=== PATIENT | male | born 1945 | race Caucasian/White ===

== ENCOUNTER 2018-08-17 12:32 | Inpatient (IN) ==
--- NOTE | 2018-08-17 13:20 | Emergency Department Note ---
Disposition Clinical Impression: Increased oxygen demand, Failure of outpatient treatment Community acquired pneumonia Qualifiers: Laterality: right Lung location: lower lobe of lung Qualified Code(s): J18.1 - Lobar pneumonia, unspecified organism Disposition: Admitted As Inpatient Condition: Fair Referrals: Filiberto Weiss DO [Primary Care Provider] - Time of Disposition: 14:42 General Adult HPI - General Chief complaint: ED Shortness of Breath/Dyspnea Stated complaint: Weakness,FIDEL,Chills Time Seen by Provider: 08/17/18 12:43 Source: patient Mode of arrival: EMS Limitations: no limitations Nursing Notes Reviewed: Yes Vital Signs Reviewed: Yes - History of Present Illness HPI Narrative: 72-year-old male presents with cough and objective fever. Patient with history of lung cancer to the right lung, with complete left lung removal. Patient pr esents with 1 week of cough, without production, subjective fever and chills that is worsening over the past few days. He was seen by his primary care provider a few days ago, at that point in time he was prescribed prednisone for 5 days as well as azithromycin pack. He has been taking this as prescribed however 2 days ago his symptoms worsened. He does wear 2 L nasal cannula at home chronically he has had to go up to 3, he has had increased exertional dyspnea. He does have pain in the middle of his chest when he coughs. Otherwise no chest pain present currently. No abdominal pain, nausea, vomiting, change in bowels or bladder. Pain Scale: 0 - Related Data Home Medications Medication Instructions Recorded Confirmed Acetaminophen [Non-Aspirin] 325 mg PO AD PRN 04/02/16 04/15/18 Albuterol Sulfate [Proair Hfa] 1 puff IH AD PRN 04/02/16 04/15/18 Amlodipine Besylate 2.5 mg PO DAILY 04/02/16 04/15/18 Metoprolol Succinate 100 mg PO DAILY 04/02/16 04/15/18 Simvastatin [Zocor] 40 mg PO HS 04/02/16 04/15/18 Tiotropium [Spiriva] 18 mcg IH DAILY 04/02/16 04/15/18 Allergies Allergy/AdvReac Type Severity Reaction Status Date / Time cephalexin [From Keflex] Allergy Severe Anaphylaxis Verified 04/15/18 11:20 Penicillins Allergy Severe Anaphylaxis Verified 04/15/18 11:20 All systems ED: reviewed and negative except as stated. Review of Systems: As Per HPI Constitutional: Reports: fever, chills ENT ED: Reports: congestion Cardiovascular: Reports: chest pain, dyspnea on exertion. Denies: palpitations, syncope Respiratory: Reports: cough, dyspnea. Denies: wheezes, hemoptysis, sputum production Gastrointestinal: Denies: abdominal pain, nausea, vomiting Musculoskeletal: Denies: back pain Integumentary: Denies: rash Neurological: Denies: headache, weakness, confusion Endocrine: Denies: fatigue Past Medical History - Past Medical History Medical history: Reports: cancer, COPD, diabetes, hyperlipidemia, myocardial infarction Psychiatric history: Reports: no psych history - Social History Smoking Status: Former smoker Smokeless Tobacco Status: No Alcohol use: Reports: none Drug use: Reports: none Physical Exam General: Conversant. No apparent distress. Follow commands. Appears stated age. Neck: No JVD. Trachea midline. Neck supple. Eyes: PERRL. No scleral icterus. HENT: Normocephalic and atraumatic. Dry mucous membranes. Patient with 2 L nasal cannula Cardiovascular: Regular rate and rhythm. Normal S1 and S2. No murmurs appreciated. Normal capillary refill. Extremities well perfused with 2+ distal pulses bilaterally. No edema. Pulmonary: without breath sounds to the right side, left breath sounds are appropriate without wheezing or rhonchi No wheezes, rales, or rhonchi. Not in respiratory distress. Speaks in full sentences. Abdomen: Soft, nondistended, without tenderness. No bruits or masses. No guarding or rebound. Neuro: Alert and oriented x3. No slurred speech. No focal deficits noted. Skin: No rashes noted on visualized skin. Musculoskeletal: No bony abnormalities visualized. Moves all extremities. Psych: Normal mood. Pleasant. Makes appropriate eye contact. - General Limitations: no limitations General appearance: alert, in no apparent distress Course Vital Signs Temperature 99.1 F 08/17/18 12:42 Pulse Rate 79 08/17/18 12:42 Respiratory Rate 26 08/17/18 12:42 Blood Pressure 141/67 08/17/18 12:42 O2 Sat by Pulse Oximetry 91 08/17/18 12:42 Temperature 99.1 F 08/17/18 12:42 Pulse Rate 79 08/17/18 12:42 Respiratory Rate 27 08/17/18 15:43 Blood Pressure 140/65 08/17/18 15:43 O2 Sat by Pulse Oximetry 91 08/17/18 12:42 Oxygen Delivery Oxygen Delivery Nasal Cannula Medical Decision Making - [facility] Narrative Medical decision making narrative: Patient is a 72-year-old male presenting with cough. Patient with known history of right lung removal, subsequently on 2 L of cannula at home. On arrival, patient is satting at 92% on 3 L nasal cannula, this is about patient's baseline of 90-92%. It has been diagnosed with pneumonia by outpatient provider proximally 5-6 days ago, he is fully completed his azithromycin course PREDNISONE. Patient arriving with increased symptoms over the past few days. On arrival, patient is to, however this appears to be patient's baseline, afebrile and normotensive. He is not tachycardic. Patient otherwise in no acute distress, alert and oriented 3. CBC, BMP is was troponin are all within normal limits. Chest x-ray does show continued pulmonary edema which is suggestive of possible continued early pneumonia. This patient has a [place] outpatient therapy at this point as well as his requiring increased oxygen demand, with exertional shortness of breath, feels that the patient would be most appropriate be admitted for observation and treatment. At this point in time, he has been started on Levaquin, as he has an anaphylactic Keflex allergy. I did speak with the patient and his in the room, they agree to admission at this point in time. - Medical Records Medical records reviewed: Yes I reviewed the patient's medical records. - Lab Data Lab results reviewed: Yes I reviewed the patient's lab results. Result diagrams: 08/17/18 13:00 08/17/18 13:00 Lab Results 08/17/18 08/17/18 08/17/18 Range/Units 13:00 13:00 13:00 WBC 9.5 (4.3-11.1) K/mcL RBC 4.28 (4.19-5.50) M/mcL Hgb 13.7 (12.9-16.9) g/dL Hct 43.3 (37.5-50.1) % MCV 101.2 H (83.0-100.0) fL MCH 32.0 (28.0-33.3) pg MCHC 31.6 (31.6-35.5) g/dL RDW 13.7 (11.5-14.5) % Plt Count 148 (140-400) K/mcL MPV 10.1 (9.4-12.4) fL Immature Gran % 0.9 (0-4) % Seg Neutrophils % 84.3 % Lymphocytes % 6.2 % Monocytes % 7.8 % Eosinophils % 0.7 % Basophils % 0.1 % Neutrophils # 8.0 (1.6-8.9) K/mcL Lymphocytes # 0.6 (0.6-4.6) K/mcL Monocytes # 0.7 (0.0-1.3) K/mcL Eosinophils # 0.1 (0.0-0.6) K/mcL Basophils # 0.0 (0.0-0.2) K/mcL Sodium 137 (136-145) mEq/L Potassium 4.0 (3.5-5.1) mEq/L Chloride 95 L (98-107) mEq/L Carbon Dioxide 34 H (23-29) mEq/L BUN 14 (8-23) mg/dL Creatinine 0.70 (0.70-1.30) mg/dL Est GFR ( Amer) > 60 (> 60) Est GFR (Non-Af Amer) > 60 (> 60) BUN/Creatinine Ratio 20 (6-26) Glucose 167 H (70-105) mg/dL Calculated Osmolality 288 (280-300) Lactic Acid 0.9 (0.5-2.2) mmol/L Calcium 9.1 (8.6-10.3) mg/dL Troponin I < 0.03 (< 0.04) ng/mL B-Natriuretic Peptide (Less than 100) pg/mL Urine Color (Yellow) Urine Clarity (Clear) Urine pH (5.0-8.0) pH Units Ur Specific [place] (1.010-1.025) Urine Protein (Neg-Trace) mg/dL Urine Glucose (UA) (Normal) mg/dL Urine Ketones (Negative) mg/dL Urine Blood (Negative) Urine Nitrite (Negative) Urine Bilirubin (Negative) Urine Urobilinogen (Normal) mg/dL Ur Leukocyte Esterase (Negative) Ur Culture Indicated? (NO) 08/17/18 08/17/18 08/17/18 Range/Units 13:00 13:27 15:11 WBC (4.3-11.1) K/mcL RBC (4.19-5.50) M/mcL Hgb (12.9-16.9) g/dL Hct (37.5-50.1) % MCV (83.0-100.0) fL MCH (28.0-33.3) pg MCHC (31.6-35.5) g/dL RDW (11.5-14.5) % Plt Count (140-400) K/mcL MPV (9.4-12.4) fL Immature Gran % (0-4) % Seg Neutrophils % % Lymphocytes % % Monocytes % % Eosinophils % % Basophils % % Neutrophils # (1.6-8.9) K/mcL Lymphocytes # (0.6-4.6) K/mcL Monocytes # (0.0-1.3) K/mcL Eosinophils # (0.0-0.6) K/mcL Basophils # (0.0-0.2) K/mcL Sodium (136-145) mEq/L Potassium (3.5-5.1) mEq/L Chloride (98-107) mEq/L Carbon Dioxide (23-29) mEq/L BUN (8-23) mg/dL Creatinine (0.70-1.30) mg/dL Est GFR ( Amer) (> 60) Est GFR (Non-Af Amer) (> 60) BUN/Creatinine Ratio (6-26) Glucose (70-105) mg/dL Calculated Osmolality (280-300) Lactic Acid 0.6 (0.5-2.2) mmol/L Calcium (8.6-10.3) mg/dL Troponin I (< 0.04) ng/mL B-Natriuretic Peptide 124 H (Less than 100) pg/mL Urine Color Yellow (Yellow) Urine Clarity Clear (Clear) Urine pH 7.0 (5.0-8.0) pH Units Ur Specific [place] 1.010 (1.010-1.025) Urine Protein Negative (Neg-Trace) mg/dL Urine Glucose (UA) Normal (Normal) mg/dL Urine Ketones Negative (Negative) mg/dL Urine Blood Negative (Negative) Urine Nitrite Negative (Negative) Urine Bilirubin Negative (Negative) Urine Urobilinogen 4.0 H (Normal) mg/dL Ur Leukocyte Esterase Negative (Negative) Ur Culture Indicated? NO (NO) - Radiology Data Radiology results reviewed: Yes I reviewed the patient's radiology results. Chest X-Ray 08/17/18 13:08 IMPRESSION: Unchanged opacification of the right hemithorax Possible pulmonary edema noted in the left lung D/ / Raimundo Odom MD / Raimundo dOom MD Interpreting Provider: Raimundo Odom MD - EKG Data EKG #1 EKG attestation: Yes I reviewed and interpreted this EKG. EKG results narrative: EKG performed at 1310 with ventricular rate of 77, regular rhythm, normal axis, no ST segment elevation, depression or T-wave changes, RSR prime is noted in V1 and V2. Attestation Statement - Attestation Attestation: I, Rory Harvey DO, examined this patient [id number] and my medical decision-making was reviewed with Dr. Boone Barone , Resident Physician. I ag ree with the documented findings, disposition and treatment plan as described except to the extent set forth below. I personally supervised and was present for the aguilar/critical portions of the procedures completed by the resident documented below. Please see my progress notes for details.
[2018-08-17 13:22] LABS: Basophils % 0.1 %; Eosinophils # 0.1 K/mcL (0.0-0.6); Eosinophils % 0.7 %; Hematocrit 43.3 % (37.5-50.1); Hemoglobin 13.7 g/dL (12.9-16.9); Immature Granulocytes % 0.9 % (0-4); Lymphocytes # 0.6 K/mcL (0.6-4.6); Lymphocytes % 6.2 %; Mean Corpuscular HGB Conc 31.6 g/dL (31.6-35.5); Mean Corpuscular Volume 101.2 fL (83.0-100.0); Mean Platelet Volume 10.1 fL (9.4-12.4); Monocytes # 0.7 K/mcL (0.0-1.3); Monocytes % 7.8 %; Platelet Count 148 K/mcL (140-400); Red Blood Count 4.28 M/mcL (4.19-5.50); Red Cell Distribution Width 13.7 % (11.5-14.5); Segmented Neutrophils % 84.3 %; White Blood Count 9.5 K/mcL (4.3-11.1)
[2018-08-17 13:35] LABS: Bilirubin,Urine Negative (Negative); Blood,Urine Negative (Negative); Clarity,Urine Clear (Clear); Color,Urine Yellow (Yellow); Glucose,Urine (UA) Normal (Normal); Ketones,Urine Negative (Negative); Leukocyte Esterase,Urine Negative (Negative); Nitrite,Urine Negative (Negative); Protein,Urine Negative (Neg-Trace)
[2018-08-17 13:41] LABS: BUN/Creatinine Ratio 20 (6-26); Blood Urea Nitrogen 14 mg/dL (8-23); Calcium 9.1 mg/dL (8.6-10.3); Carbon Dioxide 34 mEq/L (23-29); Chloride 95 mEq/L (98-107); Glucose 167 mg/dL (70-105); Osmolality,Calculated 288 (280-300); Sodium 137 mEq/L (136-145); Troponin I < 0.03 ng/mL (< 0.04); eGFR For African Americans > 60 (> 60); eGFR For Non-African Americans > 60 (> 60)
--- NOTE | 2018-08-17 14:14 | Emergency Department Note ---
Disposition Clinical Impression: Increased oxygen demand, Failure of outpatient treatment Community acquired pneumonia Qualifiers: Laterality: right Lung location: lower lobe of lung Qualified Code(s): J18.1 - Lobar pneumonia, unspecified organism Disposition: Admitted As Inpatient Condition: Fair Time of Disposition: 15:10 General Adult HPI - General Chief complaint: ED Shortness of Breath/Dyspnea Stated complaint: Weakness,FIDEL,Chills Time Seen by Provider: 08/17/18 12:43 Source: patient Mode of arrival: EMS Limitations: no limitations - History of Present Illness Pain Scale: 0 - Related Data Home Medications Medication Instructions Recorded Confirmed Acetaminophen [Non-Aspirin] 325 mg PO AD PRN 04/02/16 04/15/18 Albuterol Sulfate [Proair Hfa] 1 puff IH AD PRN 04/02/16 04/15/18 Amlodipine Besylate 2.5 mg PO DAILY 04/02/16 04/15/18 Metoprolol Succinate 100 mg PO DAILY 04/02/16 04/15/18 Simvastatin [Zocor] 40 mg PO HS 04/02/16 04/15/18 Tiotropium [Spiriva] 18 mcg IH DAILY 04/02/16 04/15/18 Allergies Allergy/AdvReac Type Severity Reaction Status Date / Time cephalexin [From Keflex] Allergy Severe Anaphylaxis Verified 04/15/18 11:20 Penicillins Allergy Severe Anaphylaxis Verified 04/15/18 11:20 Constitutional: Reports: fever, chills ENT ED: Reports: congestion Cardiovascular: Reports: chest pain, dyspnea on exertion. Denies: palpitations, syncope Respiratory: Reports: cough, dyspnea. Denies: wheezes, hemoptysis, sputum production Gastrointestinal: Denies: abdominal pain, nausea, vomiting Musculoskeletal: Denies: back pain Integumentary: Denies: rash Neurological: Denies: headache, weakness, confusion Endocrine: Denies: fatigue Past Medical History - Past Medical History Medical history: Reports: cancer, COPD, diabetes, hyperlipidemia, myocardial infarction Psychiatric history: Reports: no psych history - Social History Smoking Status: Former smoker Smokeless Tobacco Status: No Alcohol use: Reports: none Drug use: Reports: none Physical Exam - General Limitations: no limitations General appearance: alert, in no apparent distress Course Vital Signs Temperature 99.1 F 08/17/18 12:42 Pulse Rate 79 08/17/18 12:42 Respiratory Rate 26 08/17/18 12:42 Blood Pressure 141/67 08/17/18 12:42 O2 Sat by Pulse Oximetry 91 08/17/18 12:42 Temperature 99.1 F 08/17/18 12:42 Pulse Rate 79 08/17/18 12:42 Respiratory Rate 26 08/17/18 12:42 Blood Pressure 141/67 08/17/18 12:42 O2 Sat by Pulse Oximetry 91 08/17/18 12:42 Oxygen Delivery Oxygen Delivery Nasal Cannula Medical Decision Making - Lab Data Result diagrams: 08/17/18 13:00 08/17/18 13:00 Lab Results 08/17/18 08/17/18 08/17/18 Range/Units 13:00 13:00 13:00 WBC 9.5 (4.3-11.1) K/mcL RBC 4.28 (4.19-5.50) M/mcL Hgb 13.7 (12.9-16.9) g/dL Hct 43.3 (37.5-50.1) % MCV 101.2 H (83.0-100.0) fL MCH 32.0 (28.0-33.3) pg MCHC 31.6 (31.6-35.5) g/dL RDW 13.7 (11.5-14.5) % Plt Count 148 (140-400) K/mcL MPV 10.1 (9.4-12.4) fL Immature Gran % 0.9 (0-4) % Seg Neutrophils % 84.3 % Lymphocytes % 6.2 % Monocytes % 7.8 % Eosinophils % 0.7 % Basophils % 0.1 % Neutrophils # 8.0 (1.6-8.9) K/mcL Lymphocytes # 0.6 (0.6-4.6) K/mcL Monocytes # 0.7 (0.0-1.3) K/mcL Eosinophils # 0.1 (0.0-0.6) K/mcL Basophils # 0.0 (0.0-0.2) K/mcL Sodium 137 (136-145) mEq/L Potassium 4.0 (3.5-5.1) mEq/L Chloride 95 L (98-107) mEq/L Carbon Dioxide 34 H (23-29) mEq/L BUN 14 (8-23) mg/dL Creatinine 0.70 (0.70-1.30) mg/dL Est GFR ( Amer) > 60 (> 60) Est GFR (Non-Af Amer) > 60 (> 60) BUN/Creatinine Ratio 20 (6-26) Glucose 167 H (70-105) mg/dL Calculated Osmolality 288 (280-300) Lactic Acid 0.9 (0.5-2.2) mmol/L Calcium 9.1 (8.6-10.3) mg/dL Troponin I < 0.03 (< 0.04) ng/mL B-Natriuretic Peptide (Less than 100) pg/mL Urine Color (Yellow) Urine Clarity (Clear) Urine pH (5.0-8.0) pH Units Ur Specific [place] (1.010-1.025) Urine Protein (Neg-Trace) mg/dL Urine Glucose (UA) (Normal) mg/dL Urine Ketones (Negative) mg/dL Urine Blood (Negative) Urine Nitrite (Negative) Urine Bilirubin (Negative) Urine Urobilinogen (Normal) mg/dL Ur Leukocyte Esterase (Negative) Ur Culture Indicated? (NO) 08/17/18 08/17/18 Range/Units 13:00 13:27 WBC (4.3-11.1) K/mcL RBC (4.19-5.50) M/mcL Hgb (12.9-16.9) g/dL Hct (37.5-50.1) % MCV (83.0-100.0) fL MCH (28.0-33.3) pg MCHC (31.6-35.5) g/dL RDW (11.5-14.5) % Plt Count (140-400) K/mcL MPV (9.4-12.4) fL Immature Gran % (0-4) % Seg Neutrophils % % Lymphocytes % % Monocytes % % Eosinophils % % Basophils % % Neutrophils # (1.6-8.9) K/mcL Lymphocytes # (0.6-4.6) K/mcL Monocytes # (0.0-1.3) K/mcL Eosinophils # (0.0-0.6) K/mcL Basophils # (0.0-0.2) K/mcL Sodium (136-145) mEq/L Potassium (3.5-5.1) mEq/L Chloride (98-107) mEq/L Carbon Dioxide (23-29) mEq/L BUN (8-23) mg/dL Creatinine (0.70-1.30) mg/dL Est GFR ( Amer) (> 60) Est GFR (Non-Af Amer) (> 60) BUN/Creatinine Ratio (6-26) Glucose (70-105) mg/dL Calculated Osmolality (280-300) Lactic Acid (0.5-2.2) mmol/L Calcium (8.6-10.3) mg/dL Troponin I (< 0.04) ng/mL B-Natriuretic Peptide 124 H (Less than 100) pg/mL Urine Color Yellow (Yellow) Urine Clarity Clear (Clear) Urine pH 7.0 (5.0-8.0) pH Units Ur Specific [place] 1.010 (1.010-1.025) Urine Protein Negative (Neg-Trace) mg/dL Urine Glucose (UA) Normal (Normal) mg/dL Urine Ketones Negative (Negative) mg/dL Urine Blood Negative (Negative) Urine Nitrite Negative (Negative) Urine Bilirubin Negative (Negative) Urine Urobilinogen 4.0 H (Normal) mg/dL Ur Leukocyte Esterase Negative (Negative) Ur Culture Indicated? NO (NO) Attestation Statement - Attestation Attestation: I, Rory Harvey DO, examined this patient [id number] and my medical decision-making was reviewed with Dr. Boone Barone , Resident Physician. I agree with the documented findings, disposition and treatment plan as described except to the extent set forth below. I personally supervised and was present f or the aguilar/critical portions of the procedures completed by the resident documented below. Please see my progress notes for details. 72-year-old male presents emergency room for evaluation of generalized malaise and cough. Patient denies any fevers or chills. Denies any headache or vision change. He has not had any chest pain. His had some slight increased work of breathing and productive sputum. Patient is a known right-sided lobectomy of the lung. Patient has not had any falls trauma or injury. Currently is denying nausea vomiting or diarrhea. Patient has had intermittent chills at home but nothing documented here at this time. He has not traveled outside the country and has not had any new medication started this point. Patient is clinically stable in presentation with normal vital signs. Temperature was reviewed. He is sitting up in the bed. He speaks in full sentences. He is on his typical 2 L of oxygen and has a normal pulse ox of about 91-93% based on described pulse ox at home. Significantly diminished breath sounds in the right side consistent with previous history. Left lung sounds appropriate at this time heart is regular. Abdomen is soft nontender nondistended with no pulsatile masses or lesions. No other acute findings noted on exam. Extremities otherwise normal. She will have screening evaluation completed here today looking for any pulmonar y related issue that would be concerning at this time. Patient has been appropriately treated with antibiotic the outpatient setting the concern is noted for failed outpatient management. Disposition to be determined once full workup and treatment course including chest x-ray EKG CBC chemistry lites and troponin have been resulted. EKG was reviewed by myself in documented in the resident physician's note. See detailed documentation the physical exam, medical intervention, medical decision-making and disposition in the resident physician's documentation. No critical care applied the patient's treatment course at this time. 1500 Patient feels better. He is requiring more oxygen at home. Chest x-ray does show concern for pulmonary edema versus infection. Levaquin was added on for craniocaudal pneumonia treatment. Cultures were ordered. Lactic acid was negative. Patient was discussed with the hospitalist Dr. de jesus. Detailed review the presentation symptoms medical intervention as well as the patient's surgical history were discussed at length. Patient will be admitted for what appears to be symptomatic pneumonia versus early pulmonary congestion. Patient will be monitored in the emergency department until the admission process is completed.
[2018-08-17] MEDS ORDERED: cefTRIAXone 1,000 MG in Water for inj. (sterile) 10 ML IVP ONE (14:35)
[2018-08-17] MEDS ORDERED: levoFLOXacin 500 MG TABLET PO ONE (14:41)
--- NOTE | 2018-08-17 14:59 | Internal Med History&Physical ---
Date of Encounter: 08/17/18 Time of Encounter: 15:03 Internal Medicine - H&P: HPI History of present illness: Mr. Johnson is a 72 year old male with history of non small cell lung cancer with right lung removal in 2003, COPD on 2L O2 at home, presents to ED for dyspnea. Patient went to primary care and given Prednisone for 5 days and Z-vladimir. Symptoms still worsened. He required increase in oxygen at home. He admits to subjective fevers/chills, denies nausea/vomiting, SOB. In the ED a chest x-ray showed possible pulmonary edema of left lung. He denies any edema or orthopnea. He was given Rocephin and Levaquin. FH reviewed and non-contributory. Past Med Surg Social Fam HX - Past Medical History Medical history: cancer, COPD, diabetes, hyperlipidemia, myocardial infarction Psychiatric history: no psych history - Past Surgical History Additional surgical history: right lung removed - Social History Smoking Status: Former smoker Smokeless Tobacco Status: No Alcohol use: none Drug use: none Internal Medicine - H&P: Meds Acetaminophen [Non-Aspirin] 325 mg PO AD PRN 04/02/16 [History] Albuterol Sulfate [Proair Hfa] 1 puff IH AD PRN 04/02/16 [History] Amlodipine Besylate 2.5 mg PO DAILY 04/02/16 [History] Metoprolol Succinate 100 mg PO DAILY 04/02/16 [History] Simvastatin [Zocor] 40 mg PO HS 04/02/16 [History] Tiotropium [Spiriva] 18 mcg IH DAILY 04/02/16 [History] Allergy/AdvReac Type Severity Reaction Status Date / Time cephalexin [From Keflex] Allergy Severe Anaphylaxis Verified 04/15/18 11:20 Penicillins Allergy Severe Anaphylaxis Verified 04/15/18 11:20 All Systems PM: A 10-system review of systems was performed and is negative for pertinent findings except as documented above in the HPI. - Constitutional Constitutional: chills, fever(s), no night sweats - EENT Eyes: no change in vision, no discharge, no pain, no photophobia Ears: no ear discharge, no ear pain, no tinnitus Nose, mouth and throat: no dysphagia, no nasal discharge, no neck pain, no sore throat - Cardiovascular Cardiovascular ROS IM: dyspnea, no chest pain, no diaphoresis, no l ightheadedness, no palpitations, no syncope - Respiratory Respiratory: cough, dyspnea, excessive phlegm production, no wheezing - Gastrointestinal Gastrointestinal: no abdominal pain, no diarrhea, no hematemesis, no hemato chezia, no melena, no nausea, no vomiting - Musculoskeletal Musculoskeletal ROS IM: no numbness, no tingling - Integumentary Integumentary IM: no rash, no unusual bruising - Neurological Neurological ROS: no confusion, no convulsions, no focal weakness, no numbness, no tingling, no tremor(s) - Hematologic/Lymphatic Hematologic/Lymphatic: no easy bruising - Constitutional Vitals: Temp Pulse Resp BP Pulse Ox 99.1 F 79 26 141/67 91 08/17/18 12:42 08/17/18 12:42 08/17/18 12:42 08/17/18 12:42 08/17/18 12:42 General appearance: Present: A&O X 3, no acute distress Exam: . - Head Head exam: Present: atraumatic, normocephalic - Eye Eye exam: Present: PERRL, conjuntiva pink, sclera anicteric Pupils: Present: PERRL - Neck Neck exam general surgery: Present: supple, trachea midline. Absent: lymphadenopathy - Respiratory Respiratory exam: Present: decreased breath sounds (absent right breath sounds, as expected. Left lung with decreased breath sounds overall with fine rales.). Absent: accessory muscle use, rales, rhonchi, wheezes - Cardiovascular Cardiovascular exam: Present: RRR, +S1, +S2. Absent: diastolic murmur, gallop, rubs, systolic murmur - GI/Abdominal GI/Abdominal exam: Present: normal bowel sounds, soft, no peritoneal signs. Absent: distended, tenderness - Extremities Exam Extremities exam: Present: warm, radial pulses palpable and symmetrical. Absent: calf tenderness, cyanotic, pedal edema - Neurological Exam Neurological exam: Present: CN II-XII intact, oriented X3, no focal deficits. Absent: pronater drift, facial droop, speech deficit - Skin Skin exam: Present: dry, intact Internal Med - H&P Results - Labs CBC & Chem 7: 08/17/18 13:00 08/17/18 13:00 Labs: Short CBC 08/17/18 Range/Units 13:00 WBC 9.5 (4.3-11.1) K/mcL Hgb 13.7 (12.9-16.9) g/dL Hct 43.3 (37.5-50.1) % Plt Count 148 (140-400) K/mcL Neutrophils # 8.0 (1.6-8.9) K/mcL BMP 08/17/18 13:00 Sodium 137 Potassium 4.0 Chloride 95 L Carbon Dioxide 34 H BUN 14 Creatinine 0.70 Glucose 167 H Calcium 9.1 Cardiac Enzymes 08/17/18 Range/Units 13:00 Troponin I < 0.03 (< 0.04) ng/mL Urine 08/17/18 Range/Units 13:27 Urine Color Yellow (Yellow) Urine Clarity Clear (Clear) Urine pH 7.0 (5.0-8.0) pH Units Ur Specific [place] 1.010 (1.010-1.025) Urine Protein Negative (Neg-Trace) mg/dL Urine Glucose (UA) Normal (Normal) mg/dL - Impressions ITS Impressions Chest X-Ray 08/17/18 13:08 IMPRESSION: Unchanged opacification of the right hemithorax Possible pulmonary edema noted in the left lung D/ / Raimundo Odom MD / Raimundo Odom MD Interpreting Provider: Raimundo Odom MD - Assessment and Plan (1) Acute and chronic respiratory failure with hypoxia Current Visit: Yes Status: Acute Assessment and plan: Based on clinical presentation, presumed pneumonia with failed treatment from azithromycin. - Continue Levaquin - RIP, Procalcitonin, legionella/strep pneumo antigens - Duo nebs scheduled and prn. - sputum culture. (2) Coronary artery disease Current Visit: Yes Status: Acute Qualifiers: Coronary Disease-Associated Artery/Lesion type: [place] artery [place] vs. transplanted heart: [place] heart Associated angina: without angina Qualified Code(s): I25.10 - Atherosclerotic heart disease of [place] coronary artery without angina pectoris (3) Chronic respiratory failure Current Visit: Yes Status: Acute Qualifiers: Respiratory failure complication: hypoxia Qualified Code(s): J96.11 - Chronic respiratory failure with hypoxia (4) COPD (chronic obstructive pulmonary disease) Current Visit: Yes Status: Acute Assessment and plan: See above Qualifiers: COPD type: unspecified COPD Qualified Code(s): J44.9 - Chronic obstructive pulmonary disease, unspecified (5) Diabetes Current Visit: Yes Status: Acute Assessment and plan: Diabetic diet, ISS Qualifiers: Diabetes mellitus type: type 2 Diabetes mellitus buttermaker continuous churn insulin use: unspecified senior living insulin use status Diabetes mellitus complication status: without complication Qualified Code(s): E11.9 - Type 2 diabetes mellitus without complications (6) Community acquired pneumonia Current Visit: Yes Status: Acute Assessment and plan: see above Qualifiers: Laterality: right Lung location: lower lobe of lung Qualified Code(s): J18.1 - Lobar pneumonia, unspecified organism (7) Failure of outpatient treatment Current Visit: Yes Status: Acute (8) Non-small cell cancer of right lung Current Visit: No Status: Chronic Assessment and plan: s/p right lung removal 2004 - Time Spent With Patient Total time spent is greater than 50% in coordination of care (as documented) at patient's floor/unit and/or counseling patient:
[2018-08-17] MEDS ORDERED: Naloxone 0.4 MG/ML INJ IVP PRN (15:39)
[2018-08-17] MEDS: Ipratropium/Albuterol Neb 3 ML IH SCH ×2 (16:28→22:53)
[2018-08-17] MEDS: Insulin LISPRO 300 UNITS/3 ML VIAL SQ SCH ×2 (16:54→21:10)
[2018-08-17 18:04] LABS: Adenovirus Not Detected (Not Detect); Bordetella Pertussis Not Detected (Not Detect); Chlamydophila pneumoniae Not Detected (Not Detect); Coronavirus 229E Not Detected (Not Detect); Coronavirus HKU1 Not Detected (Not Detect); Coronavirus NL63 Not Detected (Not Detect); Coronavirus OC43 Not Detected (Not Detect); Human Metapneumovirus Not Detected (Not Detect); Human Rhinovirus/Enterovirus Not Detected (Not Detect); Influenza A Subtype 2009 H1 Not Detected (Not Detect); Influenza A Untypeable Not Detected (Not Detect); Influenza B Not Detected (Not Detect); Mycoplasma pneumoniae Not Detected (Not Detect); Parainfluenza Virus 1 Not Detected (Not Detect); Parainfluenza Virus 2 Not Detected (Not Detect); Parainfluenza Virus 3 Not Detected (Not Detect); Parainfluenza Virus 4 Not Detected (Not Detect); Respiratory Syncytial Virus Not Detected (Not Detect)
[2018-08-18 02:05] LABS: BUN/Creatinine Ratio 21 (6-26); Blood Urea Nitrogen 17 mg/dL (8-23); Calcium 8.9 mg/dL (8.6-10.3); Carbon Dioxide 34 mEq/L (23-29); Chloride 95 mEq/L (98-107); Glucose 105 mg/dL (70-105); Osmolality,Calculated 284 (280-300); Sodium 136 mEq/L (136-145); eGFR For African Americans > 60 (> 60); eGFR For Non-African Americans > 60 (> 60)
[2018-08-18] MEDS: Ipratropium/Albuterol Neb 3 ML IH SCH ×4 (04:50→22:54)
[2018-08-18] MEDS: *HR* Enoxaparin 40 MG/0.4 ML SYRINGE SQ SCH (05:54)
--- NOTE | 2018-08-18 07:48 | Internal Med Progress Note ---
Hospitalist Progress Note - Encounter Date of Encounter: 08/18/18 Time of Encounter: 10:35 - Subjective Interval History: Patient had fever of 101 F overnight. Denied any SOB, CP, palpitations, n/v. - Exam Vitals: Temp Pulse Resp BP Pulse Ox 98.9 F 80 16 116/61 91 08/18/18 07:27 08/18/18 07:27 08/18/18 07:27 08/18/18 07:27 08/18/18 07:27 Exam: General: Alert and oriented 3 Skin:Normal color, no rash, no lesions. HEENT:EOM, pupils equal, round and reactive. Cardiovascular:Normal S1 & S2, no rubs, murmurs or gallops. No JVD. Pulse regular. Lungs:left lung field CTAB, right lung field absent as expected Abdomen:Soft, non-tender, no rigidity. Extremities:No deformity, no edema or tenderness, no joint swelling or clubbing. Neurological:Normal cognition and motor skills. Pulses:Carotid and radial pulses normal +2. - Assessment and Plan (1) Acute and chronic respiratory failure with hypoxia Current Visit: Yes Status: Acute Assessment and Plan: Based on clinical presentation, presumed pneumonia with failed treatment from azithromycin. RIP negative, strep/legionella ag's negative. Procal pending, sputum culture pending. - Continue Levaquin - Duo nebs scheduled and prn. - sputum culture. (2) Coronary artery disease Current Visit: Yes Status: Acute (3) Chronic respiratory failure Current Visit: Yes Status: Acute (4) COPD (chronic obstructive pulmonary disease) Current Visit: Yes Status: Acute Assessment and Plan: See above, not in acute exacerbation. If develops wheezing, will start steroids. (5) Diabetes Current Visit: Yes Status: Acute Assessment and Plan: Diabetic diet, ISS (6) Community acquired pneumonia Current Visit: Yes Status: Acute Assessment and Plan: see above (7) Failure of outpatient treatment Current Visit: Yes Status: Acute (8) Non-small cell cancer of right lung Current Visit: No Status: Chronic Assessment and Plan: s/p right lung removal 2003 - Time Spent with Patient Total time spent is greater than 50% in coordination of care (as documented) at patient's floor/unit and/or counseling patient: Internal Medicine: Result - Labs CBC & Chem 7: 08/17/18 13:00 08/18/18 01:01 Labs: Short CBC 08/17/18 Range/Units 13:00 WBC 9.5 (4.3-11.1) K/mcL Hgb 13.7 (12.9-16.9) g/dL Hct 43.3 (37.5-50.1) % Plt Count 148 (140-400) K/mcL Neutrophils # 8.0 (1.6-8.9) K/mcL BMP 08/17/18 08/18/18 13:00 01:01 Sodium 137 136 Potassium 4.0 4.0 Chloride 95 L 95 L Carbon Dioxide 34 H 34 H BUN 14 17 Creatinine 0.70 0.82 Glucose 167 H 105 Calcium 9.1 8.9 Cardiac Enzymes 08/17/18 Range/Units 13:00 Troponin I < 0.03 (< 0.04) ng/mL Urine 08/17/18 Range/Units 13:27 Urine Color Yellow (Yellow) Urine Clarity Clear (Clear) Urine pH 7.0 (5.0-8.0) pH Units Ur Specific [place] 1.010 (1.010-1.025) Urine Protein Negative (Neg-Trace) mg/dL Urine Glucose (UA) Normal (Normal) mg/dL - Impressions Impressions Chest X-Ray 08/17/18 13:08 IMPRESSION: Unchanged opacification of the right hemithorax Possible pulmonary edema noted in the left lung D/ / Raimundo Odom MD / Raimundo Odom MD Interpreting Provider: Raimundo Odom MD Consult Discharge Plan - Plan Referrals: Filiberto Weiss DO [Primary Care Provider] - (2) Coronary artery disease Qualifiers: Coronary Disease-Associated Artery/Lesion type: [place] artery [place] vs. transplanted heart: [place] heart Associated angina: without angina Qualified Code(s): I25.10 - Atherosclerotic heart disease of [place] coronary artery without angina pectoris (3) Chronic respiratory failure Qualifiers: Respiratory failure complication: hypoxia Qualified Code(s): J96.11 - Chronic respiratory failure with hypoxia (4) COPD (chronic obstructive pulmonary disease) Qualifiers: COPD type: unspecified COPD Qualified Code(s): J44.9 - Chronic obstructive pulmonary disease, unspecified (5) Diabetes Qualifiers: Diabetes mellitus type: type 2 Diabetes mellitus section housekeeper insulin use: unspecified long-term insulin use status Diabetes mellitus complication status: without complication Qualified Code(s): E11.9 - Type 2 diabetes mellitus without complications (6) Community acquired pneumonia Qualifiers: Laterality: right Lung location: lower lobe of lung Qualified Code(s): J18.1 - Lobar pneumonia, unspecified organism
[2018-08-18] MEDS: Insulin LISPRO 300 UNITS/3 ML VIAL SQ SCH ×4 (08:57→20:02)
[2018-08-18] MEDS ORDERED: *HR* Dextrose 50 % in Water (Syg) 50 ML SYRINGE IVP PRN (09:22)
[2018-08-18] MEDS ORDERED: D5% in Water 1,000 ML IVC PRN (09:22)
[2018-08-18] MEDS ORDERED: Dextrose Gel 15 GM/37.5 ML TUBE PO PRN ×2 (09:22)
--- NOTE | 2018-08-18 10:39 | Electrocardiograph Report ---
[place] [id number] Test Date: 2018-08-17 Pat Name: Didier Johnson Department: [id number] Room: 2A44 Gender: M Channel Marketing Manager: : 1945 Requested By: Rory Harvey Order Number: [id number] Reading MD: Ying Adrian Measurements Intervals [place] Rate: 77 P: 51 NM: 127 QRS: 56 QRSD: 110 T: 67 QT: 389 QTc: 441 Interpretive Statements Sinus rhythm RSR' in V1 or V2, right VCD or RVH Electronically Signed On 08-18-2018 10:37:37 EDT by Ying Adrian
[2018-08-18] MEDS: levoFLOXacin 750 MG TABLET PO SCH (14:12)
[2018-08-19] MEDS: Ipratropium/Albuterol Neb 3 ML IH SCH ×4 (04:01→22:07)
[2018-08-19] MEDS: Acetaminophen 325 MG TABLET PO PRN ×3 (04:57→20:51)
[2018-08-19] MEDS: *HR* Enoxaparin 40 MG/0.4 ML SYRINGE SQ SCH (04:58)
[2018-08-19 06:17] LABS: BUN/Creatinine Ratio 22 (6-26); Blood Urea Nitrogen 18 mg/dL (8-23); Calcium 8.9 mg/dL (8.6-10.3); Carbon Dioxide 33 mEq/L (23-29); Chloride 90 mEq/L (98-107); Glucose 162 mg/dL (70-105); Osmolality,Calculated 281 (280-300); Sodium 133 mEq/L (136-145); eGFR For African Americans > 60 (> 60); eGFR For Non-African Americans > 60 (> 60)
--- NOTE | 2018-08-19 07:41 | Internal Med Progress Note ---
Hospitalist Progress Note - Encounter Date of Encounter: 08/19/18 Time of Encounter: 13:59 - Subjective Interval History: No acute events. Patient temperature not febrile but is elevated with episodes of tachycardia. - Exam Vitals: Temp Pulse Resp BP Pulse Ox 100.0 F H 96 18 143/64 90 08/19/18 06:50 08/19/18 06:50 08/19/18 06:50 08/19/18 06:50 08/19/18 06:50 Exam: General: Alert and oriented 3 Skin:Normal color, no rash, no lesions. HEENT:EOM, pupils equal, round and reactive. Cardiovascular:Normal S1 & S2, no rubs, murmurs or gallops. No JVD. Pulse regul ar. Lungs:left lung field CTAB, right lung field absent as expected Abdomen:Soft, non-tender, no rigidity. Extremities:No deformity, no edema or tenderness, no joint swelling or clubbing. Neurological:Normal cognition and motor skills. Pulses:Carotid and radial pulses normal +2. - Assessment and Plan (1) Acute and chronic respiratory failure with hypoxia Current Visit: Yes Status: Acute Assessment and Plan: Based on clinical presentation, presumed pneumonia with failed treatment from a zithromycin. RIP negative, strep/legionella ag's negative. Procal pending, sputum culture pending. - Continue Levaquin - Duo nebs scheduled and prn. - sputum culture. Patient repeatedly tachycardic overnight with elevated temperatures (but not febrile). Clinically he feels better but having more sputum production. At this point Levaquin may still be drug of choice but will obtain CT chest to have better assessment. (2) Coronary artery disease Current Visit: Yes Status: Acute (3) Chronic respiratory failure Current Visit: Yes Status: Acute (4) COPD (chronic obstructive pulmonary disease) Current Visit: Yes Status: Acute Assessment and Plan: See above, not in acute exacerbation. If develops wheezing, will start steroids. (5) Diabetes Current Visit: Yes Status: Acute Assessment and Plan: Diabetic diet, ISS (6) Community acquired pneumonia Current Visit: Yes Status: Acute Assessment and Plan: see above (7) Failure of outpatient treatment Current Visit: Yes Status: Acute (8) Non-small cell cancer of right lung Current Visit: No Status: Chronic Assessment and Plan: s/p right lung removal 2003 - Time Spent with Patient Total time spent is greater than 50% in coordination of care (as documented) at patient's floor/unit and/or counseling patient: Internal Medicine: Result - Labs CBC & Chem 7: 08/17/18 13:00 08/19/18 05:36 Labs: BMP 08/19/18 05:36 Sodium 133 L Potassium 4.0 Chloride 90 L Carbon Dioxide 33 H BUN 18 Creatinine 0.82 Glucose 162 H Calcium 8.9 Consult Discharge Plan - Plan Referrals: Filiberto Weiss DO [Primary Care Provider] - _ (2) Coronary artery disease Qualifiers: Coronary Disease-Associated Artery/Lesion type: [place] artery [place] vs. transplanted heart: [place] heart Associated angina: without angina Qualified Code(s): I25.10 - Atherosclerotic heart disease of [place] coronary artery without angina pectoris (3) Chronic respiratory failure Qualifiers: Respiratory failure complication: hypoxia Qualified Code(s): J96.11 - Chronic respiratory failure with hypoxia (4) COPD (chronic obstructive pulmonary disease) Qualifiers: COPD type: unspecified COPD Qualified Code(s): J44.9 - Chronic obstructive pulmonary disease, unspecified (5) Diabetes Qualifiers: Diabetes mellitus type: type 2 Diabetes mellitus buttermaker insulin use: unspecified residential insulin use status Diabetes mellitus complication status: without complication Qualified Code(s): E11.9 - Type 2 diabetes mellitus without complications (6) Community acquired pneumonia Qualifiers: Laterality: right Lung location: lower lobe of lung Qualified Code(s): J18.1 - Lobar pneumonia, unspecified organism
[2018-08-19] MEDS: amLODIPine 5 MG TABLET PO SCH (07:58)
[2018-08-19] MEDS: Metoprolol XL (24 HR) Succ 50 MG TAB.ER.24H PO SCH (07:58)
[2018-08-19] MEDS: levoFLOXacin 750 MG TABLET PO SCH (07:58)
[2018-08-19] MEDS: Insulin LISPRO 300 UNITS/3 ML VIAL SQ SCH ×4 (07:58→20:52)
--- NOTE | 2018-08-19 17:02 | Pulmonology Consult Note ---
Date of Encounter: 08/19/18 Time of Encounter: 16:00 Assessment and Plan (1) Acute and chronic respiratory failure with hypoxia Current Visit: Yes Status: Acute Looks like COPD exacerbation and pneumonia to continue with bronchodilators and steroids. (2) Non-small cell cancer of right lung Current Visit: No Status: Chronic Patient non-small cell right lung supported by pneumonectomy patient has this new left lower lobe consolidative opacity which is filling the superior segment of the left lower lobe since patient has stable mediastinal lymphadenopathy mostly look like Possible consolidative opacity with patient positioning with cough and sputum production discharge can be a recurrent lung cancer on the opposite side. Will do bronchoscopy tomorrow keep nothing by mouth after midnight. (3) Lung mass Current Visit: Yes Status: Acute This lung mass can be consolidated opacity due to worsening pneumonia is following the left lower lobe and it is filling the superior segment of the left lower lobe. We will keep him nothing by mouth after midnight for bronchoscopy with the airway evaluation for possible biopsy and BAL. (4) COPD (chronic obstructive pulmonary disease) Current Visit: Yes Status: Acute COPD Exacerbation was treated with bronchodilators and steroids. Qualifiers: COPD type: unspecified COPD Qualified Code(s): J44.9 - Chronic obstructive pulmonary disease, unspecified History of Present Illness Consult date: 08/19/18 Requesting physician: Barrera Stringer Reason for consult: dyspnea, cough, pneumonia, abnormal CXR/CT Chief complaint: cough and shortness of breadth History of present illness: 72-year-old male with past medical history significant for non-small cell lung cancer 2004 supported by pneumonectomy. Patient presenting with worsening shortness of breath cough and sputum production some fever or chills shows some possible left lower lobe consolidative opacity concerning for mass alerted the C T scan the mediastinal lymphadenopathy are stable. Patient denies any loss of weight or loss of appetite patient denies any chest pain chest tightness denies any palpitation or syncope pulmonary was consult for possible bronchoscopy for examined of the left lower lobe lesion patient denies any active abdominal pain denies any focal neurological deficit patient denies any headache or any eye symptoms. Past Med Surg Social Fam HX - Past Medical History Medical history: cancer, COPD, diabetes, hyperlipidemia, myocardial infarction Psychiatric history: no psych history - Past Surgical History Additional surgical history: right lung removed - Social History Smoking Status: Former smoker Smokeless Tobacco Status: No Alcohol use: none Drug use: none Medications and Allergies Acetaminophen [Non-Aspirin] 325 mg PO AD PRN 04/02/16 [History] Albuterol Sulfate [Proair Hfa] 1 puff IH AD PRN 04/02/16 [History] Simvastatin [Zocor] 40 mg PO HS 04/02/16 [History] Tiotropium [Spiriva] 18 mcg IH DAILY 04/02/16 [History] Amlodipine Besylate 2.5 mg PO DAILY 08/17/18 [History] Guaifenesin [Mucinex] 600 mg PO BID PRN 08/17/18 [History] Metformin HCl 500 mg PO BID 08/17/18 [History] Metoprolol Succinate [Toprol Xl] 100 mg PO DAILY 08/17/18 [History] Allergy/AdvReac Type Severity Reaction Status Date / Time cephalexin [From Keflex] Allergy Severe Anaphylaxis Verified 04/15/18 11:20 Penicillins Allergy Severe Anaphylaxis Verified 04/15/18 11:20 All Systems: The remainder of the systems were reviewed and are negative Physical Examination Vital Signs: Vital Signs, Last 4 Hours Temp Pulse Resp BP Pulse Ox 08/19/18 16:38 17 93 08/19/18 15:43 102.4 F H 88 18 145/71 90 General appearance: no acute distress Auscultation: bilateral: rales (Left minimal scattered rales) Cardiovascular: regular rate and rhythm Gastrointestinal: normoactive bowel sounds Extremities: no edema normal mental status, non-focal exam, CN II-XII normal mood appropriate Results - Laboratory Findings CBC and BMP: 08/17/18 13:00 08/19/18 05:36 Abnormal lab findings: Abnormal lab results MCV 101.2 fL (83.0-100.0) H 08/17/18 13:00 Sodium 133 mEq/L (136-145) L 08/19/18 05:36 Chloride 90 mEq/L (98-107) L 08/19/18 05:36 Carbon Dioxide 33 mEq/L (23-29) H 08/19/18 05:36 Glucose 162 mg/dL (70-105) H 08/19/18 05:36 POC Glucose 109 mg/dL (70-99) H 08/18/18 19:10 B-Natriuretic Peptide 124 pg/mL (Less than 100) H 08/17/18 13:00 4.0 mg/dL (Normal) H 08/17/18 13:27 - Microbiology Findings Microbiology Findings: Microbiology, Last 48 Hours 08/17/18 18:00 Legionella Antigen - Final Urine,Clean Catch Streptococcus pneumoniae Antigen (M - Final 08/17/18 15:11 Blood Culture - Preliminary Peripheral Venipuncture Culture is incubating and being continuously monitored for growth. Final report to follow. 08/17/18 15:11 Blood Culture - Preliminary Peripheral Venipuncture Culture is incubating and being continuously monitored for growth. Final report to follow. - Clinical Findings Intake & Output: Intake & Output 08/19/18 08/19/18 08/19/18 07:59 15:59 23:59 Intake Total 360 / 360 Output Total 200 / 600 400 / 600 Balance -200 / -240 -40 / -240 Consult Discharge Plan - Plan Referrals: Filiberto Weiss DO [Primary Care Provider] -
[2018-08-19] MEDS ORDERED: Ibuprofen 600 MG TABLET PO ONE (23:15)
[2018-08-20] MEDS: MethylPREDNISolone 40 MG/ML VIAL IVP SCH ×4 (00:45→18:36)
[2018-08-20] MEDS: Aztreonam 2,000 MG in Water for inj. (sterile) 20 ML IVP SCH ×4 (00:46→17:42)
[2018-08-20] MEDS: Ipratropium/Albuterol Neb 3 ML IH SCH ×4 (03:42→22:33)
[2018-08-20] MEDS: *HR* Enoxaparin 40 MG/0.4 ML SYRINGE SQ SCH (05:14)
[2018-08-20] MEDS: Insulin LISPRO 300 UNITS/3 ML VIAL SQ SCH ×4 (07:42→20:03)
[2018-08-20] MEDS: levoFLOXacin 750 MG TABLET PO SCH (07:47)
[2018-08-20] MEDS: Metoprolol XL (24 HR) Succ 50 MG TAB.ER.24H PO SCH (07:47)
[2018-08-20] MEDS: amLODIPine 5 MG TABLET PO SCH (07:47)
[2018-08-20 08:10] LABS: INR 1.2; Prothrombin Time 13.2 Seconds (9.4-12.1)
[2018-08-20 08:23] LABS: BUN/Creatinine Ratio 28 (6-26); Blood Urea Nitrogen 23 mg/dL (8-23); Calcium 8.4 mg/dL (8.6-10.3); Carbon Dioxide 31 mEq/L (23-29); Chloride 93 mEq/L (98-107); Glucose 201 mg/dL (70-105); Osmolality,Calculated 283 (280-300); Potassium 4.2 mEq/L (3.5-5.1); Sodium 132 mEq/L (136-145); eGFR For African Americans > 60 (> 60); eGFR For Non-African Americans > 60 (> 60)
[2018-08-20] MEDS ORDERED: *HR* Succinylcholine 200 MG/10 ML VIAL IVP ONE (09:30)
[2018-08-20] MEDS ORDERED: Ondansetron 4 MG/2 ML VIAL ONE (09:44)
[2018-08-20] MEDS ORDERED: Dexamethasone 4 MG/ML VIAL ONE (09:44)
--- NOTE | 2018-08-20 09:53 | Anesthesia Evaluation PreOp ---
Date of Encounter: 08/20/18 Time of Encounter: 10:10 - Past History Planned Operation: Bronchoscopy Cardiac History: [place] (1999), HTN, Hyperlipidemia, Cardiac Stent (stents x 2) Pulmonary History: Former smoker (quit 22 years ago), COPD (home O2 continuously at 2L), Snore, Other (acute on chronic respiratory failure, right non-small cell lung CA S/P right pneumonectomy and chemo) ENGINEERING PROGRAM MANAGER History: Denies Any Significant HX Other Medical History: Diabetes Type II Anesthesia History: No Prior Anesthetic Complications, Past Anesthesia Alcohol Use: none Drug use: none Medications and Allergies Acetaminophen [Non-Aspirin] 325 mg PO AD PRN 04/02/16 [History] Albuterol Sulfate [Proair Hfa] 1 puff IH AD PRN 04/02/16 [History] Simvastatin [Zocor] 40 mg PO HS 04/02/16 [History] Tiotropium [Spiriva] 18 mcg IH DAILY 04/02/16 [History] Amlodipine Besylate 2.5 mg PO DAILY 08/17/18 [History] Guaifenesin [Mucinex] 600 mg PO BID PRN 08/17/18 [History] Metformin HCl 500 mg PO BID 08/17/18 [History] Metoprolol Succinate [Toprol Xl] 100 mg PO DAILY 08/17/18 [History] Allergy/AdvReac Type Severity Reaction Status Date / Time cephalexin [From Keflex] Allergy Severe Anaphylaxis Verified 04/15/18 11:20 Penicillins Allergy Severe Anaphylaxis Verified 04/15/18 11:20 - Meds/Allergy Pre-op Review Medications Reviewed: Yes Allergies Reviewed: Yes Beta Blockers on Current Med List: Yes If Beta Blockers taken, Date/Time (Last Dose taken): 08/20/2018 at 0747 Anesthesia Results - Labs 08/17/18 13:00 08/20/18 06:23 - Imaging EKG: report reviewed (08/17/2018 Sinus rhythm RSR' in V1 or V2, right VCD or RVH) Chest x-ray: report reviewed (08/17/2018 IMPRESSION: Unchanged opacification of the right hemithorax Possible pulmonary edema noted in the left lung) Additional studies: 08/19/[address] IMPRESSION: 1. New focal 4.4 x 3.2 cm masslike opacity in the left hilum centered within the superior segment of the left lower lobe. Findings are suspicious for neoplasm, although infection could be a possibility. 2. There are at least 2 new discrete irregular nodules in the left upper lobe suspicious for satellite lesions. 3. Nonspecific patchy ground-glass attenuation in the left lower lobe which may be infectious or inflammatory in etiology and can be followed on subsequent exams. 4. Stable postsurgical changes from right pneumonectomy with a stable loculated pleural effusion. Anesthesia Exam Vital Signs/O2 Sat/Glucose, Most Recent Temp Pulse Resp BP Pulse Ox 98.5 F 78 18 120/66 92 08/20/18 07:21 08/20/18 07:21 08/20/18 07:21 08/20/18 07:21 08/20/18 07:53 Blood Glucose* 219 Height: 6'/1.83m Weight: 206 lbs/93.8 kg NPO (# of Hours): 8 Pain Scale: 0 Pain Scale Used: Numeric (1 - 10) - HEENT Pupil (Motor): EOMI Mallampati: II Teeth: Edentulous Oral Opening: Greater than 3 - ENGINEERING PROGRAM MANAGER LOC: Oriented ENGINEERING PROGRAM MANAGER Motor: Normal RUE, Normal LUE, Normal RLE, Normal LLE, Normal Face ENGINEERING PROGRAM MANAGER Sensory: Normal: RUE, LUE, RLE, LLE, Face - Cardiac Rhythm: Regular Murmur: None - Pulmonary Breath Sounds: bilateral Rales (mild wheezes) Anesthesia Assess/Plan ASA Score: 4 Level of consciousness: Cooperative, Oriented, Tranquil Anesthetic Plan: General Monitoring Plan: Standard Monitors Recovery Plan: PACU
[2018-08-20] MEDS ORDERED: Albuterol 2.5 MG/3 ML NEBULIZER IH ONE (10:17)
[2018-08-20] MEDS ORDERED: Albuterol 2.5 MG/3 ML NEBULIZER ONE (10:20)
[2018-08-20 10:23] LABS: Mycoplasma pneumoniae IgG 0.84 U/L (<=0.09)
[2018-08-20] MEDS ORDERED: Ringers Solution, Lactated 1,000 ML IVC SCH (10:30)
--- NOTE | 2018-08-20 12:19 | Internal Med Progress Note ---
Hospitalist Progress Note - Encounter Date of Encounter: 08/20/18 Time of Encounter: 11:40 - Subjective Interval History: Patient seen and examined this morning at bedside after bronchoscopy. Patient alert and oriented and wants to eat. Denies any fever or chills nausea vomiting or diarrhea. Breathing minimally better. Denies any chest pain. - Exam Vitals: Temp Pulse Resp BP Pulse Ox 97.3 F L 73 18 128/67 94 08/20/18 11:40 08/20/18 11:40 08/20/18 11:40 08/20/18 11:40 08/20/18 11:40 Exam: General: In no acute distress. Respiratory exam: no accessory muscle use, diffuse b/l rhonchi, decreased air entry Rt lung field. Cardiovascular exam: RRR, +S1, +S2. no murmur, gallop, rubs. GI/Abdominal exam: Non-tender, Non-distended, normal bowel sounds, soft, no peritoneal signs. Extremities exam: no pedal edema, pulses palpable in b/l lower extremities. no calf tenderness Neurological exam: CN II-XII intact, AO X3, no focal deficits. Skin exam: No skin rash - Assessment and Plan (1) Non-small cell cancer of right lung Current Visit: No Status: Chronic (2) Community acquired pneumonia Current Visit: Yes Status: Acute (3) Failure of outpatient treatment Current Visit: Yes Status: Acute (4) Coronary artery disease Current Visit: Yes Status: Acute (5) Chronic respiratory failure Current Visit: Yes Status: Acute (6) COPD (chronic obstructive pulmonary disease) Current Visit: Yes Status: Acute (7) Diabetes Current Visit: Yes Status: Acute (8) Acute and chronic respiratory failure with hypoxia Current Visit: Yes Status: Acute - Summary of Assessment and Plan Summary of Assessment and Plan: Assessment Acute Acute and chronic respiratory failure with hypoxia CAP, unclear organism, possible bacteria, LLL COPD exacerbation Chronic DM CAD COPD NSCLC Rt lung- s/p right lung removal 2003 Plan - Failed treatment from azithromycin. RIP negative, strep/legionella ag's negative. Procal negative. s/p bronchoscopy. await Bronchoscopy report. Will discuss with pulmonology - On vancomycin and levaquin. MRSA negative. Will discuss with pulmonary about need for antibiotics - c/w duo nebs scheduled and prn. taper steroids - c/w SSI and accuchecks - c/w home amlodipine, zocor and metoprolol. - On lovenox for dvt ppx. Internal Medicine: Result - Labs CBC & Chem 7: 08/17/18 13:00 08/20/18 06:23 Labs: BMP 08/20/18 06:23 Sodium 132 L Potassium 4.2 Chloride 93 L Carbon Dioxide 31 H BUN 23 Creatinine 0.81 Glucose 201 H Calcium 8.4 L - ABG Interpretation ABG results: PT/INR, D-dimer PT 13.2 Seconds (9.4-12.1) H 08/20/18 06:23 - Impressions Impressions Chest CT 08/19/18 10:32 IMPRESSION: 1. New focal 4.4 x 3.2 cm masslike opacity in the left hilum centered within the superior segment of the left lower lobe. Findings are suspicious for neoplasm, although infection could be a possibility. 2. There are at least 2 new discrete irregular nodules in the left upper lobe suspicious for satellite lesions. 3. Nonspecific patchy ground-glass attenuation in the left lower lobe which may be infectious or inflammatory in etiology and can be followed on subsequent exams. 4. Stable postsurgical changes from right pneumonectomy with a stable loculated pleural effusion. D/ / 08/19/2018 14:11:20 Chula Bess MD / erika Interpreting Provider: Chula Bess MD Consult Discharge Plan - Plan Referrals: Filiberto Weiss DO [Primary Care Provider] - (2) Community acquired pneumonia Qualifiers: Laterality: right Lung location: lower lobe of lung Qualified Code(s): J18.1 - Lobar pneumonia, unspecified organism (4) Coronary artery disease Qualifiers: Coronary Disease-Associated Artery/Lesion type: [place] artery [place] vs. transplanted heart: [place] heart Associated angina: without angina Qualified Code(s): I25.10 - Atherosclerotic heart disease of [place] coronary artery without angina pectoris (5) Chronic respiratory failure Qualifiers: Respiratory failure complication: hypoxia Qualified Code(s): J96.11 - Chronic respiratory failure with hypoxia (6) COPD (chronic obstructive pulmonary disease) Qualifiers: COPD type: unspecified COPD Qualified Code(s): J44.9 - Chronic obstructive pulmonary disease, unspecified (7) Diabetes Qualifiers: Diabetes mellitus type: type 2 Diabetes mellitus intermodal dispatcher insulin use: unspecified detention insulin use status Diabetes mellitus complication status: without complication Qualified Code(s): E11.9 - Type 2 diabetes mellitus w ithout complications
[2018-08-20] MEDS ORDERED: MethylPREDNISolone 40 MG/ML VIAL IVP SCH (13:45)
[2018-08-20 14:42] LABS: Appearance of Body Fluid Cloudy (Clear); Volume of Body Fluid 19 mL
[2018-08-20 14:59] LABS: Appearance of Body Fluid Cloudy (Clear); Volume of Body Fluid 23 mL
--- NOTE | 2018-08-20 15:17 | Pulmonology Progress Note ---
Date of Encounter: 08/20/18 Time of Encounter: 08:00 Assessment and Plan (1) Acute and chronic respiratory failure with hypoxia Current Visit: Yes Status: Acute Patient presenting with acute on chronic respiratory failure with hypoxia most likely due to pneumonia and COPD with exacerbation (2) Non-small cell cancer of right lung Current Visit: No Status: Chronic Patient and non-small cell on the right lung s/p pneumonectomy (3) Lung mass Current Visit: Yes Status: Acute Presentation like pneumonia with left lower lobe consolidative opacity more in favor of the infectious lesion and then malignancy since patient had a previous history of malignancy it is prudent to go with bronchoscopy and airway exam and will possibly a Cytobrush and biopsy. Patient is going for bronchoscopy today. Patient will need 6 weeks follow-up in the pulmonary clinic. (4) COPD (chronic obstructive pulmonary disease) Current Visit: Yes Status: Acute Continue with scheduled bronchodilators and steroids. Patient will need prolonged steroid taper Qualifiers: COPD type: unspecified COPD Qualified Code(s): J44.9 - Chronic obstructive pulmonary disease, unspecified Subjective Principal diagnosis: Left lower lobe masslike opacity in COPD exacerbation Interval history: Patient worsening with cough and sputum production fever or chills left lower lobe consolidative opacity stable mediastinal lymphadenopathy patient is getting prepared for bronchoscopy today for left lower lobe proctoscopy airway exam with possible BAL and Cytobrush. Objective PUL Vital signs: Last Vital Signs Temp 98.2 F 08/20/18 14:01 Pulse 78 08/20/18 14:01 Resp 18 08/20/18 14:01 BP 118/70 08/20/18 14:01 Pulse Ox 91 08/20/18 14:01 Auscultation: left: wheezes (Minimal scattered), right: diminished breath sounds (Absent breath sounds) Cardiovascular: regular rate and rhythm Gastrointestinal: normoactive bowel sounds Extremities: no cyanosis, no edema normal mental status, non-focal exam mood appropriate Results - Laboratory Findings CBC and BMP: 08/17/18 13:00 08/20/18 06:23 PT/INR, D-dimer PT 13.2 Seconds (9.4-12.1) H 08/20/18 06:23 Abnormal lab findings: Abnormal lab results MCV 101.2 fL (83.0-100.0) H 08/17/18 13:00 PT 13.2 Seconds (9.4-12.1) H 08/20/18 06:23 Sodium 132 mEq/L (136-145) L 08/20/18 06:23 Chloride 93 mEq/L (98-107) L 08/20/18 06:23 Carbon Dioxide 31 mEq/L (23-29) H 08/20/18 06:23 28 (6-26) H 08/20/18 06:23 Glucose 201 mg/dL (70-105) H 08/20/18 06:23 POC Glucose 118 mg/dL (70-99) H 08/19/18 15:40 Calcium 8.4 mg/dL (8.6-10.3) L 08/20/18 06:23 B-Natriuretic Peptide 124 pg/mL (Less than 100) H 08/17/18 13:00 4.0 mg/dL (Normal) H 08/17/18 13:27 Fluid Appearance Cloudy (Clear) A 08/20/18 10:43 Fluid Appearance Cloudy (Clear) A 08/20/18 10:43 Mycoplasma pneumon IgG 0.84 U/L (<=0.09) H 08/18/18 01:01 - Microbiology Findings Microbiology Findings: Microbiology, Last 48 Hours 08/20/18 10:43 Fungal Culture - Preliminary Left Lower Lobe Lung Culture is incubating. 08/20/18 10:43 Respiratory Culture - Preliminary Left Upper Lobe Lung 08/20/18 10:43 Respiratory Culture - Preliminary Left Lower Lobe Lung 08/20/18 10:43 Fungal Culture - Preliminary Left Upper Lobe Lung Culture is incubating. 08/20/18 04:01 Sputum Culture - Final Sputum - Clinical Findings Intake & Output: Intake & Output 08/19/18 08/20/18 08/20/18 23:59 07:59 15:59 Intake Total 490 / 850 270 / 510 240 / 510 Output Total 500 / 500 Balance 490 / 250 -230 / 10 240 / 10 Weight 93.8 kg Consult Discharge Plan - Plan Referrals: Leslye Francis MD [Partnered Physician] - (schedule appointment for 6-8 weeks) Filiberto Weiss DO [Primary Care Provider] -
[2018-08-21] MEDS: Aztreonam 2,000 MG in Water for inj. (sterile) 20 ML IVP SCH ×2 (00:32→07:15)
[2018-08-21] MEDS: Ipratropium/Albuterol Neb 3 ML IH SCH ×4 (04:10→22:18)
[2018-08-21 06:05] LABS: BUN/Creatinine Ratio 35 (6-26); Blood Urea Nitrogen 28 mg/dL (8-23); Calcium 8.8 mg/dL (8.6-10.3); Carbon Dioxide 33 mEq/L (23-29); Chloride 93 mEq/L (98-107); Glucose 245 mg/dL (70-105); Osmolality,Calculated 288 (280-300); Potassium 4.7 mEq/L (3.5-5.1); Sodium 132 mEq/L (136-145); eGFR For African Americans > 60 (> 60); eGFR For Non-African Americans > 60 (> 60)
[2018-08-21] MEDS: *HR* Enoxaparin 40 MG/0.4 ML SYRINGE SQ SCH (06:28)
[2018-08-21] MEDS: MethylPREDNISolone 40 MG/ML VIAL IVP SCH ×2 (06:29→20:05)
--- NOTE | 2018-08-21 06:47 | Pulmonology Progress Note ---
Date of Encounter: 08/21/18 Time of Encounter: 06:47 Assessment and Plan (1) Community acquired pneumonia Current Visit: Yes Status: Acute He is being treated with antibiotics and is making an improvement he will need to complete at least a week long course of antimicrobial therapy likely respiratory fluoroquinolone would be adequate I will continue to follow-up of bronchoscopy cultures and if patient discharge before final microbiology her pathology we will notify him he will also need clinic follow-up in 2-3 weeks to follow up clinically as well as repeat his chest CT in 4-6 weeks Qualifiers: Laterality: right Lung location: lower lobe of lung Qualified Code(s): J18.1 - Lobar pneumonia, unspecified organism (2) Non-small cell cancer of right lung Current Visit: No Status: Chronic Follow-up status post bronchoscopy for cytology and we will need follow-up CT scan of the chest in 4-6 weeks (3) COPD (chronic obstructive pulmonary disease) Current Visit: Yes Status: Acute Recommend continuation of prednisone 40 mg daily can be tapered over the next 2- 3 weeks Symbicort 160/4.52 puffs twice a day and schedule bronchodilators DuoNeb nebs every 4 hours with every one hour albuterol as needed Pulmonary will continue to follow peripherally while inpatient and will follow up in clinic as well Qualifiers: COPD type: unspecified COPD Qualified Code(s): J44.9 - Chronic obstructive pulmonary disease, unspecified Subjective Principal diagnosis: Left lower lobe masslike opacity in COPD exacerbation Interval history: Mr. Miller states that he is generally feeling better today. Still occasionally short of breath and coughing up some phlegm denies any hemoptysis denies any untoward effects status post bronchoscopy Objective PUL Vital signs: Last Vital Signs Temp 97.9 F 08/21/18 03:54 Pulse 75 08/21/18 03:54 Resp 14 08/21/18 04:12 BP 104/53 08/21/18 03:54 Pulse Ox 98 08/21/18 04:12 General appearance: no acute distress Eyes: nonicteric ENT: oropharynx moist Neck: supple Effort: normal Auscultation: bilateral: wheezes (faint expiratory wheezes ) Cardiovascular: regular rate and rhythm Gastrointestinal: normoactive bowel sounds Integumentary: normal Extremities: no cyanosis, no edema, no clubbing Musculoskeletal: no deformities normal mental status, non-focal exam mood appropriate Results - Laboratory Findings CBC and BMP: 08/17/18 13:00 08/21/18 05:25 PT/INR, D-dimer PT 13.2 Seconds (9.4-12.1) H 08/20/18 06:23 Abnormal lab findings: Abnormal lab results MCV 101.2 fL (83.0-100.0) H 08/17/18 13:00 PT 13.2 Seconds (9.4-12.1) H 08/20/18 06:23 Sodium 132 mEq/L (136-145) L 08/21/18 05:25 Chloride 93 mEq/L (98-107) L 08/21/18 05:25 Carbon Dioxide 33 mEq/L (23-29) H 08/21/18 05:25 BUN 28 mg/dL (8-23) H 08/21/18 05:25 35 (6-26) H 08/21/18 05:25 Glucose 245 mg/dL (70-105) H 08/21/18 05:25 POC Glucose 219 mg/dL (70-99) H 08/20/18 07:36 Calcium 8.4 mg/dL (8.6-10.3) L 08/20/18 06:23 B-Natriuretic Peptide 124 pg/mL (Less than 100) H 08/17/18 13:00 4.0 mg/dL (Normal) H 08/17/18 13:27 Fluid Appearance Cloudy (Clear) A 08/20/18 10:43 Fluid Appearance Cloudy (Clear) A 08/20/18 10:43 Mycoplasma pneumon IgG 0.84 U/L (<=0.09) H 08/18/18 01:01 - Microbiology Findings Microbiology Findings: Microbiology, Last 48 Hours 08/20/18 10:43 Fungal Culture - Preliminary Left Lower Lobe Lung Culture is incubating. 08/20/18 10:43 Respiratory Culture - Preliminary Left Upper Lobe Lung 08/20/18 10:43 Respiratory Culture - Preliminary Left Lower Lobe Lung 08/20/18 10:43 Fungal Culture - Preliminary Left Upper Lobe Lung Culture is incubating. 08/20/18 04:01 Sputum Culture - Final Sputum - Diagnostic Findings Chest x-ray: report reviewed, image reviewed CT scan - chest: report reviewed, image reviewed - Clinical Findings Intake & Output: Intake & Output 08/20/18 08/20/1808/21/19 15:59 23:59 07:59 Intake Total 240 / 1010 480 / 1010 Output Total 500 / 1000 250 / 250 Balance 240 / 10 - -230 / -230 Weight 94.2 kg Consult Discharge Plan - Plan Referrals: Leslye Francis MD [Partnered Physician] - (schedule appointment for 6-8 weeks) Filiberto Weiss DO [Primary Care Provider] -
[2018-08-21] MEDS: levoFLOXacin 750 MG TABLET PO SCH (07:14)
[2018-08-21] MEDS: amLODIPine 5 MG TABLET PO SCH (07:15)
[2018-08-21] MEDS: Metoprolol XL (24 HR) Succ 50 MG TAB.ER.24H PO SCH (07:15)
[2018-08-21] MEDS: Insulin LISPRO 300 UNITS/3 ML VIAL SQ SCH ×4 (07:24→19:52)
[2018-08-21] MEDS ORDERED: Aminoglycoside Consult 1 EACH MC ONE (07:26)
--- NOTE | 2018-08-21 10:51 | Internal Med Progress Note ---
Hospitalist Progress Note - Encounter Date of Encounter: 08/21/18 Time of Encounter: 10:50 - Subjective Interval History: Patient seen and examined this morning. No acute overnight events. Breathing much improved. Denies any fevers chills nausea vomiting or diarrhea. Afebrile and hemodynamically stable. Denies any chest pain, pain urinary or bowel complaints. - Exam Vitals: Temp Pulse Resp BP Pulse Ox 98.0 F 76 17 130/67 96 08/21/18 06:50 08/21/18 06:50 08/21/18 06:50 08/21/18 06:50 08/21/18 06:50 Exam: General: In no acute distress. Respiratory exam: no accessory muscle use, CTAB. Rt chest scar noted. No air entry on rt. Cardiovascular exam: RRR, +S1, +S2. no murmur, gallop, rubs. GI/Abdominal exam: Non-tender, Non-distended, normal bowel sounds, soft, no peritoneal signs. Extremities exam: 1+ pedal edema, pulses palpable in b/l lower extremities. no calf tenderness Neurological exam: CN II-XII intact, AO X3, no focal deficits. Skin exam: No skin rash - Assessment and Plan (1) Non-small cell cancer of right lung Current Visit: No Status: Chronic (2) Community acquired pneumonia Current Visit: Yes Status: Acute (3) Failure of outpatient treatment Current Visit: Yes Status: Acute (4) Coronary artery disease Current Visit: Yes Status: Acute (5) Chronic respiratory failure Current Visit: Yes Status: Acute (6) COPD (chronic obstructive pulmonary disease) Current Visit: Yes Status: Acute (7) Diabetes Current Visit: Yes Status: Acute (8) Acute and chronic respiratory failure with hypoxia Current Visit: Yes Status: Acute - Summary of Assessment and Plan Summary of Assessment and Plan: Assessment Acute Acute and chronic respiratory failure with hypoxia CAP, unclear organism, possible bacteria, LLL COPD exacerbation Chronic DM CAD COPD NSCLC Rt lung- s/p right lung removal 2003 Plan - Failed treatment from azithromycin. RIP negative, strep/legionella ag's negative. Procal negative but after antibiotics. s/p bronchoscopy. Bronchoscopy report reviewed. Had some mucous plugs and mucopurulent retrun. BAL collected. Discussed with pulmonology. Will stop vancomycin and aztreonam. c/w levaquin. f/u BAL cultures. Will give one dose of lasix given pedal edema and Obtain ECHO. - c/w duo nebs scheduled and prn. taper steroids - c/w SSI and accuchecks - c/w home amlodipine, zocor and metoprolol. - On lovenox for dvt ppx. Internal Medicine: Result - Labs CBC & Chem 7: 08/17/18 13:00 08/21/18 05:25 Labs: BMP 08/21/18 05:25 Sodium 132 L Potassium 4.7 Chloride 93 L Carbon Dioxide 33 H BUN 28 H Creatinine 0.79 Glucose 245 H Calcium 8.8 - ABG Interpretation ABG results: PT/INR, D-dimer PT 13.2 Seconds (9.4-12.1) H 08/20/18 06:23 - Impressions Impressions Chest CT 08/19/18 10:32 IMPRESSION: 1. New focal 4.4 x 3.2 cm masslike opacity in the left hilum centered within the superior segment of the left lower lobe. Findings are suspicious for neoplasm, although infection could be a possibility. 2. There are at least 2 new discrete irregular nodules in the left upper lobe suspicious for satellite lesions. 3. Nonspecific patchy ground-glass attenuation in the left lower lobe which may be infectious or inflammatory in etiology and can be followed on subsequent exams. 4. Stable postsurgical changes from right pneumonectomy with a stable loculated pleural effusion. D/ / 08/19/2018 14:11:20 Chula Bess MD / erika Interpreting Provider: Chula Bess MD Consult Discharge Plan - Plan Referrals: Leslye Francis MD [Partnered Physician] - (schedule appointment for 6-8 weeks) Filiberto Weiss DO [Primary Care Provider] - (2) Community acquired pneumonia Qualifiers: Laterality: right Lung location: lower lobe of lung Qualified Code(s): J18.1 - Lobar pneumonia, unspecified organism (4) Coronary artery disease Qualifiers: Coronary Disease-Associated Artery/Lesion type: [place] artery [place] vs. transplanted heart: [place] heart Associated angina: without angina Qualified Code(s): I25.10 - Atherosclerotic heart disease of [place] coronary artery without angina pectoris (5) Chronic respiratory failure Qualifiers: Respiratory failure complication: hypoxia Qualified Code(s): J96.11 - Chronic respiratory failure with hypoxia (6) COPD (chronic obstructive pulmonary disease) Qualifiers: COPD type: unspecified COPD Qualified Code(s): J44.9 - Chronic obstructive pulmonary disease, unspecified (7) Diabetes Qualifiers: Diabetes mellitus type: type 2 Diabetes mellitus exterminator termite insulin use: unspecified exterminator termite insulin use status Diabetes mellitus complication status: without complication Qualified Code(s): E11.9 - Type 2 diabetes mellitus without complications
[2018-08-21] MEDS ORDERED: Furosemide 40 MG/4 ML VIAL IVP ONE (14:32)
[2018-08-21] MEDS ORDERED: Perflutren Lipid Microsphere 1.3 ML in 0.9 % Sodium Chloride 8.7 ML IVP ONE (18:15)
[2018-08-22] MEDS: Ipratropium/Albuterol Neb 3 ML IH SCH ×3 (03:44→15:07)
[2018-08-22] MEDS: *HR* Enoxaparin 40 MG/0.4 ML SYRINGE SQ SCH (06:08)
[2018-08-22] MEDS: MethylPREDNISolone 40 MG/ML VIAL IVP SCH (06:08)
[2018-08-22 07:37] LABS: BUN/Creatinine Ratio 47 (6-26); Blood Urea Nitrogen 33 mg/dL (8-23); Calcium 8.8 mg/dL (8.6-10.3); Carbon Dioxide 38 mEq/L (23-29); Chloride 92 mEq/L (98-107); Glucose 206 mg/dL (70-105); Osmolality,Calculated 293 (280-300); Potassium 4.7 mEq/L (3.5-5.1); Sodium 135 mEq/L (136-145); eGFR For African Americans > 60 (> 60); eGFR For Non-African Americans > 60 (> 60)
[2018-08-22] MEDS: Insulin LISPRO 300 UNITS/3 ML VIAL SQ SCH ×2 (08:03→11:57)
[2018-08-22] MEDS: amLODIPine 5 MG TABLET PO SCH (08:03)
[2018-08-22] MEDS: levoFLOXacin 750 MG TABLET PO SCH (08:03)
[2018-08-22] MEDS: Metoprolol XL (24 HR) Succ 50 MG TAB.ER.24H PO SCH (08:03)
[2018-08-22 11:54] VITALS: BP 107/55
--- NOTE | 2018-08-22 13:30 | Discharge Summary ---
- NOTES TO OUTPATIENT PROVIDER Notes to Outpatient Provider: Will need clinic follow-up in 2-3 weeks to follow up with pulmonology and get repeat his chest CT in 4-6 weeks. Follow-up final cytology report from bronchoscopy as well as cultures. Orders not resulted at time of discharge: Pending orders 08/17/18 15:11 Culture,Blood [BC] Stat 08/20/18 10:43 AFB Culture, Respiratory [TB] Routine AFB Culture, Respiratory [TB] Routine AFB Smear [TB] Routine AFB Smear [TB] Routine Culture,Respiratory [RM] Routine Culture,Respiratory [RM] Routine Fungal Culture [MYC] Routine Fungal Culture [MYC] Routine Legionella Culture [RM] Routine Legionella Culture [RM] Routine Date of Encounter: 08/22/18 Time of Encounter: 10:27 - Discharge Diagnosis (1) Non-small cell cancer of right lung Priority: Secondary Status: Chronic (2) Community acquired pneumonia Priority: Primary Status: Acute Qualifiers: Laterality: right Lung location: lower lobe of lung Qualified Code(s): J18.1 - Lobar pneumonia, unspecified organism (3) Failure of outpatient treatment Priority: Primary Status: Acute (4) Coronary artery disease Priority: Secondary Status: Acute Qualifiers: Coronary Disease-Associated Artery/Lesion type: [place] artery [place] vs. transplanted heart: [place] heart Associated angina: without angina Qualified Code(s): I25.10 - Atherosclerotic heart disease of [place] coronary artery without angina pectoris (5) Chronic respiratory failure Priority: Secondary Status: Acute Qualifiers: Respiratory failure complication: hypoxia Qualified Code(s): J96.11 - Chronic respiratory failure with hypoxia (6) COPD (chronic obstructive pulmonary disease) Priority: Secondary Status: Acute Qualifiers: COPD type: unspecified COPD Qualified Code(s): J44.9 - Chronic obstructive pulmonary disease, unspecified (7) Diabetes Priority: Secondary Status: Acute Qualifiers: Diabetes mellitus type: type 2 Diabetes mellitus supervisor intermediates insulin use: unspecified assisted insulin use status Diabetes mellitus complication status: without complication Qualified Code(s): E11.9 - Type 2 diabetes mellitus without complications (8) Acute and chronic respiratory failure with hypoxia Priority: Primary Status: Acute Hospital course: Mr. Johnson is a 72 year old male with past medical history of non-small cell cancer status post right lung removal, COPD, hypertension, hyperlipidemia, diabetes, CAD came with complaint of shortness of breath. He was started on Levaquin given he failed outpatient azithromycin treatment. Respiratory infectious panel, streptococcus and legionella antigen testing were negative. Patient continued to remain afebrile after [address] was obtained and antibiotics were broadened to vancomycin, CT was obtained which showed masslike opacity in the left hilum suspicious of infectious versus neoplasm. Pulmonology consult was obtained. Patient underwent bronchoscopy on 08/20/18 which showed left lower lobe mass, edema in left lower lobe, [place] plug and mucopurulent and return on with fluid installation. BAL, bacterial culture, viral culture and fungal culture were sent. Patient was started on steroids and antibiotics were broadened. Patient blood cultures remain negative and no growth were seen on bronchoscopy samples. Patient remained afebrile after de-escalating antibiotics from vancomycin, aztreonam and Levaquin to Levaquin. Patient otherwise hemodynamically stable and breathing at baseline. Patient to finish seven-day course of antibiotics and continue prednisone taper and will be prescribed Symbicort on discharge along with his home medication. Patient will need follow-up with pulmonology as outpatient in 2-3 weeks as well as a repeat CT in 4-6 weeks. Discharge discussed with: patient, family, nurse, social work, case management, cognos consultant - Time Spent with Patient Total time spent providing and/or coordinating discharge services: Time spent: Greater than 30 minutes (35) - Discharge Medications Prescriptions: New levoFLOXacin [Levaquin] 750 mg PO DAILY 1 Days #1 tablet predniSONE [PredniSONE] See Taper PO DAILY 12 Days #30 tablet Budesonide/Formoterol 160/4.5 [Symbicort 160/4.5] 1 puff IH BIDR 30 Days #1 hfa.aer.ad Continued Albuterol Sulfate [Proair Hfa] 1 puff IH AD PRN PRN Reason: Shortness Of Breath Tiotropium [Spiriva] 18 mcg IH DAILY Simvastatin [Zocor] 40 mg PO HS Acetaminophen [Non-Aspirin] 325 mg PO AD PRN PRN Reason: Pain Amlodipine Besylate 2.5 mg PO DAILY Guaifenesin [Mucinex] 600 mg PO BID PRN PRN Reason: Congestion Metformin HCl 500 mg PO BID Metoprolol Succinate [Toprol Xl] 100 mg PO DAILY Home Medications: Acetaminophen [Non-Aspirin] 325 mg PO AD PRN 04/02/16 [History] Albuterol Sulfate [Proair Hfa] 1 puff IH AD PRN 04/02/16 [History] Simvastatin [Zocor] 40 mg PO HS 04/02/16 [History] Tiotropium [Spiriva] 18 mcg IH DAILY 04/02/16 [History] Amlodipine Besylate 2.5 mg PO DAILY 08/17/18 [History] Guaifenesin [Mucinex] 600 mg PO BID PRN 08/17/18 [History] Metformin HCl 500 mg PO BID 08/17/18 [History] Metoprolol Succinate [Toprol Xl] 100 mg PO DAILY 08/17/18 [History] Budesonide/Formoterol 160/4.5 [Symbicort 160/4.5] 1 puff IH BIDR 30 Days #1 hfa.aer.ad 08/22/18 [Rx] levoFLOXacin [Levaquin] 750 mg PO DAILY 1 Days #1 tablet 08/22/18 [Rx] predniSONE [PredniSONE] See Taper PO DAILY 12 Days #30 tablet 08/22/18 [Rx] Allergies/Adverse Reactions: Allergy/AdvReac Type Severity Reaction Status Date / Time cephalexin [From Keflex] Allergy Severe Anaphylaxis Verified 04/15/18 11:20 Penicillins Allergy Severe Anaphylaxis Verified 04/15/18 11:20 Date of admission: 08/17/18 16:19 Primary care physician: Filiberto Weiss DO Consults: 08/18/18 09:30 Consult to Nurse Navigator [CONS] Routine Comment: pn, copd 08/19/18 16:24 Consult to Pulmonology [CONS] Routine Consulting Provider: [facility] Reason for Consult: bronchoscopy Call Completed: Yes Discharging clinician: Carlos Alberto Bess - Constitutional Vitals: Temp Pulse Resp BP Pulse Ox 98.5 F 78 19 107/55 93 08/22/18 11:53 08/22/18 11:53 08/22/18 11:53 08/22/18 11:53 08/22/18 11:53 Exam: General: In no acute distress. Respiratory exam: no accessory muscle use, mild crackles on Lt. Rt chest scar noted. No air entry on rt. Cardiovascular exam: RRR, +S1, +S2. no murmur, gallop, rubs. GI/Abdominal exam: Non-tender, Non-distended, normal bowel sounds, soft, no peritoneal signs. Extremities exam: 1+ pedal edema, pulses palpable in b/l lower extremities. no calf tenderness Neurological exam: CN II-XII intact, AO X3, no focal deficits. Skin exam: No skin rash - Patient Status Disposition: Home, Self-Care Condition: Fair - Discharge Instructions Follow Up With: Leslye Francis MD [Partnered Physician] - (schedule appointment for 6-8 weeks) Filiberto Weiss DO [Primary Care Provider] - - Diet and Activity Activity: increase activity as tolerated, wear oxygen at all times, wear oxygen at night
== END 2018-08-22 15:24 | disposition home or self-care (01) | DRG 190 ==
LOC: 2ANU 12:32 → EMEROOARM 12:32 → 2ANU 16:05 → SUATTDRO 16:19
PROVIDERS: ADMIT Internal Medicine Nephrology; ATTEND Internal Medicine
PROC: ENDOBRF (2018-08-20 10:15)

== ENCOUNTER 2018-11-21 10:11 | Inpatient (IN) ==
--- NOTE | 2018-11-21 10:38 | Emergency Department Note ---
Disposition Clinical Impression: Elevated brain natriuretic peptide (BNP) level Pneumonia Qualifiers: Pneumonia type: due to unspecified organism Laterality: left Lung location: unspecified part of lung Qualified Code(s): J18.9 - Pneumonia, unspecified organism Dyspnea Qualifiers: Dyspnea type: unspecified Qualified Code(s): R06.00 - Dyspnea, unspecified Disposition: Admitted As Inpatient Condition: Fair Forms: ED Satisfaction Letter Time of Disposition: 14:12 General Adult HPI - General Chief complaint: ED Shortness of Breath/Dyspnea Stated complaint: Pnuemonia Time Seen by Provider: 11/21/18 10:18 Source: patient, family Mode of arrival: wheelchair Limitations: no limitations Nursing Notes Reviewed: Yes Vital Signs Reviewed: Yes - History of Present Illness HPI Narrative: Patient is a 72-year-old male that presents emergency Department with reports of possible pneumonia. Patient states that he was seen at an outside hospital was diagnosed with pneumonia and was told to come here to [place]. Patient states that since July he has intermittent shortness of breath. Patient does state that he is oxygen dependent from 2-4 L of oxygen. Patient states that he has felt warm but is unsure if he has had a fever. Patient does report a cough that has been productive. Patient states that he was diagnosed with pneumonia but is not on any antibiotics at this time. Patient states that his oxygen saturation is generally around 88% at home and will sometimes go up to about 90. Patient states that he does have increased shortness of breath with ambulation and exertion but at rest he has not having any shortness of breath. Pain Scale: 5 - Related Data Home Medications Medication Instructions Recorded Confirmed Acetaminophen [Non-Aspirin] 325 mg PO AD PRN 04/02/16 08/17/18 Albuterol Sulfate [Proair Hfa] 1 puff IH AD PRN 04/02/16 08/17/18 Simvastatin [Zocor] 40 mg PO HS 04/02/16 08/17/18 Tiotropium [Spiriva] 18 mcg IH DAILY 04/02/16 08/17/18 Amlodipine Besylate 2.5 mg PO DAILY 08/17/18 08/17/18 Metformin HCl 500 mg PO BID 08/17/18 08/17/18 Metoprolol Succinate [Toprol Xl] 100 mg PO DAILY 08/17/18 08/17/18 Allergies Allergy/AdvReac Type Severity Reaction Status Date / Time cephalexin [From Keflex] Allergy Severe Anaphylaxis Verified 04/15/18 11:20 Penicillins Allergy Severe Anaphylaxis Verified 04/15/18 11:20 All systems ED: reviewed and negative except as stated. Constitutional: Denies: fever Cardiovascular: Denies: chest pain Respiratory: Reports: cough, dyspnea, sputum production Gastrointestinal: Denies: abdominal pain, nausea, vomiting Neurological: Denies: weakness, numbness, paresthesias Past Medical History - Past Medical History Medical history: Reports: cancer, COPD, diabetes, hyperlipidemia, myocardial infarction Psychiatric history: Reports: no psych history - Social History Smoking Status: Former smoker Smokeless Tobacco Status: No Alcohol use: Reports: none Drug use: Reports: none Physical Exam - General Limitations: no limitations General appearance: alert, in no apparent distress - Head Head exam: atraumatic, normocephalic - Eye Eye exam: Present: normal appearance, EOMI - Neck Neck exam: Present: normal inspection, full ROM, trachea midline - Respiratory Respiratory exam: Present: other (Coarse breath sounds bilaterally ) - Cardiovascular Cardiovascular exam: Present: regular rate, normal rhythm, normal heart sounds, +S1, +S2 - Abdominal Exam Abdominal exam: Present: soft, Non-Tender, normal bowel sounds - Neurological Exam Neurological exam: Present: alert, oriented X3 - Psychiatric Psychiatric exam: Present: normal affect, normal mood - Skin Skin exam: Present: warm, dry, intact Course Vital Signs Temperature 97.7 F 11/21/18 10:12 Pulse Rate 83 11/21/18 10:12 Respiratory Rate 20 11/21/18 10:12 Blood Pressure 147/70 11/21/18 10:12 O2 Sat by Pulse Oximetry 73 11/21/18 10:12 Temperature 97.7 F 11/21/18 10:40 Pulse Rate 69 11/21/18 11:30 Respiratory Rate 22 11/21/18 11:30 Blood Pressure 117/48 11/21/18 11:30 O2 Sat by Pulse Oximetry 92 11/21/18 11:30 Oxygen Delivery Oxygen Delivery Nasal Cannula Medical Decision Making - MDM Narrative Medical decision making narrative: Due the patient's emergency Department with reports of shortness breath we will obtain basic laboratory testing, chest x-ray and EKG. Patient's chest x-ray was concerning for an infiltrate on the left. Patient is a prior pneumonectomy on the right for prior lung cancer. Due to the chest x-ray findings and to go ahead and get a CT of the chest as well which showed concerning for nodules in the left upper lobe and enlarged mediastinal lymph nodes. This is concerning for possible recurrence of the patient's cancer. This was relayed to the patient and his that there is concern for recurrence of cancer. Due to the CT and chest x-ray findings we did go ahead and start the patient on low-dose Levaquin due to concern of potential pneumonia. Patient was also given a dose of Lasix due to being edematous and the lower extremities. Patient is normally oxygen dependent with 2-3 L but is requiring 4 L here with his oxygen saturations waxing and waning into the upper 80s. Due to these findings feel is most for for the patient be admitted to the hospital for further evaluation and management. I called and spoke the admitting hospitalist Dr. Moon and he is except the patient to their service. Patient admitted to hospital this time for further evaluation and management. - Medical Records Medical records reviewed: Yes I reviewed the patient's medical records. - Lab Data Lab results reviewed: Yes I reviewed the patient's lab results. Result diagrams: 11/21/18 10:37 11/21/18 10:37 Lab Results 11/21/18 11/21/18 11/21/18 Range/Units 10:37 10:37 10:37 WBC 8.4 (4.3-11.1) K/mcL RBC 4.19 (4.19-5.50) M/mcL Hgb 12.9 (12.9-16.9) g/dL Hct 43.0 (37.5-50.1) % MCV 102.6 H (83.0-100.0) fL MCH 30.8 (28.0-33.3) pg MCHC 30.0 L (31.6-35.5) g/dL RDW 13.4 (11.5-14.5) % Plt Count 249 (140-400) K/mcL MPV 10.5 (9.4-12.4) fL Immature Gran % 0.7 (0-4) % Seg Neutrophils % 77.8 % Lymphocytes % 14.6 % Monocytes % 5.4 % Eosinophils % 1.1 % Basophils % 0.4 % Neutrophils # 6.6 (1.6-8.9) K/mcL Lymphocytes # 1.2 (0.6-4.6) K/mcL Monocytes # 0.5 (0.0-1.3) K/mcL Eosinophils # 0.1 (0.0-0.6) K/mcL Basophils # 0.0 (0.0-0.2) K/mcL Sodium 139 (136-145) mEq/L Potassium 3.5 (3.5-5.1) mEq/L Chloride 94 L (98-107) mEq/L Carbon Dioxide 42 H* (23-29) mEq/L BUN 16 (8-23) mg/dL Creatinine 0.62 L (0.70-1.30) mg/dL Est GFR ( Amer) > 60 (> 60) Est GFR (Non-Af Amer) > 60 (> 60) BUN/Creatinine Ratio 26 (6-26) Glucose 234 H (70-105) mg/dL Calculated Osmolality 297 (280-300) Lactic Acid (0.5-2.2) mmol/L Calcium 9.2 (8.6-10.3) mg/dL Troponin I 0.03 (< 0.04) ng/mL B-Natriuretic Peptide 677 H (Less than 100) pg/mL 11/21/18 Range/Units 10:58 WBC (4.3-11.1) K/mcL RBC (4.19-5.50) M/mcL Hgb (12.9-16.9) g/dL Hct (37.5-50.1) % MCV (83.0-100.0) fL MCH (28.0-33.3) pg MCHC (31.6-35.5) g/dL RDW (11.5-14.5) % Plt Count (140-400) K/mcL MPV (9.4-12.4) fL Immature Gran % (0-4) % Seg Neutrophils % % Lymphocytes % % Monocytes % % Eosinophils % % Basophils % % Neutrophils # (1.6-8.9) K/mcL Lymphocytes # (0.6-4.6) K/mcL Monocytes # (0.0-1.3) K/mcL Eosinophils # (0.0-0.6) K/mcL Basophils # (0.0-0.2) K/mcL Sodium (136-145) mEq/L Potassium (3.5-5.1) mEq/L Chloride (98-107) mEq/L Carbon Dioxide (23-29) mEq/L BUN (8-23) mg/dL Creatinine (0.70-1.30) mg/dL Est GFR ( Amer) (> 60) Est GFR (Non-Af Amer) (> 60) BUN/Creatinine Ratio (6-26) Glucose (70-105) mg/dL Calculated Osmolality (280-300) Lactic Acid 1.6 (0.5-2.2) mmol/L Calcium (8.6-10.3) mg/dL Troponin I (< 0.04) ng/mL B-Natriuretic Peptide (Less than 100) pg/mL - Radiology Data Radiology results reviewed: Yes I reviewed the patient's radiology results. - EKG Data EKG #1 EKG attestation: Yes I reviewed and interpreted this EKG. EKG results narrative: EKG shows a sinus rhythm at a rate of 75 bpm, MD interval 126, QRS duration 118, QTC of 434. No evidence of STEMI and EKG however there are T-wave inversions in lead 3, aVF, V3, V4, V5. This is compared to previous EKG on 08/17/18. Attestation Statement - Attestation Attestation: Millie Erazo D.O., examined this patient and my medical decision-making was reviewed with the Resident Physician. I agree with the documented findings, disposition and treatment plan as described except to the extent set forth below.
--- NOTE | 2018-11-21 10:46 | Emergency Department Note ---
Disposition Clinical Impression: Mediastinal lymphadenopathy, Peripheral edema, Cough Acute and chronic respiratory failure Qualifiers: Respiratory failure complication: hypoxia Qualified Code(s): J96.21 - Acute and chronic respiratory failure with hypoxia Disposition: Admitted As Inpatient Condition: Fair Referrals: Filiberto Weiss DO [Primary Care Provider] - Forms: ED Satisfaction Letter Time of Disposition: 14:08 General Adult HPI - General Chief complaint: ED Shortness of Breath/Dyspnea Stated complaint: Pnuemonia Time Seen by Provider: 11/21/18 10:18 Source: patient, family Mode of arrival: wheelchair Limitations: no limitations - History of Present Illness Pain Scale: 5 - Related Data Home Medications Medication Instructions Recorded Confirmed Acetaminophen [Non-Aspirin] 325 mg PO AD PRN 04/02/16 11/21/18 Albuterol Sulfate [Proair Hfa] 90 mcg IH AD PRN 04/02/16 11/21/18 Simvastatin [Zocor] 40 mg PO HS 04/02/16 11/21/18 Tiotropium [Spiriva] 18 mcg IH DAILY 04/02/16 11/21/18 Amlodipine Besylate 2.5 mg PO DAILY 08/17/18 11/21/18 Metformin HCl 500 mg PO BID 08/17/18 11/21/18 Metoprolol Succinate [Toprol Xl] 100 mg PO DAILY 08/17/18 11/21/18 Allergies Allergy/AdvReac Type Severity Reaction Status Date / Time cephalexin [From Keflex] Allergy Severe Anaphylaxis Verified 04/15/18 11:20 Penicillins Allergy Severe Anaphylaxis Verified 04/15/18 11:20 Constitutional: Denies: fever Cardiovascular: Denies: chest pain Respiratory: Reports: cough, dyspnea, sputum production Gastrointestinal: Denies: abdominal pain, nausea, vomiting Neurological: Denies: weakness, numbness, paresthesias Past Medical History - Past Medical History Medical history: Reports: cancer, COPD, diabetes, hyperlipidemia, myocardial in farction Psychiatric history: Reports: no psych history - Social History Smoking Status: Former smoker Smokeless Tobacco Status: No Alcohol use: Reports: none Drug use: Reports: none Physical Exam - General Limitations: no limitations General appearance: alert, in no apparent distress Course Vital Signs Temperature 97.7 F 11/21/18 10:12 Pulse Rate 83 11/21/18 10:12 Respiratory Rate 11/21/18 10:12 Blood Pressure 147/70 11/21/18 10:12 O2 Sat by Pulse Oximetry 73 11/21/18 10:12 Temperature 97.7 F 11/21/18 10:40 Pulse Rate 69 11/21/18 11:30 Respiratory Rate 22 11/21/18 11:30 Blood Pressure 117/48 11/21/18 11:30 O2 Sat by Pulse Oximetry 92 11/21/18 11:30 Oxygen Delivery Oxygen Delivery Nasal Cannula Medical Decision Making - Lab Data Result diagrams: 11/21/18 10:37 11/21/18 10:37 Lab Results 11/21/18 11/21/18 11/21/18 Range/Units 10:37 10:37 10:37 WBC 8.4 (4.3-11.1) K/mcL RBC 4.19 (4.19-5.50) M/mcL Hgb 12.9 (12.9-16.9) g/dL Hct 43.0 (37.5-50.1) % MCV 102.6 H (83.0-100.0) fL MCH 30.8 (28.0-33.3) pg MCHC 30.0 L (31.6-35.5) g/dL RDW 13.4 (11.5-14.5) % Plt Count 249 (140-400) K/mcL MPV 10.5 (9.4-12.4) fL Immature Gran % 0.7 (0-4) % Seg Neutrophils % 77.8 % Lymphocytes % 14.6 % Monocytes % 5.4 % Eosinophils % 1.1 % Basophils % 0.4 % Neutrophils # 6.6 (1.6-8.9) K/mcL Lymphocytes # 1.2 (0.6-4.6) K/mcL Monocytes # 0.5 (0.0-1.3) K/mcL Eosinophils # 0.1 (0.0-0.6) K/mcL Basophils # 0.0 (0.0-0.2) K/mcL Sodium 139 (136-145) mEq/L Potassium 3.5 (3.5-5.1) mEq/L Chloride 94 L (98-107) mEq/L Carbon Dioxide 42 H* (23-29) mEq/L BUN 16 (8-23) mg/dL Creatinine 0.62 L (0.70-1.30) mg/dL Est GFR ( Amer) > 60 (> 60) Est GFR (Non-Af Amer) > 60 (> 60) BUN/Creatinine Ratio 26 (6-26) Glucose 234 H (70-105) mg/dL Calculated Osmolality 297 (280-300) Lactic Acid (0.5-2.2) mmol/L Calcium 9.2 (8.6-10.3) mg/dL Troponin I 0.03 (< 0.04) ng/mL B-Natriuretic Peptide 677 H (Less than 100) pg/mL 11/21/18 Range/Units 10:58 WBC (4.3-11.1) K/mcL RBC (4.19-5.50) M/mcL Hgb (12.9-16.9) g/dL Hct (37.5-50.1) % MCV (83.0-100.0) fL MCH (28.0-33.3) pg MCHC (31.6-35.5) g/dL RDW (11.5-14.5) % Plt Count (140-400) K/mcL MPV (9.4-12.4) fL Immature Gran % (0-4) % Seg Neutrophils % % Lymphocytes % % Monocytes % % Eosinophils % % Basophils % % Neutrophils # (1.6-8.9) K/mcL Lymphocytes # (0.6-4.6) K/mcL Monocytes # (0.0-1.3) K/mcL Eosinophils # (0.0-0.6) K/mcL Basophils # (0.0-0.2) K/mcL Sodium (136-145) mEq/L Potassium (3.5-5.1) mEq/L Chloride (98-107) mEq/L Carbon Dioxide (23-29) mEq/L BUN (8-23) mg/dL Creatinine (0.70-1.30) mg/dL Est GFR ( Amer) (> 60) Est GFR (Non-Af Amer) (> 60) BUN/Creatinine Ratio (6-26) Glucose (70-105) mg/dL Calculated Osmolality (280-300) Lactic Acid 1.6 (0.5-2.2) mmol/L Calcium (8.6-10.3) mg/dL Troponin I (< 0.04) ng/mL B-Natriuretic Peptide (Less than 100) pg/mL Attestation Statement - Attestation Attestation: Millie Erazo D.O., examined this patient and my medical decision-making was reviewed with the Resident Physician. I agree with the documented findings, disposition and treatment plan as described except to the extent set forth below. 72-year-old male past medical history of non-small cell lung cancer status post pneumonectomy years ago, recurring pneumonia who presents from [place] with a chief complaint of shortness of breath and concern for pneumonia. The patient's had symptoms for several days. States he was last treated for pneumonia at the end of July. I reviewed his hospitalization at that point showing a CT scan with a masslike consolidation that did have a bronchoscopy that was negative for malignancy. The patient reports subjective fevers and chills at home. He was noted to be 74% on arrival although unsure if he had his oxygen tank on. Within the room and connected the patient has an appropriate saturation. He is in no respiratory distress. General: Alert, no acute distress HENT: Normocephalic, Atraumatic Neck: No JVD Cardiovascular: Regular rate and rhythm. No appreciable murmurs Respiratory: Diminished breath sounds bilaterally, right greater than left Abdominal: Soft, non tender. No peritoneal findings Extremities: 1+ pitting edema Neuro: Alert, Mentating appropriately, No focal deficits Skin: Warm, Dry Plan: EKG, chest x-ray, labs, lactic acid and blood cultures. Anticipate pneumonia and starting antibiotics with admission. ED Procedure Note: EKG interpretation - I agree with the resident physician's documentation and interpretation of the patient's EKG. Sinus rhythm with rate of 75 beats or minute. Normal axis. Normal intervals. Early R-wave progression. He has T-wave inversions in the anterior and lateral leads. T-wave inversions in leads 3 and aVF as well. No gross ST elevations or depressions. Imaging and labs reviewed. CT shows worsening disease progression of his lung cancer. He also has an elevated BNP and appears [place] overloaded. Patient will be given Lasix as well as coverage for recent cough and pneumonia symptoms. Patient admitted to the hospitalist service.
[2018-11-21 10:58] LABS: Basophils % 0.4 %; Eosinophils # 0.1 K/mcL (0.0-0.6); Eosinophils % 1.1 %; Hemoglobin 12.9 g/dL (12.9-16.9); Immature Granulocytes % 0.7 % (0-4); Lymphocytes # 1.2 K/mcL (0.6-4.6); Lymphocytes % 14.6 %; Mean Corpuscular Hemoglobin 30.8 pg (28.0-33.3); Mean Corpuscular Volume 102.6 fL (83.0-100.0); Mean Platelet Volume 10.5 fL (9.4-12.4); Monocytes # 0.5 K/mcL (0.0-1.3); Monocytes % 5.4 %; Neutrophils # 6.6 K/mcL (1.6-8.9); Platelet Count 249 K/mcL (140-400); Red Blood Count 4.19 M/mcL (4.19-5.50); Red Cell Distribution Width 13.4 % (11.5-14.5); Segmented Neutrophils % 77.8 %; White Blood Count 8.4 K/mcL (4.3-11.1)
[2018-11-21 11:17] LABS: BUN/Creatinine Ratio 26 (6-26); Blood Urea Nitrogen 16 mg/dL (8-23); Calcium 9.2 mg/dL (8.6-10.3); Carbon Dioxide 42 mEq/L (23-29); Chloride 94 mEq/L (98-107); Glucose 234 mg/dL (70-105); Osmolality,Calculated 297 (280-300); Potassium 3.5 mEq/L (3.5-5.1); Sodium 139 mEq/L (136-145); Troponin I 0.03 ng/mL (< 0.04); eGFR For African Americans > 60 (> 60); eGFR For Non-African Americans > 60 (> 60)
[2018-11-21] MEDS ORDERED: Furosemide 40 MG/4 ML VIAL IVP ONE (13:40)
[2018-11-21] MEDS ORDERED: levoFLOXacin 750 MG/150 ML 750 MG/150 ML BAG IVPB ONE (13:40)
[2018-11-21] MEDS ORDERED: Ondansetron ODT 4 MG TAB.RAPDIS SL PRN (16:33)
[2018-11-21] MEDS ORDERED: Naloxone 0.4 MG/ML INJ IVP PRN (16:33)
--- NOTE | 2018-11-21 18:26 | Internal Med History&Physical ---
Date of Encounter: 11/21/18 Time of Encounter: 18:22 Internal Medicine - H&P: HPI Chief complaint: Dyspnea Admitted From: Home Plans for Post Hospital Care: Home History of present illness: Mr. Johnson is a 72 year old male with a history of non-small cell lung cancer with right pneumonectomy, COPD on chronic 2 L O2, diabetes, HLD, CAD presenting for dyspnea. Patient notes he has been feeling dyspneic for the last couple of days. Patient notes his baseline O2 sat is generally close to 90. Chest x-ray in emergency room was concerning for left basilar infiltrate. Chest CT showed nodules in the left upper lobe and in the large mediastinal lymph node. WBC was normal. Patient was afebrile. BP and heart rate were stable. BNP was elevated at 677. Patient did receive a dose of Lasix and states he feels he is breathing better now. Patient was also given a dose of levofloxacin. Patient desires full code. Patient notes that his pneumectomy was approximately 15 years ago. He knows that he was admitted for pneumonia in July 2018. At that time, he had a bronchoscopy and biopsy was taken which showed no ca gnancy. Past Med Surg Social Fam HX - Past Medical History Medical history: cancer, COPD, diabetes, hyperlipidemia, myocardial infarction Additional medical history: lung cancer Psychiatric history: no psych history - Past Surgical History Additional surgical history: right lung removed - Social History Smoking Status: Former smoker Smokeless Tobacco Status: No Alcohol use: none Drug use: none - Family History Mother Living Status: Father Living Status: Internal Medicine - H&P: Meds Acetaminophen [Non-Aspirin] 325 mg PO Q6H PRN 04/02/16 [History] Albuterol Sulfate [Proair Hfa] 2 inh IH Q6H PRN 04/02/16 [History] Simvastatin [Zocor] 40 mg PO HS 04/02/16 [History] Tiotropium [Spiriva] 18 mcg IH DAILY 04/02/16 [History] Amlodipine Besylate 2.5 mg PO DAILY 08/17/18 [History] Metformin HCl 500 mg PO BID 08/17/18 [History] Metoprolol Succinate [Toprol Xl] 100 mg PO DAILY 08/17/18 [History] Fluticasone/Vilanterol [Breo Ellipta 100-25 Mcg INH] 1 each IH DAILY 11/21/18 [History] Ipratropium [place] 2 spray NS BID 11/21/18 [History] Allergy/AdvReac Type Severity Reaction Status Date / Time cephalexin [From Keflex] Allergy Severe Anaphylaxis Verified 04/15/18 11:20 Penicillins Allergy Severe Anaphylaxis Verified 04/15/18 11:20 All Systems PM: A 10-system review of systems was performed and is negative for pertinent findings except as documented above in the HPI. Review of systems: Constitutional: No weight loss, no fever, no chills ENT/Mouth: No hearing changes, no congestion, no dysphagia Eyes: No redness, no discharge, no vision changes Cardiovascular: No chest pain, dilatations Respiratory: Dyspnea GI: No nausea, no vomiting, no diarrhea, no constipation, no blood in stool] Genitourinary: No dysuria, no urinary frequency, no hematuria Musculoskeletal: No arthralgias, no joint swelling Skin: No suspicious lesions Neuro: No weakness, no numbness, no loss of consciousness Psych: No anxiety, no depression, no changes in sleep - Constitutional Vitals: Temp Pulse Resp BP Pulse Ox 97.4 F L 18 71 126/67 97 11/21/18 16:37 11/21/18 16:37 11/21/18 16:37 11/21/18 16:37 11/21/18 16:37 General appearance: Present: A&O X 3, no acute distress, answers questions appropriately Exam: GENERAL APPEARANCE: Well developed, well nourished, alert and cooperative, and appears to be in no acute distress. HEENT: Normocephalic/atraumatic, PERRLA. NECK: Supple, nontender without lymphadenopathy. CARDIOVASCULAR: Normal S1, S2; regular rate and rhythm; no murmurs. RESPIRATORY: Bilateral air entry present; no crackles or wheezing appreciated ABDOMEN: Soft, nondistended, nontender; bowel sounds present. MUSKULOSKELETAL: No limitations in range of motion. EXTREMITIES: No edema, clubbing. NEUROLOGICAL: No focal neurological deficits. SKIN: Skin normal color, texture and turgor with no lesions or eruptions. PSYCHIATRIC: Judgment and reasoning; no hallucinations; normal affect. Internal Med - H&P Results - Labs CBC & Chem 7: 11/21/18 10:37 11/21/18 10:37 Labs: Short CBC 11/21/18 Range/Units 10:37 WBC 8.4 (4.3-11.1) K/mcL Hgb 12.9 (12.9-16.9) g/dL Hct 43.0 (37.5-50.1) % Plt Count 249 (140-400) K/mcL Neutrophils # 6.6 (1.6-8.9) K/mcL BMP 11/21/18 10:37 Sodium 139 Potassium 3.5 Chloride 94 L Carbon Dioxide 42 H* BUN 16 Creatinine 0.62 L Glucose 234 H Calcium 9.2 Cardiac Enzymes 11/21/18 Range/Units 10:37 Troponin I 0.03 (< 0.04) ng/mL - Impressions ITS Impressions Chest X-Ray 11/21/18 10:40 IMPRESSION: Stable appearance to the right lung field. Prominent interstitial markings throughout the lung on the left particularly the left lung base. This could represent edema or infiltrates. Interstitial spread of disease is difficult to exclude if the patient has a known malignancy. CT could better evaluate lung parenchyma if indicated. D/ / 11/21/2018 10:50:08 Ira Darby MD / leticia Interpreting Provider: Ira Darby MD Chest CT 11/21/18 12:47 IMPRESSION: 1. Disease progression. Interval development of interlobular irregular septal thickening with reticulonodular appearance and micro nodules in the left lower lung zones involving both upper and lower lobe with areas of confluence resulting in masslike consolidation. Additionally 2 nodules in the left upper lobe shows significant interval increase in size. Mild increase in size of most of the larger mediastinal lymph nodes. 2. Residual left lung shows emphysema. 3. Postsurgical changes with some residual fluid collection in the right hemithorax apical region. Right upper abdominal contents occupy most of the right hemithorax. The findings were sent to the [facility] at 1:20 pm on 11/21/2018to be communicated to a licensed caregiver. D/ / Gigi Mo MD / Gigi Mo MD Interpreting Provider: Gigi Mo MD - Assessment and Plan (1) Acute and chronic respiratory failure Current Visit: Yes Status: Acute Assessment and plan: Patient on baseline 2-3L NC now on 4L NC CXR concerning for left infiltrate CT showing left lung nodules with enlarged mediastinum Recent admission in July with negative bronchoscopy No leukocytosis, no fever, BP stable, HR stable Plan: Pulmonology consult PRN duonebs Continue home inhalers Doxycycline for possible PNA due to CXR stat procal, lactic acid: can consider d/c of abx if negative Qualifiers: Respiratory failure complication: hypoxia Qualified Code(s): J96.21 - Acute and chronic respiratory failure with hypoxia (2) COPD (chronic obstructive pulmonary disease) Current Visit: No Status: Acute Assessment and plan: see above Qualifiers: COPD type: unspecified COPD Qualified Code(s): J44.9 - Chronic obstructive pulmonary disease, unspecified (3) Diabetes Current Visit: No Status: Acute Assessment and plan: sliding scale insulin Qualifiers: Diabetes mellitus type: type 2 Diabetes mellitus halfway insulin use: unspecified halfway insulin use status Diabetes mellitus complication status: without complication Qualified Code(s): E11.9 - Type 2 diabetes mellitus without complications (4) Lung mass Current Visit: Yes Status: Acute Assessment and plan: see above - Time Spent With Patient Total time spent is greater than 50% in coordination of care (as documented) at patient's floor/unit and/or counseling patient: 35 minutes
[2018-11-21] MEDS ORDERED: D5% in Water 1,000 ML IVC PRN (19:02)
[2018-11-21] MEDS ORDERED: *HR* Dextrose 50 % in Water (Syg) 50 ML SYRINGE IVP PRN (19:02)
[2018-11-21] MEDS ORDERED: Dextrose Gel 15 GM/37.5 ML TUBE PO PRN ×2 (19:02)
[2018-11-21] MEDS: Doxycycline 100 MG CAPSULE PO SCH (20:13)
[2018-11-21] MEDS ORDERED: NON-FORMULARY MEDICATION 1 EACH EACH (Ipratropium Bromide 2 SPRAY) NS SCH (21:00)
[2018-11-21] MEDS: Budesonide/Formoterol 80/4.5 1 PUFF INH IH SCH (22:56)
[2018-11-22 06:12] LABS: Hematocrit 41.6 % (37.5-50.1); Hemoglobin 12.7 g/dL (12.9-16.9); Mean Corpuscular HGB Conc 30.5 g/dL (31.6-35.5); Mean Corpuscular Hemoglobin 30.5 pg (28.0-33.3); Mean Platelet Volume 10.3 fL (9.4-12.4); Platelet Count 230 K/mcL (140-400); Red Blood Count 4.16 M/mcL (4.19-5.50); Red Cell Distribution Width 13.6 % (11.5-14.5)
[2018-11-22 06:20] LABS: White Blood Count 15.1 K/mcL (4.3-11.1)
[2018-11-22 07:13] LABS: BUN/Creatinine Ratio 24 (6-26); Blood Urea Nitrogen 18 mg/dL (8-23); Calcium 9.3 mg/dL (8.6-10.3); Carbon Dioxide 42 mEq/L (23-29); Chloride 92 mEq/L (98-107); Glucose 246 mg/dL (70-105); Osmolality,Calculated 296 (280-300); Potassium 3.5 mEq/L (3.5-5.1); Sodium 138 mEq/L (136-145); eGFR For African Americans > 60 (> 60); eGFR For Non-African Americans > 60 (> 60)
[2018-11-22] MEDS: Doxycycline 100 MG CAPSULE PO SCH ×2 (08:21→20:51)
[2018-11-22] MEDS: amLODIPine 5 MG TABLET PO SCH (08:21)
[2018-11-22] MEDS: Metoprolol XL (24 HR) Succ 50 MG TAB.ER.24H PO SCH (08:22)
[2018-11-22] MEDS: Insulin LISPRO 300 UNITS/3 ML VIAL SQ SCH ×4 (08:33→20:37)
--- NOTE | 2018-11-22 09:06 | Pulmonology Consult Note ---
Date of Encounter: 11/22/18 Time of Encounter: 08:00 Assessment and Plan (1) Acute and chronic respiratory failure with hypoxia Current Visit: No Status: Acute Patient has acute on chronic respiratory failure with hypoxia to continue O2 supplementation to keep saturation between 88-90% (2) Lung nodule Current Visit: Yes Status: Acute Patient has has left upper lobe lung nodule that is in the lingular region which is enlarging concerning for malignancy. The mediastinal lymphadenopathy will start with endobronchial ultrasound is negative might need navigational bronchoscopy. (3) COPD (chronic obstructive pulmonary disease) Current Visit: No Status: Acute Patient COPD symptoms are stable no evidence of active wheezing to continue bronchodilators. If the wheezing worsens we will start him on steroids. Qualifiers: COPD type: unspecified COPD Qualified Code(s): J44.9 - Chronic obstructive pulmonary disease, unspecified (4) Mediastinal lymphadenopathy Current Visit: Yes Status: Acute Patient will be scheduled for endobronchial ultrasound on Saturday. History of Present Illness Consult date: 11/22/18 Requesting physician: Nas Mejias Chief complaint: shortness of breadth History of present illness: 72-year-old male with past medical history of COPD, non-small cell carcinoma support by pneumonectomy on the right side came in the month of July for left lower lobe consolidation was stable mediastinal and hilar lymphadenopathy at that time he had a bronchoscopy with negative BAL for malignancy no organism grew patient is a known patient to our outpatient pulmonary service patient followed up after that on October 06 seen by his primary furnace puncher with the plan to get a CT scan in October CT scan which was done during this hospitalization showed left upper lobe lung nodule with progression of mediastinal hilar lymphadenopathy concerning for malignancy patient will need a best to start with followed by possible navigational bronchoscopy . Patient on interview says that he is having cough and sputum production which is greenish in a lot but denies any fever or chills has Been treated as a COPD exacerbation with possible pneumonia and the suspicion lung nodules with enlarging mediastinal hilar lymphadenopathy patient will need EBUS if it is negative might need a naavigational bronchoscopy . Past Med Surg Social Fam HX - Past Medical History Medical history: cancer, COPD, diabetes, hyperlipidemia, myocardial infarction Additional medical history: lung cancer Psychiatric history: no psych history - Past Surgical History Additional surgical history: right lung removed - Social History Smoking Status: Former smoker Smokeless Tobacco Status: No Alcohol use: none Drug use: none - Family History Mother Living Status: Father Living Status: Medications and Allergies Acetaminophen [Non-Aspirin] 325 mg PO Q6H PRN 04/02/16 [History] Albuterol Sulfate [Proair Hfa] 2 inh IH Q6H PRN 04/02/16 [History] Simvastatin [Zocor] 40 mg PO HS 04/02/16 [History] Tiotropium [Spiriva] 18 mcg IH DAILY 04/02/16 [History] Amlodipine Besylate 2.5 mg PO DAILY 08/17/18 [History] Metformin HCl 500 mg PO BID 08/17/18 [History] Metoprolol Succinate [Toprol Xl] 100 mg PO DAILY 08/17/18 [History] Fluticasone/Vilanterol [Breo Ellipta 100-25 Mcg INH] 1 each IH DAILY 11/21/18 [History] Ipratropium [place] 2 spray NS BID 11/21/18 [History] Allergy/AdvReac Type Severity Reaction Status Date / Time cephalexin [From Keflex] Allergy Severe Anaphylaxis Verified 04/15/18 11:20 Penicillins Allergy Severe Anaphylaxis Verified 04/15/18 11:20 All Systems: The remainder of the systems were reviewed and are negative Physical Examination Vital Signs: Vital Signs, Last 4 Hours Temp Pulse Resp BP Pulse Ox 11/22/18 07:31 98.4 F 75 16 118/71 95 General appearance: no acute distress ENT: oropharynx moist Neck: supple Effort: normal Auscultation: left: wheezes (Some scattered wheezes) Cardiovascular: regular rate and rhythm Gastrointestinal: normoactive bowel sounds Extremities: no edema Musculoskeletal: no deformities Gait: normal gait normal mental status, non-focal exam Results - Laboratory Findings CBC and BMP: 11/22/18 05:43 11/22/18 05:43 Abnormal lab findings: Abnormal lab results WBC 15.1 K/mcL (4.3-11.1) H D 11/22/18 05:43 RBC 4.16 M/mcL (4.19-5.50) L 11/22/18 05:43 Hgb 12.7 g/dL (12.9-16.9) L 11/22/18 05:43 MCV 102.6 fL (83.0-100.0) H 11/21/18 10:37 MCHC 30.5 g/dL (31.6-35.5) L 11/22/18 05:43 Chloride 92 mEq/L (98-107) L 11/22/18 05:43 Carbon Dioxide 42 mEq/L (23-29) H* 11/22/18 05:43 Creatinine 0.62 mg/dL (0.70-1.30) L 11/21/18 10:37 Glucose 246 mg/dL (70-105) H 11/22/18 05:43 B-Natriuretic Peptide 677 pg/mL (Less than 100) H 11/21/18 10:37 - Microbiology Findings Microbiology Findings: Microbiology, Last 48 Hours 11/21/18 18:15 Streptococcus pneumoniae Antigen (M - Final Urine,Clean Catch - Clinical Findings Intake & Output: Intake & Output 11/21/18 11/22/18 11/22/18 23:59 07:59 15:59 Intake Total 150 / 150 Output Total 400 / 400 Balance 150 / 150 -400 / -400 Weight 92.718 kg Consult Discharge Plan - Plan Referrals: Filiberto Weiss DO [Primary Care Provider] -
[2018-11-22] MEDS: Ipratropium/Albuterol Neb 3 ML IH PRN ×2 (10:07→22:42)
[2018-11-22] MEDS: Budesonide/Formoterol 80/4.5 1 PUFF INH IH SCH ×2 (10:07→22:41)
[2018-11-22] MEDS: Tiotropium 18 MCG inhalation IH SCH (10:08)
[2018-11-22] MEDS: Aztreonam 2,000 MG in Water for inj. (sterile) 20 ML IVP SCH ×3 (12:41→23:29)
--- NOTE | 2018-11-22 15:13 | Internal Med Progress Note ---
Hospitalist Progress Note - Encounter Date of Encounter: 11/22/18 Time of Encounter: 15:11 - Subjective Interval History: Patient seen and examined. Patient states he is feeling better today. He is breathing more comfortably on 2.5L NC. Patient does report coughing up "green stuff" for the past few days. Patient denies chest pain or dizziness. - Exam Vitals: Temp Pulse Resp BP Pulse Ox 98.6 F 71 19 142/98 94 11/22/18 12:35 11/22/18 12:35 11/22/18 12:35 11/22/18 12:35 11/22/18 12:35 Exam: GENERAL APPEARANCE: Well developed, well nourished, alert and cooperative, and appears to be in no acute distress. HEENT: Normocephalic/atraumatic, PERRLA. NECK: Supple, nontender without lymphadenopathy. CARDIOVASCULAR: Normal S1, S2; regular rate and rhythm; no murmurs. RESPIRATORY: Left side air entry present; no breath sounds on right side; no appreciable crackles or wheezing ABDOMEN: Soft, nondistended, nontender; bowel sounds present. MUSKULOSKELETAL: No limitations in range of motion. EXTREMITIES: No edema, clubbing. NEUROLOGICAL: No focal neurological deficits. SKIN: Skin normal color, texture and turgor with no lesions or eruptions. PSYCHIATRIC: Judgment and reasoning; no hallucinations; normal affect. - Assessment and Plan (1) Acute and chronic respiratory failure Current Visit: Yes Status: Acute Assessment and Plan: Patient on baseline 2-3L NC now on 4L NC CXR concerning for left infiltrate CT showing left lung nodules with enlarged mediastinum Recent admission in July with negative bronchoscopy Leukocytosis now present Plan: Pulmonology consult: patient will need navigational bronchoscopy; tentatively planned for Saturday PRN duonebs Continue home inhalers Add aztreonam to doxycycline (2) COPD (chronic obstructive pulmonary disease) Current Visit: No Status: Acute Assessment and Plan: see above (3) Diabetes Current Visit: No Status: Acute Assessment and Plan: sliding scale insulin (4) Lung mass Current Visit: Yes Status: Acute Assessment and Plan: Per pulmonology: imaging concerning for possible malignancy; will require biopsy (5) DVT prophylaxis Current Visit: Yes Status: Acute Assessment and Plan: Patient at increased risk for VTE due to possible cancer Plan: subq heparin - Time Spent with Patient Total time spent is greater than 50% in coordination of care (as documented) at patient's floor/unit and/or counseling patient: 30 minutes Plan of Care Discussed with: patient Internal Medicine: Result - Labs CBC & Chem 7: 11/22/18 05:43 11/22/18 05:43 Labs: Short CBC 11/22/18 Range/Units 05:43 WBC 15.1 H D (4.3-11.1) K/mcL Hgb 12.7 L (12.9-16.9) g/dL Hct 41.6 (37.5-50.1) % Plt Count 230 (140-400) K/mcL BMP 11/22/18 05:43 Sodium 138 Potassium 3.5 Chloride 92 L Carbon Dioxide 42 H* BUN 18 Creatinine 0.74 Glucose 246 H Calcium 9.3 Consult Discharge Plan - Plan Referrals: Filiberto Weiss DO [Primary Care Provider] - (1) Acute and chronic respiratory failure Qualifiers: Respiratory failure complication: hypoxia Qualified Code(s): J96.21 - Acute and chronic respiratory failure with hypoxia (2) COPD (chronic obstructive pulmonary disease) Qualifiers: COPD type: unspecified COPD Qualified Code(s): J44.9 - Chronic obstructive pulmonary disease, unspecified (3) Diabetes Qualifiers: Diabetes mellitus type: type 2 Diabetes mellitus penitentiary insulin use: unspecified manager user experience insulin use status Diabetes mellitus complication status: without complication Qualified Code(s): E11.9 - Type 2 diabetes mellitus without complications
[2018-11-22] MEDS: *HR* Heparin 5,000 UNIT/ML VIAL SQ SCH (17:26)
[2018-11-23 02:03] LABS: ABG Base Excess 16 mEq/L (-2 to 3); ABG HCO3 46 mEq/L (21-27); ABG Oxygen Saturation 89 % (95-98); ABG PCO2 79 mmHg (35-45); ABG PH 7.37 pH Units (7.32-7.45); ABG PO2 62 mmHg (85-104); ABG TCO2 48 mEq/L (20-26)
[2018-11-23] MEDS: *HR* Heparin 5,000 UNIT/ML VIAL SQ SCH ×2 (05:53→14:56)
[2018-11-23] MEDS: Budesonide/Formoterol 80/4.5 1 PUFF INH IH SCH ×2 (08:02→19:55)
[2018-11-23] MEDS: Tiotropium 18 MCG inhalation IH SCH (08:03)
[2018-11-23] MEDS: Aztreonam 2,000 MG in Water for inj. (sterile) 20 ML IVP SCH ×3 (08:26→23:15)
[2018-11-23] MEDS: Insulin LISPRO 300 UNITS/3 ML VIAL SQ SCH ×4 (08:28→20:51)
[2018-11-23] MEDS: Doxycycline 100 MG CAPSULE PO SCH ×2 (08:30→20:57)
[2018-11-23] MEDS: Metoprolol XL (24 HR) Succ 50 MG TAB.ER.24H PO SCH (08:30)
[2018-11-23] MEDS: amLODIPine 5 MG TABLET PO SCH (08:30)
[2018-11-23] MEDS ORDERED: Ipratropium/Albuterol Neb 3 ML IH SCH (08:45)
[2018-11-23 09:07] LABS: Hematocrit 40.5 % (37.5-50.1); Hemoglobin 12.3 g/dL (12.9-16.9); Mean Corpuscular HGB Conc 30.4 g/dL (31.6-35.5); Mean Corpuscular Hemoglobin 31.1 pg (28.0-33.3); Mean Corpuscular Volume 102.3 fL (83.0-100.0); Mean Platelet Volume 10.5 fL (9.4-12.4); Platelet Count 219 K/mcL (140-400); Red Blood Count 3.96 M/mcL (4.19-5.50); Red Cell Distribution Width 13.9 % (11.5-14.5); White Blood Count 8.6 K/mcL (4.3-11.1)
[2018-11-23 09:30] LABS: BUN/Creatinine Ratio 26 (6-26); Blood Urea Nitrogen 18 mg/dL (8-23); Calcium 9.1 mg/dL (8.6-10.3); Carbon Dioxide 45 mEq/L (23-29); Chloride 95 mEq/L (98-107); Glucose 162 mg/dL (70-105); Osmolality,Calculated 291 (280-300); Potassium 3.8 mEq/L (3.5-5.1); Sodium 138 mEq/L (136-145); eGFR For African Americans > 60 (> 60); eGFR For Non-African Americans > 60 (> 60)
[2018-11-23 10:34] LABS: Troponin I < 0.03 ng/mL (< 0.04)
[2018-11-23] MEDS: Albuterol 2.5 MG/3 ML NEBULIZER IH SCH ×3 (11:01→19:55)
--- NOTE | 2018-11-23 13:23 | Pulmonology Progress Note ---
Date of Encounter: 11/23/18 Time of Encounter: 12:00 Assessment and Plan (1) Acute and chronic respiratory failure with hypoxia Current Visit: No Status: Acute This is multifactorial COPD exacerbation, pneumonia complicated by a hydrostatic pulmonary edema pulmonary embolism is also in the differential. Since chest x-ray stable we will get the CT angiography protocol to rule out any pulmonary embolism as patient is high risk for pulmonary embolism. (2) Lung nodule Current Visit: Yes Status: Acute Patient has this left upper lobe lung nodule. The slightly enlarging mediastina l and hilar lymphadenopathy concerning for malignancy patient is on schedule for endobronchial ultrasound with navigational bronchoscopy (3) COPD (chronic obstructive pulmonary disease) Current Visit: No Status: Acute Pneumonia with COPD exacerbation . To continue antibiotics , steroids and bronchodilators Qualifiers: COPD type: unspecified COPD Qualified Code(s): J44.9 - Chronic obstructive pulmonary disease, unspecified (4) Mediastinal lymphadenopathy Current Visit: Yes Status: Acute Patient is scheduled for EBUS . Subjective Principal diagnosis: COPD exacerbation Interval history: Patient coming with COPD exacerbation with possible pneumonia with increased cough and sputum production stay was started on steroids and antibiotics bronchodilators has sudden worsening of shortness of breath and hypoxia today suspected looks stable patient has some pedal edema can be a component of hydrostatic pulmonary edema playing a role patient slowly coming back to where he was yesterday . Objective PUL Vital signs: Last Vital Signs Temp 97.7 F 11/23/18 11:19 Pulse 69 11/23/18 11:19 Resp 18 11/23/18 11:19 BP 122/75 11/23/18 11:19 Pulse Ox 94 11/23/18 11:19 General appearance: no acute distress Effort: mildly labored Auscultation: left: wheezes Cardiovascular: regular rate and rhythm Gastrointestinal: normoactive bowel sounds Extremities: no cyanosis, edema Musculoskeletal: no deformities normal mental status, non-focal exam mood appropriate Results - Laboratory Findings CBC and BMP: 11/23/18 08:35 11/23/18 08:35 ABG ABG pH 7.37 pH Units (7.32-7.45) 11/23/18 01:48 ABG pCO2 79 mmHg (35-45) H* 11/23/18 01:48 ABG pO2 62 mmHg (85-104) L 11/23/18 01:48 ABG O2 Saturation 89 % (95-98) L 11/23/18 01:48 Abnormal lab findings: Abnormal lab results WBC 15.1 K/mcL (4.3-11.1) H D 11/22/18 05:43 RBC 3.96 M/mcL (4.19-5.50) L 11/23/18 08:35 Hgb 12.3 g/dL (12.9-16.9) L 11/23/18 08:35 MCV 102.3 fL (83.0-100.0) H 11/23/18 08:35 MCHC 30.4 g/dL (31.6-35.5) L 11/23/18 08:35 ABG pCO2 79 mmHg (35-45) H* 11/23/18 01:48 ABG pO2 62 mmHg (85-104) L 11/23/18 01:48 ABG HCO3 46 mEq/L (21-27) H 11/23/18 01:48 ABG Total CO2 48 mEq/L (20-26) H 11/23/18 01:48 ABG O2 Saturation 89 % (95-98) L 11/23/18 01:48 ABG Base Excess 16 mEq/L (-2 to 3) H 11/23/18 01:48 Chloride 95 mEq/L (98-107) L 11/23/18 08:35 Carbon Dioxide 45 mEq/L (23-29) H* 11/23/18 08:35 Creatinine 0.68 mg/dL (0.70-1.30) L 11/23/18 08:35 Glucose 162 mg/dL (70-105) H 11/23/18 08:35 POC Glucose 149 mg/dL (70-99) H 11/22/18 20:06 B-Natriuretic Peptide 677 pg/mL (Less than 100) H 11/21/18 10:37 - Microbiology Findings Microbiology Findings: Microbiology, Last 48 Hours 11/22/18 17:19 Blood Culture - Preliminary Peripheral Venipuncture Culture is incubating and being continuously monitored for growth. Final report to follow. 11/22/18 17:17 Blood Culture - Preliminary Peripheral Venipuncture Culture is incubating and being continuously monitored for growth. Final report to follow. 11/21/18 18:15 Streptococcus pneumoniae Antigen (M - Final Urine,Clean Catch - Clinical Findings Intake & Output: Intake & Output 11/22/18 11/23/18 11/23/18 23:59 07:59 15:59 Intake Total 40 / 40 20 / 160 140 / 160 Output Total 350 / 350 Balance 40 / -360 -330 / -190 140 / -190 Weight 92.9 kg Consult Discharge Plan - Plan Referrals: Filiberto Weiss DO [Primary Care Provider] -
--- NOTE | 2018-11-23 14:46 | Internal Med Progress Note ---
Hospitalist Progress Note - Encounter Date of Encounter: 11/23/18 Time of Encounter: 14:43 - Subjective Interval History: Patient seen and examined. Per nursing, patient had episode of desaturation overnight. Patient states he got up to go to the bathroom and felt very anxious. Patient was placed on O2 mask and his sat improved. He was transitioned back to NC but required 6L. This morning, he states he feels fine. He is definitely nervous about the possibility of a diagnosis of cancer again. He denies chest pain. - Exam Vitals: Temp Pulse Resp BP Pulse Ox 97.7 F 69 18 122/75 94 11/23/18 11:19 11/23/18 11:19 11/23/18 11:19 11/23/18 11:19 11/23/18 11:19 Exam: GENERAL APPEARANCE: Well developed, well nourished, alert and cooperative, and appears to be in no acute distress. HEENT: Normocephalic/atraumatic, PERRLA. NECK: Supple, nontender without lymphadenopathy. CARDIOVASCULAR: Normal S1, S2; regular rate and rhythm; no murmurs. RESPIRATORY: Left side air entry present; no breath sounds on right side; mild wheezing appreciated; no crackles ABDOMEN: Soft, nondistended, nontender; bowel sounds present. MUSKULOSKELETAL: No limitations in range of motion. EXTREMITIES: No edema, clubbing. NEUROLOGICAL: No focal neurological deficits. SKIN: Skin normal color, texture and turgor with no lesions or eruptions. PSYCHIATRIC: Judgment and reasoning; no hallucinations; normal affect. - Assessment and Plan (1) Acute and chronic respiratory failure Current Visit: Yes Status: Acute Assessment and Plan: Patient on baseline 2-3L NC now on 4L NC CXR concerning for left infiltrate CT showing left lung nodules with enlarged mediastinum Recent admission in July with negative bronchoscopy Leukocytosis developed during admission; resolved Patient has episode of desaturation overnight but now appears to be improving again; requiring 6L NC to maintain O2 sat Plan: Pulmonology consult: patient will need navigational bronchoscopy; tentatively planned for Saturday Schedule DuoNe as patient does not appear to be asking for it Continue home inhalers Add aztreonam to doxycycline (2) COPD (chronic obstructive pulmonary disease) Current Visit: No Status: Acute Assessment and Plan: see above (3) Diabetes Current Visit: No Status: Acute Assessment and Plan: sliding scale insulin (4) Lung mass Current Visit: Yes Status: Acute Assessment and Plan: Per pulmonology: imaging concerning for possible malignancy; will require biopsy (5) DVT prophylaxis Current Visit: Yes Status: Acute Assessment and Plan: Patient at increased risk for VTE due to possible cancer Plan: subq heparin - Time Spent with Patient Total time spent is greater than 50% in coordination of care (as documented) at patient's floor/unit and/or counseling patient: 35 minutes Plan of Care Discussed with: patient Internal Medicine: Result - Labs CBC & Chem 7: 11/23/18 08:35 11/23/18 08:35 Labs: Short CBC 11/23/18 Range/Units 08:35 WBC 8.6 (4.3-11.1) K/mcL Hgb 12.3 L (12.9-16.9) g/dL Hct 40.5 (37.5-50.1) % Plt Count 219 (140-400) K/mcL BMP 11/23/18 08:35 Sodium 138 Potassium 3.8 Chloride 95 L Carbon Dioxide 45 H* BUN 18 Creatinine 0.68 L Glucose 162 H Calcium 9.1 Cardiac Enzymes 11/23/18 Range/Units 08:35 Troponin I < 0.03 (< 0.04) ng/mL - ABG Interpretation ABG results: ABG ABG pH 7.37 pH Units (7.32-7.45) 11/23/18 01:48 ABG pCO2 79 mmHg (35-45) H* 11/23/18 01:48 ABG pO2 62 mmHg (85-104) L 11/23/18 01:48 ABG O2 Saturation 89 % (95-98) L 11/23/18 01:48 - Impressions Impressions Chest X-Ray 11/21/18 10:40 IMPRESSION: Stable appearance to the right lung field. Prominent interstitial markings throughout the lung on the left particularly the left lung base. This could represent edema or infiltrates. Interstitial spread of disease is difficult to exclude if the patient has a known malignancy. CT could better evaluate lung parenchyma if indicated. D/ / 11/21/2018 10:50:08 Ira Darby MD / leticia Interpreting Provider: Ira Darby MD Consult Discharge Plan - Plan Referrals: Filiberto Weiss, [Primary Care Provider] - (1) Acute and chronic respiratory failure Qualifiers: Respiratory failure complication: hypoxia Qualified Code(s): J96.21 - Acute a nd chronic respiratory failure with hypoxia (2) COPD (chronic obstructive pulmonary disease) Qualifiers: COPD type: unspecified COPD Qualified Code(s): J44.9 - Chronic obstructive pulmonary disease, unspecified (3) Diabetes Qualifiers: Diabetes mellitus type: type 2 Diabetes mellitus longterm insulin use: unspecified longterm insulin use status Diabetes mellitus complication status: without complication Qualified Code(s): E11.9 - Type 2 diabetes mellitus without complications
[2018-11-23] MEDS ORDERED: Furosemide 40 MG/4 ML VIAL IVP ONE (14:56)
[2018-11-23] MEDS: predniSONE 20 MG TABLET PO SCH (16:33)
[2018-11-23] MEDS ORDERED: Isovue-370 500 ML BOTTLE IVP ONE (19:11)
[2018-11-24] MEDS: Albuterol 2.5 MG/3 ML NEBULIZER IH SCH ×8 (00:37→23:37)
[2018-11-24 02:20] LABS: Hematocrit 40.2 % (37.5-50.1); Hemoglobin 12.1 g/dL (12.9-16.9); Mean Corpuscular HGB Conc 30.1 g/dL (31.6-35.5); Mean Corpuscular Hemoglobin 30.1 pg (28.0-33.3); Mean Platelet Volume 10.7 fL (9.4-12.4); Platelet Count 248 K/mcL (140-400); Red Blood Count 4.02 M/mcL (4.19-5.50); Red Cell Distribution Width 13.7 % (11.5-14.5); White Blood Count 9.9 K/mcL (4.3-11.1)
[2018-11-24 02:33] LABS: BUN/Creatinine Ratio 31 (6-26); Blood Urea Nitrogen 24 mg/dL (8-23); Calcium 8.9 mg/dL (8.6-10.3); Carbon Dioxide 38 mEq/L (23-29); Chloride 92 mEq/L (98-107); Glucose 266 mg/dL (70-105); Osmolality,Calculated 299 (280-300); Sodium 138 mEq/L (136-145); eGFR For African Americans > 60 (> 60); eGFR For Non-African Americans > 60 (> 60)
[2018-11-24] MEDS: *HR* Heparin 5,000 UNIT/ML VIAL SQ SCH ×2 (05:20→17:32)
[2018-11-24] MEDS: Tiotropium 18 MCG inhalation IH SCH (07:34)
[2018-11-24] MEDS: Budesonide/Formoterol 80/4.5 1 PUFF INH IH SCH ×2 (07:34→19:45)
[2018-11-24] MEDS: amLODIPine 5 MG TABLET PO SCH (10:38)
[2018-11-24] MEDS: predniSONE 20 MG TABLET PO SCH (10:38)
[2018-11-24] MEDS: Metoprolol XL (24 HR) Succ 50 MG TAB.ER.24H PO SCH (10:38)
[2018-11-24] MEDS: Aztreonam 2,000 MG in Water for inj. (sterile) 20 ML IVP SCH ×3 (10:39→23:57)
[2018-11-24] MEDS: Doxycycline 100 MG CAPSULE PO SCH ×2 (10:39→21:12)
[2018-11-24] MEDS: Insulin LISPRO 300 UNITS/3 ML VIAL SQ SCH ×4 (10:40→21:12)
--- NOTE | 2018-11-24 13:11 | Anesthesia Evaluation PreOp ---
Date of Encounter: 11/24/18 Time of Encounter: 15:10 - Past History Planned Operation: EBUS Cardiac History: [place], HTN, Hyperlipidemia, Other (CAD) Pulmonary History: Former smoker, COPD (chronic O2), Other (lung cancer s/p right pneumonectomy) FIELD SALES AGENT History: Denies Any Significant HX Other Medical History: Diabetes Type II Anesthesia History: No Prior Anesthetic Complications, Past Anesthesia Alcohol Use: none Drug use: none Medications and Allergies Acetaminophen [Non-Aspirin] 325 mg PO Q6H PRN 04/02/16 [History] Albuterol Sulfate [Proair Hfa] 2 inh IH Q6H PRN 04/02/16 [History] Simvastatin [Zocor] 40 mg PO HS 04/02/16 [History] Tiotropium [Spiriva] 18 mcg IH DAILY 04/02/16 [History] Amlodipine Besylate 2.5 mg PO DAILY 08/17/18 [History] Metformin HCl 500 mg PO BID 08/17/18 [History] Metoprolol Succinate [Toprol Xl] 100 mg PO DAILY 08/17/18 [History] Fluticasone/Vilanterol [Breo Ellipta 100-25 Mcg INH] 1 each IH DAILY 11/21/18 [History] Ipratropium [place] 2 spray NS BID 11/21/18 [History] Allergy/AdvReac Type Severity Reaction Status Date / Time cephalexin [From Keflex] Allergy Severe Anaphylaxis Verified 04/15/18 11:20 Penicillins Allergy Severe Anaphylaxis Verified 04/15/18 11:20 - Meds/Allergy Pre-op Review Medications Reviewed: Yes Allergies Reviewed: Yes Beta Blockers on Current Med List: No Anesthesia Results - Labs 11/24/18 01:25 11/24/18 01:25 Anesthesia Exam Selected Entries 11/24/18 10:48 11/24/18 11:46 Temperature 98 F Pulse Rate 60 Respiratory Rate 17 O2 Sat by Pulse Oximetry 98 Fraction of Inspired Oxygen % 44 Oxygen Flow Rate (LPM) 6 Oxygen Delivery Method Nasal Cannula Weight: 93kg NPO (# of Hours): 8 - HEENT Pupil (Motor): EOMI Mallampati: II Teeth: Edentulous Oral Opening: Greater than 3 - FIELD SALES AGENT LOC: Oriented FIELD SALES AGENT Motor: Normal RUE, Normal LUE, Normal RLE, Normal LLE, Normal Face FIELD SALES AGENT Sensory: Normal: RUE, LUE, RLE, LLE, Face - Cardiac Rhythm: Regular Murmur: None - Pulmonary Breath Sounds: left Clear (no BS on right) Anesthesia Assess/Plan ASA Score: 4 Level of consciousness: Cooperative, Oriented Anesthetic Plan: General Monitoring Plan: Standard Monitors Recovery Plan: PACU (agrees to GA)
[2018-11-24] MEDS ORDERED: *HR* Succinylcholine 200 MG/10 ML VIAL IVP ONE (13:12)
[2018-11-24] MEDS ORDERED: Lidocaine -MPF 4% 5 ML AMPUL ONE (13:12)
[2018-11-24] MEDS ORDERED: Lidocaine -MPF 2% 2 ML VIAL ONE (13:12)
[2018-11-24] MEDS ORDERED: *HR* Propofol 200 MG/20 ML VIAL IVP ONE (13:12)
--- NOTE | 2018-11-24 14:32 | Internal Med Progress Note ---
Hospitalist Progress Note - Encounter Date of Encounter: 11/24/18 Time of Encounter: 14:31 - Subjective Interval History: Patient seen and examined. No acute events. Patient stable on 6L NC. He denies chest pain. Says cough is better. - Exam Vitals: Temp Pulse Resp BP Pulse Ox 98 F 60 17 116/64 99 11/24/18 11:46 11/24/18 11:46 11/24/18 11:46 11/24/18 07:31 11/24/18 11:46 Exam: GENERAL APPEARANCE: Well developed, well nourished, alert and cooperative, and appears to be in no acute distress. HEENT: Normocephalic/atraumatic, PERRLA. NECK: Supple, nontender without lymphadenopathy. CARDIOVASCULAR: Normal S1, S2; regular rate and rhythm; no murmurs. RESPIRATORY: Left side air entry present; no breath sounds on right side; mild wheezing appreciated; no crackles ABDOMEN: Soft, nondistended, nontender; bowel sounds present. MUSKULOSKELETAL: No limitations in range of motion. EXTREMITIES: No edema, clubbing. NEUROLOGICAL: No focal neurological deficits. SKIN: Skin normal color, texture and turgor with no lesions or eruptions. PSYCHIATRIC: Judgment and reasoning; no hallucinations; normal affect. - Assessment and Plan (1) Acute and chronic respiratory failure Current Visit: Yes Status: Acute Assessment and Plan: Patient on baseline 2-3L NC now on 4L NC CXR concerning for left infiltrate CT showing left lung nodules with enlarged mediastinum Recent admission in July with negative bronchoscopy Leukocytosis developed during admission; resolved Patient has episode of desaturation 11/23/2018 but now appears to be improving again; requiring 6L NC to maintain O2 sat Plan: Pulmonology consult: navigational bronchoscopy today Schedule DuoNebs as patient does not appear to be asking for it Continue home inhalers Continue aztreonam and doxycycline (2) COPD (chronic obstructive pulmonary disease) Current Visit: No Status: Acute Assessment and Plan: see above (3) Diabetes Current Visit: No Status: Acute Assessment and Plan: sliding scale insulin (4) Lung mass Current Visit: Yes Status: Acute Assessment and Plan: Per pulmonology: imaging concerning for possible malignancy; will require biopsy (5) DVT prophylaxis Current Visit: Yes Status: Acute Assessment and Plan: Patient at increased risk for VTE due to possible cancer Plan: subq heparin - Time Spent with Patient Total time spent is greater than 50% in coordination of care (as documented) at patient's floor/unit and/or counseling patient: 40 minutes Internal Medicine: Result - Labs CBC & Chem 7: 11/24/18 01:25 11/24/18 01:25 Labs: Short CBC 11/24/18 Range/Units 01:25 WBC 9.9 (4.3-11.1) K/mcL Hgb 12.1 L (12.9-16.9) g/dL Hct 40.2 (37.5-50.1) % Plt Count 248 (140-400) K/mcL BMP 11/24/18 01:25 Sodium 138 Potassium 4.0 Chloride 92 L Carbon Dioxide 38 H BUN 24 H Creatinine 0.77 Glucose 266 H Calcium 8.9 - ABG Interpretation ABG results: ABG ABG pH 7.37 pH Units (7.32-7.45) 11/23/18 01:48 ABG pCO2 79 mmHg (35-45) H* 11/23/18 01:48 ABG pO2 62 mmHg (85-104) L 11/23/18 01:48 ABG O2 Saturation 89 % (95-98) L 11/23/18 01:48 - Impressions Impressions Chest X-Ray 11/23/18 16:15 IMPRESSION: Prior history of right pneumonectomy. Reticular and ground-glass opacities are relatively stable in the left lung. D/ / Jonathon Salas MD / Jonathon Salas MD Interpreting Provider: Jonathon Salas MD Chest CTA 11/23/18 21:17 IMPRESSION: 1. Status post right pneumonectomy. 2. No left pulmonary embolism. 3. Stable mediastinal adenopathy and multifocal left pulmonary nodules, presumably related to neoplasia. 4. Emphysema. 5. Left basilar infiltrate or atelectasis appears stable. Pneumonitis is a consideration. D/ / Anderson Sands / Anderson Sands Interpreting Provider: Anderson Sands Chest X-Ray 11/24/18 13:09 IMPRESSION: Left lung interstitial opacities and trace left pleural effusion are unchanged and may reflect edema or atypical pneumonia. D/ / 11/24/2018 13:17:01 Shirin Bess MD / brant Interpreting Provider: Shirin Bess MD Consult Discharge Plan - Plan Referrals: Filiberto Weiss DO [Primary Care Provider] - (1) Acute and chronic respiratory failure Qualifiers: Respiratory failure complication: hypoxia Qualified Code(s): J96.21 - Acute and chronic respiratory failure with hypoxia (2) COPD (chronic obstructive pulmonary disease) Qualifiers: COPD type: unspecified COPD Qualified Code(s): J44.9 - Chronic obstructive pulmonary disease, unspecified (3) Diabetes Qualifiers: Diabetes mellitus type: type 2 Diabetes mellitus senior living 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
[2018-11-24] MEDS ORDERED: Ondansetron 4 MG/2 ML VIAL ONE (14:53)
[2018-11-24] MEDS ORDERED: Dexamethasone 4 MG/ML VIAL ONE (14:53)
--- NOTE | 2018-11-24 16:56 | Anesthesia Evaluation Post Op ---
Date of Encounter: 11/24/18 Time of Encounter: 16:54 - Vital Signs Vital Signs: Vital Signs/O2 Sat, Most Current Temp Pulse Resp BP Pulse Ox 98.4 F 84 20 131/61 88 11/24/18 16:35 11/24/18 16:45 11/24/18 16:45 11/24/18 16:45 11/24/18 16:45 - Lungs Lungs: Clear Ascult./Percussion - Airway Airway: Non-obstructed - Cardiovascular Regular Rate - Mental Status Mental Status: Alert & Oriented, Answers Appropriately - Pain Pain Scale: 0 Pain Scale used: Numeric (1 - 10) - Nausea Vomiting Nausea Vomiting: Not Present - Hydration Hydration: NPO - Discharge PostOp Status: Transfer Patient to floor
[2018-11-24 20:43] LABS: Appearance of Body Fluid Cloudy (Clear); Volume of Body Fluid 13 mL
[2018-11-25 02:03] LABS: Hematocrit 39.8 % (37.5-50.1); Hemoglobin 11.9 g/dL (12.9-16.9); Mean Corpuscular HGB Conc 29.9 g/dL (31.6-35.5); Mean Corpuscular Hemoglobin 30.2 pg (28.0-33.3); Mean Platelet Volume 10.7 fL (9.4-12.4); Platelet Count 248 K/mcL (140-400); Red Blood Count 3.94 M/mcL (4.19-5.50); Red Cell Distribution Width 13.8 % (11.5-14.5); White Blood Count 9.5 K/mcL (4.3-11.1)
[2018-11-25] MEDS: Albuterol 2.5 MG/3 ML NEBULIZER IH SCH ×2 (04:16→08:04)
[2018-11-25 05:17] LABS: BUN/Creatinine Ratio 40 (6-26); Blood Urea Nitrogen 28 mg/dL (8-23); Calcium 9.6 mg/dL (8.6-10.3); Carbon Dioxide 39 mEq/L (23-29); Chloride 94 mEq/L (98-107); Glucose 180 mg/dL (70-105); Osmolality,Calculated 300 (280-300); Potassium 4.8 mEq/L (3.5-5.1); Sodium 140 mEq/L (136-145); eGFR For African Americans > 60 (> 60); eGFR For Non-African Americans > 60 (> 60)
[2018-11-25] MEDS: *HR* Heparin 5,000 UNIT/ML VIAL SQ SCH (05:39)
[2018-11-25 07:47] VITALS: BP 110/61
[2018-11-25] MEDS: Tiotropium 18 MCG inhalation IH SCH (08:05)
[2018-11-25] MEDS: Budesonide/Formoterol 80/4.5 1 PUFF INH IH SCH (08:05)
[2018-11-25] MEDS: Metoprolol XL (24 HR) Succ 50 MG TAB.ER.24H PO SCH (08:22)
[2018-11-25] MEDS: Aztreonam 2,000 MG in Water for inj. (sterile) 20 ML IVP SCH (08:22)
[2018-11-25] MEDS: Insulin LISPRO 300 UNITS/3 ML VIAL SQ SCH (08:22)
[2018-11-25] MEDS: amLODIPine 5 MG TABLET PO SCH (08:23)
[2018-11-25] MEDS: Doxycycline 100 MG CAPSULE PO SCH (08:23)
[2018-11-25] MEDS: predniSONE 20 MG TABLET PO SCH (08:23)
--- NOTE | 2018-11-25 09:38 | Electrocardiograph Report ---
[employer] [employer] Test Date: 2018-11-21 Pat Name: Didier Johnson Department: EXAM5 Room: 3B64 Gender: M Baking Factory Worker: : 1945 Requested By: Trevor Barrientos Order Number: [id number] [place] MD: Papa Guevara Measurements Intervals [place] Rate: 75 P: 12 WA: 126 QRS: -42 QRSD: 118 T: -27 QT: 415 QTc: 464 Interpretive Statements Sinus rhythm Nonspecific IVCD with LAD Nonspecific T abnormalities, diffuse leads Baseline wander in lead(s) I III aVL V2 V3 V5 Electronically Signed On 11-25-2018 9:36:51 EDT by Papa Guevara
--- NOTE | 2018-11-25 09:41 | Discharge Summary ---
- NOTES TO OUTPATIENT PROVIDER Notes to Outpatient Provider: F/u pathology report Orders not resulted at time of discharge: Pending orders 11/21/18 10:58 Culture,Blood [BC] Stat 11/21/18 16:55 Mycoplasma pneumoniae IgG IgM Stat 11/22/18 20:47 Viral Culture,Respiratory [RM] Stat 11/24/18 16:01 Cytology [PTH] Routine 11/24/18 16:02 AFB Culture, Respiratory [TB] Routine Culture,Respiratory,w Gram St [RM] Routine Fungal Culture [MYC] Routine Cytology [PTH] Routine Date of Encounter: 11/25/18 Time of Encounter: 09:35 - Discharge Diagnosis (1) Acute and chronic respiratory failure Priority: Primary Status: Acute Qualifiers: Respiratory failure complication: hypoxia Qualified Code(s): J96.21 - Acute and chronic respiratory failure with hypoxia (2) COPD (chronic obstructive pulmonary disease) Priority: Secondary Status: Acute Qualifiers: COPD type: unspecified COPD Qualified Code(s): J44.9 - Chronic obstructive pulmonary disease, unspecified (3) Diabetes Priority: Secondary Status: Acute Qualifiers: Diabetes mellitus type: type 2 Diabetes mellitus rn long term care insulin use: unspecified prison insulin use status Diabetes mellitus complication status: without complication Qualified Code(s): E11.9 - Type 2 diabetes mellitus without complications (4) Lung mass Priority: Secondary Status: Acute (5) DVT prophylaxis Priority: Secondary Status: Acute Hospital course: Mr. Johnson is a 72 year old male with PMH of Non-small cell lung cancer with right pneumonectomy, COPD on chronic O2, diabetes, HLD, CAD presented for dyspnea. Chest CT showed nodules in left upper lobe and an enlarged mediastinal lymph node which was concerning for malignancy. Chest x-ray was concerning for possible pneumonia. Patient was started on doxycycline as well as breathing treatments and steroids for possible COPD exacerbation and pulmonology was consulted. Pulmonology added aztreonam. Patient was stable on 4 L nasal cannula throughout most of the admission. He did have one episode where his oxygen saturation had increased, but this was likely due to anxiety. Patient underwent bronchoscopy with biopsy on 12/23/2018. Patient was quickly stable on discharge day. He was comfortable on 4 L nasal cannula. Pulmonology recommen ded continuation of doxycycline to complete course for 6 more days. He will also continue prednisone to complete course. He will follow up with pulmonology for biopsy report in 3-4 weeks. He will follow-up with his PCP in approximately 7-10 days. Discharge discussed with: patient - Time Spent with Patient Total time spent providing and/or coordinating discharge services: 40 minutes - Discharge Medications Prescriptions: New Doxycycline 100 mg PO BID #12 capsule predniSONE [PredniSONE] 40 mg PO DAILY #4 tablet Continued Albuterol Sulfate [Proair Hfa] 2 inh IH Q6H PRN PRN Reason: Shortness Of Breath Tiotropium [Spiriva] 18 mcg IH DAILY Simvastatin [Zocor] 40 mg PO HS Acetaminophen [Non-Aspirin] 325 mg PO Q6H PRN PRN Reason: Pain Amlodipine Besylate 2.5 mg PO DAILY Metformin HCl 500 mg PO BID Metoprolol Succinate [Toprol Xl] 100 mg PO DAILY Fluticasone/Vilanterol [Breo Ellipta 100-25 Mcg INH] 1 each IH DAILY Ipratropium [place] 2 spray NS BID Home Medications: Acetaminophen [Non-Aspirin] 325 mg PO Q6H PRN 04/02/16 [History] Albuterol Sulfate [Proair Hfa] 2 inh IH Q6H PRN 04/02/16 [History] Simvastatin [Zocor] 40 mg PO HS 04/02/16 [History] Tiotropium [Spiriva] 18 mcg IH DAILY 04/02/16 [History] Amlodipine Besylate 2.5 mg PO DAILY 08/17/18 [History] Metformin HCl 500 mg PO BID 08/17/18 [History] Metoprolol Succinate [Toprol Xl] 100 mg PO DAILY 08/17/18 [History] Fluticasone/Vilanterol [Breo Ellipta 100-25 Mcg INH] 1 each IH DAILY 11/21/18 [History] Ipratropium [place] 2 spray NS BID 11/21/18 [History] Doxycycline 100 mg PO BID #12 capsule 11/25/18 [Rx] predniSONE [PredniSONE] 40 mg PO DAILY #4 tablet 11/25/18 [Rx] Allergies/Adverse Reactions: Allergy/AdvReac Type Severity Reaction Status Date / Time cephalexin [From Keflex] Allergy Severe Anaphylaxis Verified 04/15/18 11:20 Penicillins Allergy Severe Anaphylaxis Verified 04/15/18 11:20 Date of admission: 11/23/18 15:13 Primary care physician: Filiberto Weiss DO Consults: 11/21/18 17:08 Consult to Pulmonology [CONS] Routine Consulting Provider: [facility] Reason for Consult: Abnormal CT lung with history of lung cancer Call Completed: Yes 11/23/18 01:35 Consult to Respiratory Therapy [CONS] Stat Reason for Consult: Patient's SpO2 in 70s. ABG and BiPAP ordered Call Completed: Yes 11/24/18 09:00 Consult to Nurse Navigator [CONS] Routine Comment: COPD Discharging clinician: Nas Mejias Anticipated date of discharge: 11/25/18 - Constitutional Vitals: Temp Pulse Resp BP Pulse Ox 98.0 F 83 83 110/61 16 11/25/18 07:45 11/25/18 07:45 11/25/18 08:08 11/25/18 07:45 11/25/18 08:08 General appearance: Present: A&O X 3, no acute distress, answers questions appropriately Exam: GENERAL APPEARANCE: Well developed, well nourished, alert and cooperative, and appears to be in no acute distress. HEENT: Normocephalic/atraumatic, PERRLA. NECK: Supple, nontender without lymphadenopathy. CARDIOVASCULAR: Normal S1, S2; regular rate and rhythm; no murmurs. RESPIRATORY: Left side air entry present; no breath sounds on right side; mild wheezing improved; no crackles ABDOMEN: Soft, nondistended, nontender; bowel sounds present. MUSKULOSKELETAL: No limitations in range of motion. EXTREMITIES: No edema, clubbing. NEUROLOGICAL: No focal neurological deficits. SKIN: Skin normal color, texture and turgor with no lesions or eruptions. PSYCHIATRIC: Judgment and reasoning; no hallucinations; normal affect. - Patient Status Disposition: Home, Self-Care Condition: Fair Functional capacity at discharge: independent ambulation Overall status at discharge: patient is progressing back to baseline - Discharge Instructions Follow Up With: Filiberto Weiss DO [Primary Care Provider] - Additional Instructions: F/u with Dr. Bynum, pulmonary, in 3-4 weeks. F/u with PCP in 7-10 days - Diet and Activity Activity: resume usual activities as tolerated Diet: advance to your usual diet
--- NOTE | 2018-11-25 17:11 | Pulmonology Progress Note ---
Date of Encounter: 11/25/18 Time of Encounter: 07:40 Assessment and Plan (1) COPD (chronic obstructive pulmonary disease) Status: Chronic Patient is feeling better and to continue current bronchodilators patient can follow-up as outpatient. Qualifiers: COPD type: unspecified COPD Qualified Code(s): J44.9 - Chronic obstructive pulmonary disease, unspecified (2) Mediastinal lymphadenopathy Status: Chronic Biopsy pending Patient can follow-up as outpatient and this is discussed with primary team. Subjective Principal diagnosis: COPD exacerbation Interval history: Patient is feeling better after bronchoscopy and he can breathe better. Objective PUL Vital signs: Last Vital Signs Temp 98.0 F 11/25/18 07:45 Pulse 83 11/25/18 07:45 Resp 83 11/25/18 08:08 BP 110/61 11/25/18 07:45 Pulse Ox 16 11/25/18 08:08 General appearance: no acute distress Eyes: nonicteric ENT: oropharynx moist Neck: supple Effort: mildly labored Auscultation: left: clear, right: diminished breath sounds Percussion: right: not dull Cardiovascular: regular rate and rhythm Gastrointestinal: normoactive bowel sounds, non-distended Extremities: no cyanosis normal mental status, non-focal exam mood appropriate Results - Laboratory Findings CBC and BMP: 11/25/18 01:22 11/25/18 04:22 ABG ABG pH 7.37 pH Units (7.32-7.45) 11/23/18 01:48 ABG pCO2 79 mmHg (35-45) H* 11/23/18 01:48 ABG pO2 62 mmHg (85-104) L 11/23/18 01:48 ABG O2 Saturation 89 % (95-98) L 11/23/18 01:48 Abnormal lab findings: Abnormal lab results WBC 15.1 K/mcL (4.3-11.1) H D 11/22/18 05:43 RBC 3.94 M/mcL (4.19-5.50) L 11/25/18 01:22 Hgb 11.9 g/dL (12.9-16.9) L 11/25/18 01:22 MCV 101.0 fL (83.0-100.0) H 11/25/18 01:22 MCHC 29.9 g/dL (31.6-35.5) L 11/25/18 01:22 ABG pCO2 79 mmHg (35-45) H* 11/23/18 01:48 ABG pO2 62 mmHg (85-104) L 11/23/18 01:48 ABG HCO3 46 mEq/L (21-27) H 11/23/18 01:48 ABG Total CO2 48 mEq/L (20-26) H 11/23/18 01:48 ABG O2 Saturation 89 % (95-98) L 11/23/18 01:48 ABG Base Excess 16 mEq/L (-2 to 3) H 11/23/18 01:48 Chloride 94 mEq/L (98-107) L 11/25/18 04:22 Carbon Dioxide 39 mEq/L (23-29) H 11/25/18 04:22 BUN 28 mg/dL (8-23) H 11/25/18 04:22 Creatinine 0.68 mg/dL (0.70-1.30) L 11/23/18 08:35 BUN/Creatinine Ratio 40 (6-26) H 11/25/18 04:22 Glucose 180 mg/dL (70-105) H 11/25/18 04:22 POC Glucose 240 mg/dL (70-99) H 11/24/18 20:03 B-Natriuretic Peptide 677 pg/mL (Less than 100) H 11/21/18 10:37 Fluid Appearance Cloudy (Clear) A 11/24/18 16:02 - Microbiology Findings Microbiology Findings: Microbiology, Last 48 Hours 11/24/18 16:02 Respiratory Culture - Preliminary Left Lower Lobe Lung 11/22/18 20:47 Respiratory Virus Culture - Preliminary Throat - Clinical Findings Intake & Output: Intake & Output 11/25/18 11/25/18 11/25/18 07:59 15:59 23:59 Intake Total 520 / 640 120 / 640 Output Total 200 / 200 Balance 320 / 440 120 / 440 Weight 94.9 kg Consult Discharge Plan - Plan Instructions: Pneumonia (DC) Additional Instructions: F/u with Dr. Bynum, pulmonary, in 3-4 weeks. F/u with PCP in 7-10 days Referrals: Leslye Francis MD [Partnered Physician] - (Appointment has been requested.) Filiberto Weiss DO [Primary Care Provider] - 12/02/18 8:30 am Prescriptions: Doxycycline 100 mg PO BID #12 capsule Transmission Status: Received by [facility]/pharmacy #[id number] predniSONE [PredniSONE] 40 mg PO DAILY #4 tablet Transmission Status: Received by [facility]/pharmacy #[id number]
== END 2018-11-25 10:55 | disposition home or self-care (01) | DRG 193 ==
LOC: 3BNU 10:11 → EMEROOARM 10:11 → SUATTDRO 14:53 → 3BNU 16:04
PROVIDERS: ADMIT Family Medicine; ATTEND Family Medicine

== ENCOUNTER 2019-01-25 03:48 | Inpatient (IN) ==
[2019-01-25] MEDS ORDERED: Ipratropium/Albuterol Neb 3 ML IH ONE (03:53)
[2019-01-25] MEDS ORDERED: methylPREDNISolone 125 MG/2 ML VIAL IVP ONE (03:53)
[2019-01-25] MEDS ORDERED: methylPREDNISolone 125 MG/2 ML VIAL ONE (03:54)
[2019-01-25] MEDS ORDERED: Ipratropium/Albuterol Neb 3 ML ONE (03:54)
[2019-01-25 04:16] LABS: Basophils % 0.2 %; Eosinophils % 0.1 %; Immature Granulocytes % 0.5 % (0-4); Lymphocytes # 0.8 K/mcL (0.6-4.6); Mean Corpuscular HGB Conc 31.8 g/dL (31.6-35.5); Mean Corpuscular Hemoglobin 30.4 pg (28.0-33.3); Mean Corpuscular Volume 95.4 fL (83.0-100.0); Mean Platelet Volume 10.6 fL (9.4-12.4); Neutrophils # 17.3 K/mcL (1.6-8.9); Platelet Count 171 K/mcL (140-400); Red Blood Count 4.61 M/mcL (4.19-5.50); Red Cell Distribution Width 14.3 % (11.5-14.5); Segmented Neutrophils % 90.2 %; White Blood Count 19.1 K/mcL (4.3-11.1)
[2019-01-25 04:35] LABS: Troponin I 0.05 ng/mL (< 0.04)
[2019-01-25 04:44] LABS: BUN/Creatinine Ratio 21 (6-26); Blood Urea Nitrogen 13 mg/dL (8-23); Calcium 9.5 mg/dL (8.6-10.3); Carbon Dioxide 27 mEq/L (23-29); Chloride 98 mEq/L (98-107); Glucose 202 mg/dL (70-105); Osmolality,Calculated 288 (280-300); Sodium 136 mEq/L (136-145); eGFR For African Americans > 60 (> 60); eGFR For Non-African Americans > 60 (> 60)
[2019-01-25] MEDS ORDERED: 0.9 % Sodium Chloride 1,000 ML IV ONE (04:52)
[2019-01-25] MEDS ORDERED: Ertapenem 1,000 MG in 0.9 % Sodium Chloride Mini Bag 100 ML IVPB STA (05:09)
[2019-01-25] MEDS ORDERED: Isovue-370 500 ML BOTTLE IVP ONE (05:45)
[2019-01-25 06:12] LABS: ABG Base Excess 5 mEq/L (-2 to 3); ABG HCO3 33 mEq/L (21-27); ABG Oxygen Saturation 98 % (95-98); ABG PCO2 64 mmHg (35-45); ABG PH 7.32 pH Units (7.32-7.45); ABG PO2 117 mmHg (85-104); ABG TCO2 35 mEq/L (20-26)
[2019-01-25] MEDS ORDERED: Naloxone 0.4 MG/ML INJ IVP PRN (07:48)
[2019-01-25] MEDS ORDERED: Ipratropium/Albuterol Neb 3 ML IH PRN (07:51)
[2019-01-25] MEDS: Ipratropium/Albuterol Neb 3 ML IH SCH ×4 (08:20→19:59)
[2019-01-25] MEDS ORDERED: Dextrose Gel 15 GM/37.5 ML TUBE PO PRN ×2 (08:33)
[2019-01-25] MEDS ORDERED: D5% in Water 1,000 ML IVC PRN (08:33)
[2019-01-25] MEDS ORDERED: *HR* Dextrose 50 % in Water (Syg) 50 ML SYRINGE IVP PRN (08:33)
[2019-01-25] MEDS: Insulin LISPRO 300 UNITS/3 ML VIAL SQ SCH ×2 (11:34→17:29)
[2019-01-25] MEDS ORDERED: *HR* Heparin 5,000 UNIT/ML VIAL IVP PRN (12:27)
[2019-01-25] MEDS ORDERED: *HR* Heparin 5,000 UNIT/ML VIAL IVP ONE (12:27)
[2019-01-25] MEDS ORDERED: Metoprolol XL (24 HR) Succ 25 MG TAB.ER.24H PO SCH (12:29)
[2019-01-25 13:20] LABS: Heparin anti-factor XA UFH 0.01 IU/mL (0.30-0.70)
[2019-01-25 13:21] LABS: Prothrombin Time 11.2 Seconds (9.4-12.1)
[2019-01-25] MEDS: Aspirin Enteric Coated 81 MG Tablet PO SCH (14:26)
[2019-01-25] MEDS: Heparin 25,000 UNIT/250 ML D5W 25,000 UNIT/250 ML IV.SOLN IVC SCH (14:27)
[2019-01-25] MEDS: Aztreonam 1,000 MG in 0.9 % Sodium Chloride Mini Bag 100 ML IVPB SCH ×2 (16:00→23:14)
[2019-01-25] MEDS ORDERED: GuaiFENesin/Dextromethorphan TABLET PO PRN (16:07)
[2019-01-25] MEDS: Doxycycline 100 MG in 0.9 % Sodium Chloride Mini Bag 100 ML IVPB SCH (17:29)
[2019-01-25] MEDS: MethylPREDNISolone 40 MG/ML VIAL IVP SCH (17:29)
[2019-01-26] MEDS: Ipratropium/Albuterol Neb 3 ML IH SCH ×8 (00:10→23:43)
[2019-01-26 03:40] LABS: Basophils % 0.1 %; Hematocrit 39.7 % (37.5-50.1); Immature Granulocytes % 0.4 % (0-4); Lymphocytes # 0.4 K/mcL (0.6-4.6); Lymphocytes % 2.5 %; Mean Corpuscular HGB Conc 31.2 g/dL (31.6-35.5); Mean Corpuscular Hemoglobin 30.8 pg (28.0-33.3); Mean Corpuscular Volume 98.8 fL (83.0-100.0); Mean Platelet Volume 11.3 fL (9.4-12.4); Monocytes # 0.4 K/mcL (0.0-1.3); Monocytes % 2.5 %; Neutrophils # 15.1 K/mcL (1.6-8.9); Platelet Count 127 K/mcL (140-400); Red Blood Count 4.02 M/mcL (4.19-5.50); Red Cell Distribution Width 14.6 % (11.5-14.5); Segmented Neutrophils % 94.5 %
[2019-01-26 03:52] LABS: Hemoglobin 12.4 g/dL (12.9-16.9)
[2019-01-26 03:55] LABS: BUN/Creatinine Ratio 26 (6-26); Blood Urea Nitrogen 16 mg/dL (8-23); Calcium 9.2 mg/dL (8.6-10.3); Carbon Dioxide 31 mEq/L (23-29); Chloride 102 mEq/L (98-107); Glucose 198 mg/dL (70-105); Magnesium 1.8 mg/dL (1.6-2.6); Osmolality,Calculated 291 (280-300); Potassium 4.3 mEq/L (3.5-5.1); Sodium 137 mEq/L (136-145); eGFR For African Americans > 60 (> 60); eGFR For Non-African Americans > 60 (> 60)
[2019-01-26] MEDS ORDERED: *HR* LORazepam 2 MG/ML VIAL IVP ONE (04:24)
[2019-01-26] MEDS: MethylPREDNISolone 40 MG/ML VIAL IVP SCH ×2 (04:28→17:08)
[2019-01-26] MEDS: *HR* Heparin 5,000 UNIT/ML VIAL IVP PRN (04:28)
[2019-01-26] MEDS: Doxycycline 100 MG in 0.9 % Sodium Chloride Mini Bag 100 ML IVPB SCH ×2 (04:40→17:08)
[2019-01-26] MEDS ORDERED: *HR* Enoxaparin 40 MG/0.4 ML SYRINGE SQ SCH (06:00)
[2019-01-26] MEDS: Tiotropium 18 MCG inhalation IH SCH (07:22)
[2019-01-26] MEDS: Budesonide/Formoterol 80/4.5 1 PUFF INH IH SCH ×2 (07:32→20:10)
[2019-01-26] MEDS: Aztreonam 1,000 MG in 0.9 % Sodium Chloride Mini Bag 100 ML IVPB SCH (08:02)
[2019-01-26] MEDS: amLODIPine 5 MG TABLET PO SCH (08:06)
[2019-01-26] MEDS: Aspirin Enteric Coated 81 MG Tablet PO SCH (08:06)
[2019-01-26] MEDS: Metoprolol XL (24 HR) Succ 50 MG TAB.ER.24H PO SCH (08:07)
[2019-01-26] MEDS: Insulin LISPRO 300 UNITS/3 ML VIAL SQ SCH ×3 (08:08→17:07)
[2019-01-26 09:07] LABS: Troponin I 0.87 ng/mL (< 0.04)
[2019-01-26] MEDS: Heparin 25,000 UNIT/250 ML D5W 25,000 UNIT/250 ML IV.SOLN IVC SCH (13:59)
[2019-01-27 02:16] LABS: Basophils % 0.1 %; Hematocrit 39.6 % (37.5-50.1); Hemoglobin 12.4 g/dL (12.9-16.9); Immature Granulocytes % 0.4 % (0-4); Lymphocytes # 0.4 K/mcL (0.6-4.6); Lymphocytes % 2.5 %; Mean Corpuscular HGB Conc 31.3 g/dL (31.6-35.5); Mean Corpuscular Hemoglobin 30.3 pg (28.0-33.3); Mean Corpuscular Volume 96.8 fL (83.0-100.0); Mean Platelet Volume 10.7 fL (9.4-12.4); Monocytes # 0.4 K/mcL (0.0-1.3); Monocytes % 2.3 %; Neutrophils # 15.2 K/mcL (1.6-8.9); Platelet Count 144 K/mcL (140-400); Red Blood Count 4.09 M/mcL (4.19-5.50); Red Cell Distribution Width 14.5 % (11.5-14.5); Segmented Neutrophils % 94.7 %
[2019-01-27 02:35] LABS: BUN/Creatinine Ratio 35 (6-26); Blood Urea Nitrogen 25 mg/dL (8-23); Calcium 9.4 mg/dL (8.6-10.3); Carbon Dioxide 27 mEq/L (23-29); Chloride 98 mEq/L (98-107); Glucose 322 mg/dL (70-105); Magnesium 1.9 mg/dL (1.6-2.6); Osmolality,Calculated 297 (280-300); Potassium 4.8 mEq/L (3.5-5.1); Sodium 135 mEq/L (136-145); eGFR For African Americans > 60 (> 60); eGFR For Non-African Americans > 60 (> 60)
[2019-01-27] MEDS: Ipratropium/Albuterol Neb 3 ML IH SCH ×5 (03:56→20:40)
[2019-01-27 04:30] LABS: Estimated Average Glucose 171 mg/dl
[2019-01-27] MEDS: MethylPREDNISolone 40 MG/ML VIAL IVP SCH (05:43)
[2019-01-27] MEDS: Doxycycline 100 MG in 0.9 % Sodium Chloride Mini Bag 100 ML IVPB SCH ×2 (05:43→18:30)
[2019-01-27] MEDS: Budesonide/Formoterol 80/4.5 1 PUFF INH IH SCH ×2 (07:23→20:40)
[2019-01-27] MEDS: Tiotropium 18 MCG inhalation IH SCH (07:26)
[2019-01-27] MEDS: Insulin LISPRO 300 UNITS/3 ML VIAL SQ SCH ×3 (08:16→17:27)
[2019-01-27] MEDS: amLODIPine 5 MG TABLET PO SCH (08:19)
[2019-01-27] MEDS: Metoprolol XL (24 HR) Succ 50 MG TAB.ER.24H PO SCH (08:19)
[2019-01-27] MEDS: Aspirin Enteric Coated 81 MG Tablet PO SCH (08:20)
[2019-01-27] MEDS: levoFLOXacin 750 MG/150 ML 750 MG/150 ML BAG IVPB SCH (08:20)
[2019-01-27] MEDS ORDERED: *HR* Dextrose 50 % in Water (Syg) 50 ML SYRINGE IVP PRN (08:36)
[2019-01-27] MEDS ORDERED: D5% in Water 1,000 ML IVC PRN (08:36)
[2019-01-27] MEDS ORDERED: Dextrose Gel 15 GM/37.5 ML TUBE PO PRN ×2 (08:36)
[2019-01-27] MEDS ORDERED: predniSONE 20 MG TABLET PO SCH (09:00)
[2019-01-27] MEDS: Insulin DETEMIR 100 UNIT/ML X5UNITS SQ SCH (10:36)
[2019-01-27] MEDS: *HR* LORazepam 0.5 MG TABLET PO PRN ×2 (10:36→18:30)
[2019-01-27] MEDS: Heparin 25,000 UNIT/250 ML D5W 25,000 UNIT/250 ML IV.SOLN IVC SCH (12:01)
[2019-01-27] MEDS: *HR* Heparin 5,000 UNIT/ML VIAL IVP PRN (17:35)
[2019-01-28] MEDS: Ipratropium/Albuterol Neb 3 ML IH SCH ×7 (00:04→23:52)
[2019-01-28] MEDS: Doxycycline 100 MG in 0.9 % Sodium Chloride Mini Bag 100 ML IVPB SCH (05:14)
[2019-01-28 05:54] LABS: Basophils % 0.1 %; Eosinophils % 0.2 %; Hematocrit 40.5 % (37.5-50.1); Immature Granulocytes % 0.5 % (0-4); Lymphocytes # 1.2 K/mcL (0.6-4.6); Lymphocytes % 10.7 %; Mean Corpuscular HGB Conc 32.1 g/dL (31.6-35.5); Mean Corpuscular Hemoglobin 30.7 pg (28.0-33.3); Mean Corpuscular Volume 95.7 fL (83.0-100.0); Mean Platelet Volume 11.2 fL (9.4-12.4); Monocytes # 0.8 K/mcL (0.0-1.3); Neutrophils # 8.8 K/mcL (1.6-8.9); Platelet Count 156 K/mcL (140-400); Red Blood Count 4.23 M/mcL (4.19-5.50); Red Cell Distribution Width 14.6 % (11.5-14.5); Segmented Neutrophils % 81.5 %; White Blood Count 10.8 K/mcL (4.3-11.1)
[2019-01-28] MEDS: Budesonide/Formoterol 80/4.5 1 PUFF INH IH SCH ×2 (07:23→20:17)
[2019-01-28] MEDS: Tiotropium 18 MCG inhalation IH SCH (07:23)
[2019-01-28 07:44] LABS: BUN/Creatinine Ratio 30 (6-26); Blood Urea Nitrogen 21 mg/dL (8-23); Calcium 9.1 mg/dL (8.6-10.3); Carbon Dioxide 36 mEq/L (23-29); Chloride 99 mEq/L (98-107); Glucose 144 mg/dL (70-105); Magnesium 1.8 mg/dL (1.6-2.6); Osmolality,Calculated 296 (280-300); Potassium 3.9 mEq/L (3.5-5.1); Sodium 140 mEq/L (136-145); eGFR For African Americans > 60 (> 60); eGFR For Non-African Americans > 60 (> 60)
[2019-01-28] MEDS: Aspirin Enteric Coated 81 MG Tablet PO SCH (08:41)
[2019-01-28] MEDS: amLODIPine 5 MG TABLET PO SCH (08:41)
[2019-01-28] MEDS: Metoprolol XL (24 HR) Succ 50 MG TAB.ER.24H PO SCH (08:41)
[2019-01-28] MEDS: predniSONE 20 MG TABLET PO SCH (08:42)
[2019-01-28] MEDS: Insulin DETEMIR 100 UNIT/ML X5UNITS SQ SCH (08:42)
[2019-01-28] MEDS: Insulin LISPRO 300 UNITS/3 ML VIAL SQ SCH ×3 (08:43→16:43)
[2019-01-28] MEDS: levoFLOXacin 750 MG/150 ML 750 MG/150 ML BAG IVPB SCH (08:44)
[2019-01-28] MEDS: Heparin 25,000 UNIT/250 ML D5W 25,000 UNIT/250 ML IV.SOLN IVC SCH (08:45)
[2019-01-28] MEDS: Acetaminophen 325 MG TABLET PO PRN (08:48)
[2019-01-28] MEDS: *HR* LORazepam 0.5 MG TABLET PO PRN (11:04)
[2019-01-28] MEDS: Doxycycline 100 MG CAPSULE PO SCH (19:05)
[2019-01-28] MEDS: *HR* Heparin 5,000 UNIT/ML VIAL SQ SCH (20:26)
[2019-01-29] MEDS: Ipratropium/Albuterol Neb 3 ML IH SCH ×5 (03:33→19:45)
[2019-01-29 04:54] LABS: Basophils % 0.1 %; Eosinophils % 0.4 %; Hemoglobin 11.8 g/dL (12.9-16.9); Immature Granulocytes % 0.4 % (0-4); Lymphocytes # 1.2 K/mcL (0.6-4.6); Mean Corpuscular HGB Conc 31.9 g/dL (31.6-35.5); Mean Corpuscular Hemoglobin 30.4 pg (28.0-33.3); Mean Corpuscular Volume 95.4 fL (83.0-100.0); Mean Platelet Volume 11.4 fL (9.4-12.4); Monocytes # 0.6 K/mcL (0.0-1.3); Monocytes % 8.4 %; Neutrophils # 5.5 K/mcL (1.6-8.9); Platelet Count 151 K/mcL (140-400); Red Blood Count 3.88 M/mcL (4.19-5.50); Red Cell Distribution Width 14.6 % (11.5-14.5); Segmented Neutrophils % 74.7 %; White Blood Count 7.4 K/mcL (4.3-11.1)
[2019-01-29] MEDS: Doxycycline 100 MG CAPSULE PO SCH ×2 (05:05→16:50)
[2019-01-29] MEDS: *HR* Heparin 5,000 UNIT/ML VIAL SQ SCH ×3 (05:06→21:39)
[2019-01-29 05:14] LABS: BUN/Creatinine Ratio 32 (6-26); Blood Urea Nitrogen 19 mg/dL (8-23); Calcium 9.1 mg/dL (8.6-10.3); Carbon Dioxide 43 mEq/L (23-29); Chloride 99 mEq/L (98-107); Glucose 127 mg/dL (70-105); Magnesium 1.8 mg/dL (1.6-2.6); Osmolality,Calculated 292 (280-300); Potassium 3.7 mEq/L (3.5-5.1); Sodium 139 mEq/L (136-145); eGFR For African Americans > 60 (> 60); eGFR For Non-African Americans > 60 (> 60)
[2019-01-29] MEDS: Tiotropium 18 MCG inhalation IH SCH (07:31)
[2019-01-29] MEDS: Budesonide/Formoterol 80/4.5 1 PUFF INH IH SCH ×2 (07:32→19:45)
[2019-01-29] MEDS: levoFLOXacin 750 MG/150 ML 750 MG/150 ML BAG IVPB SCH (08:38)
[2019-01-29] MEDS: Insulin LISPRO 300 UNITS/3 ML VIAL SQ SCH ×3 (08:41→16:52)
[2019-01-29] MEDS: Insulin DETEMIR 100 UNIT/ML X5UNITS SQ SCH (08:43)
[2019-01-29] MEDS: predniSONE 20 MG TABLET PO SCH (08:46)
[2019-01-29] MEDS: amLODIPine 5 MG TABLET PO SCH (08:46)
[2019-01-29] MEDS: Aspirin Enteric Coated 81 MG Tablet PO SCH (08:47)
[2019-01-29] MEDS: Metoprolol XL (24 HR) Succ 50 MG TAB.ER.24H PO SCH (08:47)
[2019-01-29] MEDS: Acetaminophen 325 MG TABLET PO PRN (08:55)
[2019-01-29] MEDS: *HR* LORazepam 0.5 MG TABLET PO PRN (08:56)
[2019-01-30] MEDS: Ipratropium/Albuterol Neb 3 ML IH SCH ×5 (00:20→15:32)
[2019-01-30] MEDS: *HR* Heparin 5,000 UNIT/ML VIAL SQ SCH (05:48)
[2019-01-30] MEDS: Doxycycline 100 MG CAPSULE PO SCH (05:48)
[2019-01-30 07:08] LABS: Basophils % 0.3 %; Eosinophils # 0.1 K/mcL (0.0-0.6); Eosinophils % 1.1 %; Hemoglobin 11.5 g/dL (12.9-16.9); Immature Granulocytes % 0.7 % (0-4); Lymphocytes # 1.1 K/mcL (0.6-4.6); Lymphocytes % 14.8 %; Mean Corpuscular HGB Conc 31.1 g/dL (31.6-35.5); Mean Corpuscular Hemoglobin 30.5 pg (28.0-33.3); Mean Corpuscular Volume 98.1 fL (83.0-100.0); Mean Platelet Volume 10.9 fL (9.4-12.4); Monocytes # 0.7 K/mcL (0.0-1.3); Monocytes % 8.7 %; Neutrophils # 5.6 K/mcL (1.6-8.9); Platelet Count 148 K/mcL (140-400); Red Blood Count 3.77 M/mcL (4.19-5.50); Red Cell Distribution Width 14.6 % (11.5-14.5); Segmented Neutrophils % 74.4 %; White Blood Count 7.5 K/mcL (4.3-11.1)
[2019-01-30] MEDS: Tiotropium 18 MCG inhalation IH SCH (07:20)
[2019-01-30] MEDS: Budesonide/Formoterol 80/4.5 1 PUFF INH IH SCH (07:20)
[2019-01-30 07:32] LABS: BUN/Creatinine Ratio 32 (6-26); Blood Urea Nitrogen 19 mg/dL (8-23); Carbon Dioxide 35 mEq/L (23-29); Chloride 98 mEq/L (98-107); Magnesium 1.8 mg/dL (1.6-2.6); Potassium 3.8 mEq/L (3.5-5.1); Sodium 140 mEq/L (136-145); eGFR For African Americans > 60 (> 60); eGFR For Non-African Americans > 60 (> 60)
[2019-01-30 07:53] VITALS: BP 126/66
[2019-01-30 08:16] LABS: Glucose 97 mg/dL (70-105); Osmolality,Calculated 292 (280-300)
[2019-01-30] MEDS: Metoprolol XL (24 HR) Succ 50 MG TAB.ER.24H PO SCH (08:22)
[2019-01-30] MEDS: Acetaminophen 325 MG TABLET PO PRN (08:22)
[2019-01-30] MEDS: Insulin LISPRO 300 UNITS/3 ML VIAL SQ SCH (08:22)
[2019-01-30] MEDS: predniSONE 20 MG TABLET PO SCH (08:23)
[2019-01-30] MEDS: Aspirin Enteric Coated 81 MG Tablet PO SCH (08:23)
[2019-01-30] MEDS: amLODIPine 5 MG TABLET PO SCH (08:23)
[2019-01-30] MEDS: levoFLOXacin 750 MG/150 ML 750 MG/150 ML BAG IVPB SCH (08:23)
[2019-01-30] MEDS ORDERED: FLU Vac QV 19-20 (6Month+)/PF 0.5 ML SYRINGE IM ONE (08:40)
[2019-01-30] MEDS ORDERED: Insulin DETEMIR 100 UNIT/ML X5UNITS SQ SCH (09:00)
== END 2019-01-30 17:42 | disposition home or self-care (01) | DRG 871 ==
LOC: 2NENU 03:48 → EMEROOARM 03:48 → SUATTDRO 08:08 → 2NENU 09:02
PROVIDERS: ADMIT Internal Medicine; ATTEND Pharmacist

== ENCOUNTER 2019-03-22 11:58 | Inpatient (IN) ==
[2019-03-22] MEDS ORDERED: Ipratropium/Albuterol Neb 3 ML IH ONE (14:14)
[2019-03-22 14:40] LABS: ABG Base Excess 4 mEq/L (-2 to 3); ABG HCO3 33 mEq/L (21-27); ABG Oxygen Saturation 86 % (95-98); ABG PCO2 71 mmHg (35-45); ABG PH 7.28 pH Units (7.32-7.45); ABG PO2 60 mmHg (85-104); ABG TCO2 35 mEq/L (20-26)
[2019-03-22] MEDS ORDERED: Acetaminophen 325 MG TABLET PO PRN (14:44)
[2019-03-22] MEDS ORDERED: *HR* HYDROcodone/Acet 5/325 mg TABLET PO PRN (14:44)
[2019-03-22] MEDS ORDERED: Naloxone 0.4 MG/ML INJ IVP PRN (14:44)
[2019-03-22] MEDS ORDERED: Ondansetron ODT 4 MG TAB.RAPDIS SL PRN (14:44)
[2019-03-22] MEDS ORDERED: Ipratropium/Albuterol Neb 3 ML IH PRN (14:59)
[2019-03-22] MEDS ORDERED: *HR* Dextrose 50 % in Water (Syg) 50 ML SYRINGE IVP PRN (15:15)
[2019-03-22] MEDS ORDERED: D5% in Water 1,000 ML IVC PRN (15:15)
[2019-03-22] MEDS ORDERED: Dextrose Gel 15 GM/37.5 ML TUBE PO PRN ×2 (15:15)
[2019-03-22] MEDS: 0.9 % Sodium Chloride 1,000 ML IVC SCH (15:43)
[2019-03-22] MEDS: Insulin LISPRO 300 UNITS/3 ML VIAL SQ SCH (15:51)
[2019-03-22] MEDS: Ipratropium/Albuterol Neb 3 ML IH SCH ×2 (15:51→19:34)
[2019-03-22] MEDS: MethylPREDNISolone 40 MG/ML VIAL IVP SCH (15:51)
[2019-03-22 17:10] LABS: ABG Base Excess 3 mEq/L (-2 to 3); ABG HCO3 32 mEq/L (21-27); ABG Oxygen Saturation 96 % (95-98); ABG PCO2 69 mmHg (35-45); ABG PH 7.28 pH Units (7.32-7.45); ABG PO2 97 mmHg (85-104); ABG TCO2 34 mEq/L (20-26)
[2019-03-22] MEDS: *HR* Heparin 5,000 UNIT/ML VIAL SQ SCH (18:33)
[2019-03-22 18:46] LABS: Adenovirus Not Detected (Not Detect); Bordetella Pertussis Not Detected (Not Detect); Chlamydophila pneumoniae Not Detected (Not Detect); Coronavirus 229E Not Detected (Not Detect); Coronavirus HKU1 Not Detected (Not Detect); Coronavirus NL63 Not Detected (Not Detect); Coronavirus OC43 Not Detected (Not Detect); Human Metapneumovirus Not Detected (Not Detect); Human Rhinovirus/Enterovirus Not Detected (Not Detect); Influenza A Subtype 2009 H1 Not Detected (Not Detect); Influenza B Not Detected (Not Detect); Mycoplasma pneumoniae Not Detected (Not Detect); Parainfluenza Virus 1 Not Detected (Not Detect); Parainfluenza Virus 2 Not Detected (Not Detect); Parainfluenza Virus 3 Not Detected (Not Detect); Parainfluenza Virus 4 Not Detected (Not Detect); Respiratory Syncytial Virus Not Detected (Not Detect)
[2019-03-22] MEDS: GuaiFENesin/Dextromethorphan TABLET PO SCH (20:05)
[2019-03-22] MEDS: Aztreonam 2,000 MG in 0.9 % Sodium Chloride Mini Bag 100 ML IVPB SCH (20:07)
[2019-03-23] MEDS: Ipratropium/Albuterol Neb 3 ML IH SCH ×6 (00:09→19:39)
[2019-03-23] MEDS: MethylPREDNISolone 40 MG/ML VIAL IVP SCH ×4 (00:25→23:15)
[2019-03-23] MEDS: Aztreonam 2,000 MG in 0.9 % Sodium Chloride Mini Bag 100 ML IVPB SCH ×3 (04:52→20:06)
[2019-03-23] MEDS: *HR* Heparin 5,000 UNIT/ML VIAL SQ SCH ×2 (05:24→17:49)
[2019-03-23 05:35] LABS: Basophils % 0.1 %; Hematocrit 37.2 % (37.5-50.1); Hemoglobin 11.8 g/dL (12.9-16.9); Immature Granulocytes % 0.6 % (0-4); Lymphocytes # 0.6 K/mcL (0.6-4.6); Lymphocytes % 4.1 %; Mean Corpuscular HGB Conc 31.7 g/dL (31.6-35.5); Mean Corpuscular Hemoglobin 31.3 pg (28.0-33.3); Mean Corpuscular Volume 98.7 fL (83.0-100.0); Mean Platelet Volume 10.5 fL (9.4-12.4); Monocytes # 0.5 K/mcL (0.0-1.3); Monocytes % 3.8 %; Neutrophils # 12.3 K/mcL (1.6-8.9); Platelet Count 145 K/mcL (140-400); Red Blood Count 3.77 M/mcL (4.19-5.50); Red Cell Distribution Width 14.6 % (11.5-14.5); Segmented Neutrophils % 91.4 %; White Blood Count 13.5 K/mcL (4.3-11.1)
[2019-03-23 05:56] LABS: BUN/Creatinine Ratio 36 (6-26); Blood Urea Nitrogen 22 mg/dL (8-23); Calcium 8.9 mg/dL (8.6-10.3); Carbon Dioxide 31 mEq/L (23-29); Chloride 102 mEq/L (98-107); Glucose 204 mg/dL (70-105); Magnesium 1.7 mg/dL (1.6-2.6); Osmolality,Calculated 299 (280-300); Potassium 4.6 mEq/L (3.5-5.1); Sodium 140 mEq/L (136-145); eGFR For African Americans > 60 (> 60); eGFR For Non-African Americans > 60 (> 60)
[2019-03-23] MEDS: Insulin LISPRO 300 UNITS/3 ML VIAL SQ SCH ×3 (08:34→16:40)
[2019-03-23] MEDS: GuaiFENesin/Dextromethorphan TABLET PO SCH ×2 (08:39→20:06)
[2019-03-23] MEDS: Azithromycin 500 MG in 0.9 % Sodium Chloride 250 ML IVPB SCH (08:39)
[2019-03-23] MEDS: Furosemide 20 MG TABLET PO SCH (13:57)
[2019-03-23] MEDS: 0.9 % Sodium Chloride 1,000 ML IVC SCH (13:57)
[2019-03-23] MEDS: Metoprolol XL (24 HR) Succ 50 MG TAB.ER.24H PO SCH (15:12)
[2019-03-23 16:24] LABS: ABG Base Excess 7 mEq/L (-2 to 3); ABG HCO3 36 mEq/L (21-27); ABG Oxygen Saturation 98 % (95-98); ABG PCO2 78 mmHg (35-45); ABG PH 7.28 pH Units (7.32-7.45); ABG PO2 121 mmHg (85-104); ABG TCO2 39 mEq/L (20-26); Blood Gas Modality AVAPS; Blood Gas VT 500 cc
[2019-03-24] MEDS: Ipratropium/Albuterol Neb 3 ML IH SCH ×6 (00:05→20:43)
[2019-03-24] MEDS ORDERED: Ondansetron 4 MG/2 ML VIAL IVP PRN (04:27)
[2019-03-24 05:24] LABS: Hematocrit 38.3 % (37.5-50.1); Hemoglobin 11.7 g/dL (12.9-16.9); Mean Corpuscular HGB Conc 30.5 g/dL (31.6-35.5); Mean Corpuscular Volume 101.3 fL (83.0-100.0); Mean Platelet Volume 10.9 fL (9.4-12.4); Platelet Count 155 K/mcL (140-400); Red Blood Count 3.78 M/mcL (4.19-5.50); Red Cell Distribution Width 14.6 % (11.5-14.5); White Blood Count 11.1 K/mcL (4.3-11.1)
[2019-03-24] MEDS: Aztreonam 2,000 MG in 0.9 % Sodium Chloride Mini Bag 100 ML IVPB SCH ×3 (05:38→21:09)
[2019-03-24] MEDS: *HR* Heparin 5,000 UNIT/ML VIAL SQ SCH ×2 (05:38→16:56)
[2019-03-24 05:43] LABS: BUN/Creatinine Ratio 52 (6-26); Blood Urea Nitrogen 30 mg/dL (8-23); Calcium 9.4 mg/dL (8.6-10.3); Carbon Dioxide 33 mEq/L (23-29); Chloride 104 mEq/L (98-107); Glucose 190 mg/dL (70-105); Osmolality,Calculated 305 (280-300); Potassium 4.8 mEq/L (3.5-5.1); Sodium 142 mEq/L (136-145); eGFR For African Americans > 60 (> 60); eGFR For Non-African Americans > 60 (> 60)
[2019-03-24 05:56] LABS: ABG Base Excess 6 mEq/L (-2 to 3); ABG HCO3 36 mEq/L (21-27); ABG Oxygen Saturation 92 % (95-98); ABG PCO2 84 mmHg (35-45); ABG PH 7.25 pH Units (7.32-7.45); ABG PO2 79 mmHg (85-104); ABG TCO2 39 mEq/L (20-26); Blood Gas Modality avaps; Blood Gas Pressure Support 8 cm H2O; Blood Gas VT 500 cc
[2019-03-24] MEDS: Budesonide/Formoterol 160/4.5 1 PUFF INH IH SCH ×2 (07:12→20:43)
[2019-03-24] MEDS ORDERED: Budesonide/Formoterol 160/4.5 1 PUFF INH IH ONE (07:45)
[2019-03-24] MEDS: Insulin LISPRO 300 UNITS/3 ML VIAL SQ SCH ×3 (08:54→16:59)
[2019-03-24] MEDS: Furosemide 20 MG TABLET PO SCH (09:55)
[2019-03-24] MEDS: Azithromycin 500 MG in 0.9 % Sodium Chloride 250 ML IVPB SCH (09:55)
[2019-03-24] MEDS: Metoprolol XL (24 HR) Succ 50 MG TAB.ER.24H PO SCH (09:55)
[2019-03-24] MEDS: amLODIPine 5 MG TABLET PO SCH (09:55)
[2019-03-24] MEDS: GuaiFENesin/Dextromethorphan TABLET PO SCH ×2 (09:55→21:08)
[2019-03-24] MEDS: MethylPREDNISolone 40 MG/ML VIAL IVP SCH ×3 (09:55→23:21)
[2019-03-24] MEDS ORDERED: Tiotropium 18 MCG inhalation IH SCH (10:00)
[2019-03-24 10:13] LABS: Magnesium 1.8 mg/dL (1.6-2.6); Phosphorous 2.3 mg/dL (2.7-4.5)
[2019-03-24] MEDS ORDERED: D10% in Water 500 ML IVC PRN (11:38)
[2019-03-24] MEDS ORDERED: Clinimix E 5%-15% SOLUTION 2,000 ML with MVI, adult with vitamin K 10 ML IVC SCH (17:00)
[2019-03-24] MEDS ORDERED: Aminoglycoside Consult 1 EACH MC ONE (23:44)
[2019-03-25] MEDS: Ipratropium/Albuterol Neb 3 ML IH SCH ×4 (00:06→11:30)
[2019-03-25 04:00] LABS: Immature Granulocytes % 0.3 % (0-4); Mean Platelet Volume 11.1 fL (9.4-12.4); Red Cell Distribution Width 14.5 % (11.5-14.5)
[2019-03-25 04:02] LABS: Hematocrit 38.2 % (37.5-50.1); Hemoglobin 11.3 g/dL (12.9-16.9); Lymphocytes # 0.3 K/mcL (0.6-4.6); Lymphocytes % 2.9 %; Mean Corpuscular HGB Conc 29.6 g/dL (31.6-35.5); Mean Corpuscular Hemoglobin 30.5 pg (28.0-33.3); Monocytes # 0.5 K/mcL (0.0-1.3); Monocytes % 4.5 %; Platelet Count 164 K/mcL (140-400); Red Blood Count 3.71 M/mcL (4.19-5.50); Segmented Neutrophils % 92.3 %; White Blood Count 10.6 K/mcL (4.3-11.1)
[2019-03-25 04:07] LABS: Neutrophils # 9.8 K/mcL (1.6-8.9)
[2019-03-25 04:12] LABS: BUN/Creatinine Ratio 59 (6-26); Blood Urea Nitrogen 35 mg/dL (8-23); Calcium 9.4 mg/dL (8.6-10.3); Carbon Dioxide 36 mEq/L (23-29); Chloride 99 mEq/L (98-107); Glucose 302 mg/dL (70-105); Osmolality,Calculated 309 (280-300); Phosphorous 1.8 mg/dL (2.7-4.5); Potassium 4.7 mEq/L (3.5-5.1); Sodium 140 mEq/L (136-145); Triglycerides 137 mg/dL (< 150); eGFR For African Americans > 60 (> 60); eGFR For Non-African Americans > 60 (> 60)
[2019-03-25 05:04] LABS: Platelet Estimate Normal (Normal)
[2019-03-25] MEDS: *HR* Heparin 5,000 UNIT/ML VIAL SQ SCH (05:15)
[2019-03-25] MEDS: Aztreonam 2,000 MG in 0.9 % Sodium Chloride Mini Bag 100 ML IVPB SCH (05:15)
[2019-03-25] MEDS ORDERED: *HR* LORazepam 2 MG/ML VIAL IVP ONE (05:48)
[2019-03-25] MEDS ORDERED: *HR* LORazepam 2 MG/ML VIAL ONE (05:54)
[2019-03-25] MEDS ORDERED: Atropine Sulfate 1% 40 DROP/2 ML BOTTLE SL PRN ×2 (07:07→15:34)
[2019-03-25] MEDS ORDERED: *HR* OxyCODONE Immed Rel 5 MG TABLET PO PRN (07:07)
[2019-03-25] MEDS: Budesonide/Formoterol 160/4.5 1 PUFF INH IH SCH (07:47)
[2019-03-25] MEDS: MethylPREDNISolone 40 MG/ML VIAL IVP SCH (08:23)
[2019-03-25] MEDS: *HR* LORazepam 2 MG/ML VIAL IVP PRN ×2 (08:40→15:01)
[2019-03-25] MEDS: Insulin LISPRO 300 UNITS/3 ML VIAL SQ SCH (08:44)
[2019-03-25] MEDS: GuaiFENesin/Dextromethorphan TABLET PO SCH (08:48)
[2019-03-25] MEDS: Furosemide 20 MG TABLET PO SCH (08:48)
[2019-03-25] MEDS: Metoprolol XL (24 HR) Succ 50 MG TAB.ER.24H PO SCH (08:48)
[2019-03-25] MEDS: amLODIPine 5 MG TABLET PO SCH (08:48)
[2019-03-25] MEDS ORDERED: predniSONE 20 MG TABLET PO SCH (09:00)
[2019-03-25] MEDS ORDERED: levoFLOXacin 750 MG TABLET PO SCH (09:00)
[2019-03-25] MEDS ORDERED: Acetaminophen 325 MG TABLET PO PRN (15:34)
[2019-03-25] MEDS ORDERED: Ipratropium/Albuterol Neb 3 ML IH PRN (15:34)
[2019-03-25] MEDS ORDERED: *HR* LORazepam 2 MG/ML VIAL IVP PRN (15:34)
[2019-03-25] MEDS ORDERED: Ondansetron 4 MG/2 ML VIAL IVP PRN (15:34)
[2019-03-25] MEDS ORDERED: Ondansetron ODT 4 MG TAB.RAPDIS SL PRN (15:34)
[2019-03-25] MEDS ORDERED: Ipratropium/Albuterol Neb 3 ML IH SCH (16:00)
[2019-03-25 20:56] VITALS: BP 100/74
[2019-03-25] MEDS ORDERED: GuaiFENesin/Dextromethorphan TABLET PO SCH (21:00)
[2019-03-25] MEDS ORDERED: Budesonide/Formoterol 160/4.5 1 PUFF INH IH SCH (22:00)
[2019-03-26] MEDS ORDERED: amLODIPine 5 MG TABLET PO SCH (09:00)
[2019-03-26] MEDS ORDERED: levoFLOXacin 750 MG TABLET PO SCH (09:00)
[2019-03-26] MEDS ORDERED: Metoprolol XL (24 HR) Succ 50 MG TAB.ER.24H PO SCH (09:00)
[2019-03-26] MEDS ORDERED: predniSONE 20 MG TABLET PO SCH (09:00)
[2019-03-26] MEDS ORDERED: Furosemide 20 MG TABLET PO SCH (09:00)
== END 2019-03-25 23:45 | disposition expired | DRG 871 ==
LOC: 2NENU → OBSVTOIN 14:06 → ICNU 03-23 13:57
PROVIDERS: ADMIT Internal Medicine; ATTEND Internal Medicine